=== PATIENT | female | born 1950 | race Caucasian/White ===

== ENCOUNTER 2018-09-28 06:50 | Outpatient (CLI) | payer MEDICARE ==
[~2018-09-28] VITALS: Ht 154.9 cm; Wt 81.6 kg
[2018-09-28] MEDS ORDERED: CIME800T63 PO (14:10)
[2018-09-28] MEDS ORDERED: PRAV20TA3 PO (14:10)
[2018-09-28] MEDS ORDERED: ASPI-586 PO (14:10)
[2018-09-28] MEDS ORDERED: METO-333 PO (14:10)
[2018-09-28] MEDS ORDERED: LOSA100T57 PO (14:10)
[2018-09-28] MEDS ORDERED: INSU100V16 SQ (14:16)
[2018-09-28] MEDS ORDERED: INSU100V6 SQ (14:16)
== END 2018-09-28 14:38 ==
LOC: PREOP 06:50
PROVIDERS: ATTEND Surgery
DX: Z01.818 Encounter for other preprocedural examination (principal)

== ENCOUNTER 2018-10-05 11:00 | Day surgery (SDC) | payer MEDICARE, BC ==
[~2018-10-05] VITALS: Ht 154.9 cm; Wt 81.6 kg
[~2018-10-05 11:00] MED LIST: ASPI-586 PO; CIME800T63 PO; INSU100V16 SQ; INSU100V6 SQ; LOSA100T57 PO; METO-333 PO; PRAV20TA3 PO
--- OUTSIDE RECORDS SUMMARY | 2018-10-05 11:11 | XMS REPORT | CCD ---
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 Phone KOREY BARRY, CUONG Berrios Attphykamar CUONG NAIR MD Allergies Allergy Code Allergy Type Reaction Status CODEINE 2670 Drug allergy Active Active Medications Medication Code Dose Units Frequency Route Modification Start Date/Time Aspirin 81MG Oral Tablet, Chewable 448369 81 MILLIGRAMS DAILY ORAL 03/13/2016 10:38 Prescription Detail 81 MILLIGRAMS ORAL DAILY Lantus 100U/1ML Subcutaneous Solution 769821 30 UNIT DAILY SUBCUTANEOUS 03/13/2016 10:38 Prescription Detail 30 UNIT SUBCUTANEOUS DAILY Losartan Potassium 25MG Oral Tablet 696442 25 MILLIGRAMS DAILY ORAL 03/13/2016 10:38 Prescription Detail 25 MILLIGRAMS ORAL DAILY metFORMIN HCl 500MG Oral Tablet 853967 1 TABLET DAILY BY MOUTH 03/13/2016 10:38 Prescription Detail 1 TABLET BY MOUTH DAILY x7 days, then take twice a day NovoLOG 100U/1ML Subcutaneous Solution 726081 1 EACH BEFORE EACH MEAL SUBCUTANEOUS 03/13/2016 10:38 Prescription Detail 1 EACH SUBCUTANEOUS BEFORE EACH MEAL Omeprazole 20 MG Oral Tablet, Delayed Release 274918 20 MG DAILY ORAL 03/13/2016 10:38 Prescription Detail 20 MG ORAL DAILY Problems Problem Code Start Date Resolved Date Status Acute pancreatitis 338826082 03/11/2016 Active Procedures Procedure Code Procedure Type Date FOOT [address] 05/11/2016 Results Unknown or Not Available. Encounters Encounter Diagnosis Diagnosis Code Start Date Contusion of left foot, initial encounter [id number] 05/11/2016 Function Status Unknown or Not Available. History of Immunizations Unknown or Not Available. Plan of Treatment Unknown or Not Available. Social History Smoking Status Code Start Date End Date Never smoker [id number] Vital Signs Unknown or Not Available. Function Status Unknown or Not Available. Goals Unknown or Not Available. ASSESSMENTS Unknown or Not Available. Health Concerns Section Unknown or Not Available.
--- OUTSIDE RECORDS SUMMARY | 2018-10-05 11:11 | XMS REPORT | CCD ---
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 Role Phone KAREEN BARRY, LEWIS Rodriguez Attphys 0 Allergies Allergy Code Allergy Type Reaction Status JANUVIA 138954 Drug allergy Active METFORMIN 6809 Drug allergy Active CLARITIN 788107 Drug allergy Active EPINEPHRINE 3992 Drug allergy Active CODEINE 2670 Drug allergy Active LIPITOR 819249 Drug allergy Active ACTOS 228845 Drug allergy Active DILAUDID 459290 Drug allergy Active HYDROCODONE 5489 Drug allergy Active VICODIN 789092 Drug allergy Active Active Medications Medication Code Dose Units Frequency Route Modification Start Date/Time Aspirin 81MG Oral Tablet, Chewable 842524 81 MILLIGRAMS DAILY ORAL 03/13/2016 10:38 Prescription Detail 81 MILLIGRAMS ORAL DAILY Problems Problem Code Start Date Resolved Date Status Vaginal AND cervical prolapse 91094785 Active Post-op pain 053228752 Active Procedures Unknown or Not Available. Results Unknown or Not Available. Function Status Unknown or Not Available. History of Immunizations Immunization Code Date pneumococcal polysaccharide PPV23 33 04/02/2017 Pneumococcal conjugate PCV 13 133 04/02/2016 Influenza, high dose seasonal 135 03/10/2017 influenza, injectable, quadrivalent, preservative free 150 2015 Plan of Treatment Unknown or Not Available. Social History Smoking Status Code Start Date End Date Never smoker [id number] Vital Signs Unknown or Not Available. Function Status Unknown or Not Available. Goals Unknown or Not Available. ASSESSMENTS Unknown or Not Available. Health Concerns Section Unknown or Not Available.
--- OUTSIDE RECORDS SUMMARY | 2018-10-05 11:11 | XMS REPORT | CCD ---
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 Allergies Allergy Code Allergy Type Reaction Status CODEINE 0 Drug allergy Active Procedures Unknown or Not Available. History of Immunizations Unknown or Not Available. Problems Unknown or Not Available. Results Unknown or Not Available. Active Medications Unknown or Not Available. Medications Administered During Visit Unknown or Not Available. Encounters Encounter Diagnosis Diagnosis Code Start Date Candidiasis, unspecified B379 09/07/2015 Social History Smoking Status Code Start Date End Date Never smoker [id number] Patient Decision Aids Unknown or Not Available. Discharge Instructions You were admitted to [facility] on 09/07/2015 22:24 with a principal diagnosis of Candidiasis, unspecified You were discharged from [facility] on 09/07/2015 23:41 Should you have any questions prior to discharge, please contact a member of your healthcare team. If you have left the hospital and have any questions, please contact your primary care physician. Chief Complaint and Reason For Visit Chief Complaint Date of Onset POSSIBLE MEDICATION REACTION Function Status Unknown or Not Available. Plan of Care Unknown or Not Available. Referral/Transition of Care Unknown or Not Available.
--- OUTSIDE RECORDS SUMMARY | 2018-10-05 11:11 | XMS REPORT ---
Discharge Summary 2.1 Created on: ALEYDA JOYNER : 1950 Sex: Female Author Author RAYMOND SILVA Unknown Address [address] [place], [place] [address] Care Team Providers Care Knifer Up Name Role Phone [employer]watchlist ROSENDA Auguste DO Attending [facility] [employer] MAX BERMUDEZ DO [facility] Functional Status No Data Found Immunization Immunization Date Status Additional Notes Code Code System pneumococcal polysaccharide PPV23 04/02/2017 Completed 33 CVX Pneumococcal conjugate PCV 13 04/02/2016 Completed 133 CVX Influenza, high dose seasonal 03/10/2017 Completed 135 CVX influenza, injectable, quadrivalent, preservative free 04/02 Completed 150 CVX influenza, injectable, quadrivalent, preservative free 04/08 Completed 150 CVX Mental Status No Data Found Results BEDSIDE GLUCOSE - Collect Date/Time: 07/21/2018 11:53 [facility] [employer] ID: [id number] [address], [place], [place], [address] [employer] ID: [id number] - [id number] [address], [place], [place], [address] LOINC: 22413-1 Test Value Unit Reference Range Code Code System GLUCOSE POCT 197 MG/DL L=70 H=100 96925-9 LOINC BEDSIDE GLUCOSE - Collect Date/Time: 07/21/2018 07:54 [employer] ID: [id number] [address], [place], [place], [address] [facility] [employer] ID: [id number] [address], [place], [place], [address] LOINC: 59247-3 Test Value Unit Reference Range Code Code System GLUCOSE POCT 165 MG/DL L=70 H=100 44526-4 LOINC CBC W/ MANUAL DIFF - Collect Date/Time: 07/21/2018 06:36 [facility] [employer] [facility] ID: [id number] [address] [facility] [address] [place], [place], [id number] [facility] ID: [id number] [address] [facility] [address], [place], [place], [address] LOINC: 26953-7 Test Value Unit Reference Range Code Code System WBC 6.8 TH/CMM L=4.5 H=10.8 98127-2 LOINC RBC 3.86 ML/CMM L= 4.20 H=5.40 789-8 LOINC HGB 10.6 G/DL L=12.0 H=16.0 718-7 LOINC HCT 33.9 % L=37.0 H=47.0 4544-3 LOINC MCV 88 FL L=81 H =99 MCH 27.5 PG L=27.0 H=33.0 MCHC 31.3 G/DL L=31.0 H=36.0 RDW SD 50 FL L=36 H=50 RDW CV 15.6 % L=0.0 H=14.8 MPV 10.0 FL L=9.3 H=12.5 PLT 272 TH/CMM L=130 H=440 777-3 LOINC NRBC# 0.00 TH/CMM L= 0.00 H=0.00 NRBC% 0.0 /100WBC L= 0.0 H=2.0 %NEUT 70.8 % %LYMP 19.3 % %MONO 6.1 % %EOS 2.8 % %BASO 0.4 % #NEUT 4.84 TH/CMM L= 2.10 H=8.20 #LYMP 1.32 TH/CMM L= 0.90 H=5.20 #MONO 0.42 TH/CMM L= 0.16 H=1.00 #EOS 0.19 TH/CMM L= 0.00 H=0.80 #BASO 0.03 TH/CMM L= 0.00 H=0.20 SEGS 78 % BANDS LYMPHS 17 % MONOS 4 % EOS 1 % BASO METAS MYELO PROS BLASTS ATYP LYMPHS RBC MORPH MICRO MACRO ANISO POIK HYPO 1+ POLYCHROMASIA COMPREHENSIVE METABOLIC PANEL - Collect Date/Time: 07/21/2018 06:36 [facility] ID: [id number] [address], [place], [place], [address] [facility] ID: [id number] [address] [facility] [address], [place], [place], [address] LOINC: 43011-2 Test Value Unit Reference Range Code Code System GLUCOSE 187 MG/DL L= 70 H=100 2345-7 LOINC SODIUM 142 MEQ/L L= 135 H=148 2951-2 LOINC POTASSIUM 4.6 MEQ/L L= 3.5 H=5.3 2823-3 LOINC CHLORIDE 115 MEQ/L L= 96 H=110 2075-0 LOINC CO2 21 MEQ/L L=22 H=29 2028-9 LOINC BUN 14 MG/DL L=8 H=22 3094-0 LOINC CREATININE 0.8 MG/DL L =0.6 H=1.6 2160-0 LOINC SGOT/AST 13 IU/L L=10 H=40 1920-8 LOINC SGPT/ALT 14 IU/L L=8 H=54 1742-6 LOINC ALK PHOS 66 IU/L L=35 H=115 6768-6 LOINC TOTAL PROTEIN 5.6 G/DL L=5.5 H=8.5 2885-2 LOINC ALBUMIN 3.0 G/DL L= 3.1 H=5.4 1751-7 LOINC TOTAL BILI 0.2 MG/DL L =0.0 H=1.5 1975-2 LOINC CALCIUM 7.7 MG/DL L= 8.2 H=10.6 49632-1 LOINC AGE 68 yrs GFR NonAA 71 GFR AA 86 eGFR 71 mL/min/1.7 eGFR AA* >60 BEDSIDE GLUCOSE - Collect Date/Time: 07/21/2018 01:29 [facility] [employer] ID: [id number] [address], [place], [place], [address] [employer] ID: [id number] - [id number] [address], [place], [place], [address] LOINC: 30048-9 Test Value Unit Reference Range Code Code System GLUCOSE POCT 166 MG/DL L=70 H=100 22070-7 LOINC BEDSIDE GLUCOSE - Collect Date/Time: 07/20/2018 20:41 [facility] [employer] ID: [id number] [address], [place], [place], [address] [employer] ID: [id number] - [id number] [address], [place], [place], [address] LOINC: 68798-1 Test Value Unit Reference Range Code Code System GLUCOSE POCT 266 MG/DL L=70 H=100 36513-4 LOINC BEDSIDE GLUCOSE - Collect Date/Time: 07/20/2018 16:44 [facility] [employer] ID: [id number] [address], [place], [place], [address] [employer] ID: [id number] - [id number] [address], [place], [place], [address] LOINC: 72533-3 Test Value Unit Reference Range Code Code System GLUCOSE POCT 189 MG/DL L=70 H=100 34770-5 LOINC BEDSIDE GLUCOSE - Collect Date/Time: 07/20/2018 11:57 [employer] ID: [id number] [address], [place], [place], [address] [facility] ID: [id number] [address], [place], [place], [address] LOINC: 32697-0 Test Value Unit Reference Range Code Code System GLUCOSE POCT 300 MG/DL L=70 H=100 75268-4 LOINC BEDSIDE GLUCOSE - Collect Date/Time: 07/20/2018 07:52 [facility] ID: [id number] [address], [place], [place], [address] [facility] ID: [id number] [address] [facility] [address], [place], [place], [address] LOINC: 27367-5 Test Value Unit Reference Range Code Code System GLUCOSE POCT 142 MG/DL L=70 H=100 00536-1 [facility] BASIC METABOLIC PANEL - Collect Date/Time: 07/20/2018 06:20 [facility] ID: [id number] [address], [place], [place], [address] [facility] ID: [id number] [address], [place], [place], [address] LOINC: 87368-9 Test Value Unit Reference Range Code Code System GLUCOSE 131 MG/DL L= 70 H=100 2345-7 LOINC SODIUM 143 MEQ/L L= 135 H=148 2951-2 LOINC POTASSIUM 3.3 MEQ/L L= 3.5 H=5.3 2823-3 LOINC CHLORIDE 107 MEQ/L L= 96 H=110 2075-0 LOINC CO2 25 MEQ/L L=22 H=29 2028-9 LOINC BUN 13 MG/DL L=8 H=22 3094-0 LOINC CREATININE 0.8 MG/DL L =0.6 H=1.6 2160-0 LOINC CALCIUM 8.5 MG/DL L= 8.2 H=10.6 89650-3 LOINC AGE 68 yrs GFR NonAA 71 GFR AA 86 eGFR 71 mL/min/1.7 eGFR AA* >60 CBC W/ AUTO DIFF (RFLX MAN DIFF IF IND) - Collect Date/Time: 07/20/2018 06:20 [facility] [employer] ID: [id number] [address], [place], [place], [address] [facility] [employer] [facility] ID: [id number] [address], [place], [place], [address] LOINC: 48533-4 Test Value Unit Reference Range Code Code System WBC 9.0 TH/CMM L=4.5 H=10.8 91717-6 LOINC RBC 4.26 ML/CMM L= 4.20 H=5.40 789-8 LOINC HGB 11.6 G/DL L=12.0 H=16.0 718-7 LOINC HCT 37.1 % L=37.0 H=47.0 4544-3 LOINC MCV 87 FL L=81 H =99 MCH 27.2 PG L=27.0 H=33.0 MCHC 31.3 G/DL L=31.0 H=36.0 RDW SD 49 FL L=36 H=50 RDW CV 15.6 % L=0.0 H=14.8 MPV 10.5 FL L=9.3 H=12.5 PLT 294 TH/CMM L=130 H=440 777-3 LOINC NRBC# 0.00 TH/CMM L= 0.00 H=0.00 NRBC% 0.0 /100WBC L= 0.0 H=2.0 %NEUT 70.2 % %LYMP 21.4 % %MONO 6.9 % %EOS 1.0 % %BASO 0.2 % #NEUT 6.31 TH/CMM L= 2.10 H=8.20 #LYMP 1.93 TH/CMM L= 0.90 H=5.20 #MONO 0.62 TH/CMM L= 0.16 H=1.00 #EOS 0.09 TH/CMM L= 0.00 H=0.80 #BASO 0.02 TH/CMM L= 0.00 H=0.20 MANUAL DIFF NOT IND BEDSIDE GLUCOSE - Collect Date/Time: 07/20/2018 03:08 [facility] ID: [id number] [address], [place], [place], [address] [facility] ID: [id number] [address], [place], [place], [address] LOINC: 05639-3 Test Value Unit Reference Range Code Code System GLUCOSE POCT 154 MG/DL L=70 H=100 82689-0 LOINC BEDSIDE GLUCOSE - Collect Date/Time: 07/19/2018 21:47 [facility] ID: [id number] [address], [place], [place], [address] [facility] ID: [id number] [address], [place], [place], [address] LOINC: 80731-6 Test Value Unit Reference Range Code Code System GLUCOSE POCT 124 MG/DL L=70 H=100 44564-8 LOINC UA ROUTINE C&S IF IND - Collect Date/Time: 07/19/2018 17:10 [facility] ID: [id number] [address], [place], [place], [address] [facility] ID: [id number] [address], [place], [place], [address] LOINC: Test Value Unit Reference Range Code Code System COLOR YELLOW NL: YELLOW APPEARANCE CLEAR NL : CLEAR SPEC GRAV 1.010 NL: 1.002 - 1.022 pH 8.0 NL: 5 - 9 PROTEIN NEGATIVE NL : NEGATIVE mg/dl GLUCOSE NEGATIVE NL : NEGATIVE mg/dl KETONE NEGATIVE NL: NEGATIVE mg/dl BILIRUBIN NEGATIVE NL: NEGATIVE BLOOD NEGATIVE NL: NEGATIVE NITRITE NEGATIVE NL : NEGATIVE LEUK SCREEN NEGATIVE NL: NEGATIVE MICRO INDICATED? NOT INDICATED CBC W/ AUTO DIFF (RFLX MAN DIFF IF IND) - Collect Date/Time: 07/19/2018 16:38 [facility] ID: [id number] [address], [place], [place], [address] [facility] [employer] [facility] [facility] ID: [id number] [address], [place], [place], [address] LOINC: Test Value Unit Reference Range Code Code System WBC 13.5 TH/CMM L=4.5 H=10.8 89265-2 LOINC RBC 4.69 ML/CMM L= 4.20 H=5.40 789-8 LOINC HGB 12.9 G/DL L=12.0 H=16.0 718-7 LOINC HCT 40.7 % L=37.0 H=47.0 4544-3 LOINC MCV 87 FL L=81 H =99 MCH 27.5 PG L=27.0 H=33.0 MCHC 31.7 G/DL L=31.0 H=36.0 RDW SD 49 FL L=36 H=50 RDW CV 15.6 % L=0.0 H=14.8 MPV 9.9 FL L=9.3 H=12.5 PLT 320 TH/CMM L=130 H=440 777-3 LOINC NRBC# 0.00 TH/CMM L= 0.00 H=0.00 NRBC% 0.0 /100WBC L= 0.0 H=2.0 %NEUT 74.9 % %LYMP 17.7 % %MONO 6.1 % %EOS 0.6 % %BASO 0.2 % #NEUT 10.14 TH/CMM L= 2.10 H=8.20 #LYMP 2.39 TH/CMM L= 0.90 H=5.20 #MONO 0.82 TH/CMM L= 0.16 H=1.00 #EOS 0.08 TH/CMM L= 0.00 H=0.80 #BASO 0.03 TH/CMM L= 0.00 H=0.20 MANUAL DIFF NOT IND LACTIC ACID - Collect Date/Time: 07/19/2018 16:38 [facility] ID: [id number] [address] [facility] [address], [place], [place], [address] [facility] ID: [id number] [address] [facility] [address], [place], [place], [address] LOINC: Test Value Unit Reference Range Code Code System LACTIC ACID 1.2 mmol/L L=0.5 H=1.6 2524-7 LOINC C REACTIVE PROTEIN - Collect Date/Time: 07/19/2018 16:38 [facility] ID: [id number] [address] [facility] [address], [place], [place], [address] [facility] ID: [id number] [address] [facility] [address], [place], [place], [address] LOINC: Test Value Unit Reference Range Code Code System C REACTIVE PROTEIN 23.5 MG/DL L=0.0 H=1.0 1988-5 LOINC COMPREHENSIVE METABOLIC PANEL - Collect Date/Time: 07/19/2018 16:38 [facility] ID: [id number] [address] [facility] [address], [place], [place], [address] [facility] ID: [id number] [address] [facility] [address], [place], [place], [address] LOINC: Test Value Unit Reference Range Code Code System GLUCOSE 70 MG/DL L=70 H=100 2345-7 LOINC SODIUM 141 MEQ/L L= 135 H=148 2951-2 LOINC POTASSIUM 3.7 MEQ/L L= 3.5 H=5.3 2823-3 LOINC CHLORIDE 103 MEQ/L L= 96 H=110 2075-0 LOINC CO2 28 MEQ/L L=22 H=29 2028-9 LOINC BUN 7 MG/DL L=8 H=22 3094-0 LOINC CREATININE 0.7 MG/DL L =0.6 H=1.6 2160-0 LOINC SGOT/AST 13 IU/L L=10 H=40 1920-8 LOINC SGPT/ALT 16 IU/L L=8 H=54 1742-6 LOINC ALK PHOS 82 IU/L L=35 H=115 6768-6 LOINC TOTAL PROTEIN 7.1 G/DL L=5.5 H=8.5 2885-2 LOINC ALBUMIN 3.9 G/DL L= 3.1 H=5.4 1751-7 LOINC TOTAL BILI 0.4 MG/DL L =0.0 H=1.5 1975-2 LOINC CALCIUM 9.6 MG/DL L= 8.2 H=10.6 72210-3 LOINC AGE 68 yrs GFR NonAA 83 GFR AA 101 eGFR 83 mL/min/1.7 eGFR AA* >60 ABDOMEN 2 VIEW DECUB/UPRIGHT - Completed: 07/19/2018 17:47 LOINC: EXAMINATION:ABDOMEN 2 VIEW DECUB/UPRIGHTREASON FOR EXAM:Abdominal Pain;Fever; Constipation, COMPARISON:December 02, 2017TECHNIQUE:Supine and upright views of the abdomen were obtained. FINDINGS:There are surgical clips in the gallbladder fossa. There are some nondilated air-filled small bowel loops. Some air and stool is seen in the colon. No pathologic calcification is seen. Soft tissue contours and bony structures are unremarkable.IMPRESSION:1.Nonspecific two-view abdomen without evidence of free air. 2.Few nondilated air-filled small bowel loops may represent ileus or gastroenteritis. Very low grade partial small bowel obstruction cannot be ruled out. Reviewed and Electronically Signed by: Mike Jensen MD DABRSigned Date/Time: 07/23/2018 12:08 PMJob ID#: [id number] CT ABD AND PELVIS W/CONTRAST - Completed: 07/19/2018 18:16 LOINC: EXAMINATION:CT ABD AND PELVIS W/CONTRASTREASON FOR EXAM:Reason for Abd Test: Abdominal Pain;Constipation;Fever;Left Lower Quad PainTECHNIQUE:2.5 mm axial images of the abdomen and pelvis were obtained after the administration of 100 mL of Omnipaque 300. Coronal reconstructions were performed. Automated exposure control was performed using [employer] Dose Management, which adjusts mA and/ or kV according to patient size.COMPARISON:None.FINDINGS:Lung bases: Lung windows show the lung bases to be clear.Liver: Normal.Gallbladder: Surgical clips are seen in the gallbladder fossa.Spleen: Normal.Pancreas: Normal.Adrenal glands: Normal.Kidneys: No renal or ureteral calcification is seen. No hydronephrosis is evident. No solid renal mass is seen.Bladder: UnremarkableBowel: There is thickening in the wall and adjacent inflammatory change involving the sigmoid colon. The colon and small bowel is otherwise fluid-filled. There are some scattered colonic diverticula. No abrupt transition in caliber is seen in the small bowel. No abnormal dilatation is evident.Periaortic space: No para-aortic adenopathy or mass is seen. Pelvis: No pelvic mass or pathologically enlarged lymph nodes are seen.Peritoneum: No free air or free fluid is seen. No focal fluid collection or abscess is seen.IMPRESSION:1.Findings suggest acute diverticulitis in the sigmoid colon. Significant wall thickening is seen with adjacent inflammatory change. 2.No intraperitoneal abscess or fluid collection is seen. No free air or free fluid is noted. 3.Previous cholecystectomy. 4.The CT abdomen and pelvis with contrast is otherwise unremarkable. V rad created a report July 19, 2018 at 1913 hours. Reviewed and Electronically Signed by: Mike Jensen MD DABRSigned Date/ Time: 07/24/2018 11:17 AMJob ID#: [id number] CX CHEST 1 VIEW - Completed: 07/19/2018 16:47 LOINC: EXAMINATION:CX CHEST 1 VIEWREASON FOR EXAM:Cough;Fever; COMPARISON:AprilFINDINGS:The cardiac silhouette, mediastinum and pulmonary vascularity are normal. No consolidating infiltrate, pleural effusion or pneumothorax is seen. IMPRESSION:No acute cardiopulmonary disease is seen.Reviewed and Electronically Signed by: Mike Jensen MD DABRSigned Date/Time: 07/23/2018 12: 06 PMJob ID#: [id number] Social History Type Status Start Date End Date Code Code System Smoking History Never smoker (Never Smoked) 080606228 [employer] Smoking History Former smoker 08/02/2008 1104671 SNOMED-CT Vital Signs Vital Sign Value Unit Rosebud Value Rosebud Unit Date/Time Recent/Initial? Code Code System Body Mass Index 36.20 kg/m2 07/21/2018 03:30 Most Recent 18093-7 LOINC Body Mass Index 34.77 kg/m2 07/19/2018 21:05 Initial 78223-2 LOINC Systolic Blood Pressure 153 mm[Hg] 07/21/2018 15:32 Most Recent 8480-6 LOINC Diastolic Blood Pressure 73 mm[Hg] 07/21/2018 15:32 Most Recent 8462-4 LOINC Systolic Blood Pressure 146 mm[Hg] 07/19/2018 21:05 Initial 8480-6 LOINC Diastolic Blood Pressure 78 mm[Hg] 07/19/2018 21:05 Initial 8462-4 LOINC Body Surface Area 1.93 m2 07/21/2018 03:30 Most Recent 3140-1 LOINC Body Surface Area 1.90 m2 07/19/2018 21:05 Initial 3140-1 LOINC Height 154.9400 cm 61.00 in 07/21/2018 03:30 Most Recent 8302-2 LOINC Height 154.9400 cm 61.00 in 07/19/2018 21:05 Initial 8302-2 LOINC O2 Saturation 96 % 07/21/2018 15:32 Most Recent 70388-7 LOINC O2 Saturation 96 % 07/19/2018 21:05 Initial 35958-1 LOINC Pulse 71.0 /min 07/21/2018 15:32 Most Recent 8867-4 LOINC Pulse 98.0 /min 07/19/2018 21:05 Initial 8867-4 LOINC Respiration 20 /min 07/21/2018 15:32 Most Recent 9279-1 LOINC Respiration 20 /min 07/19/2018 21:05 Initial 9279-1 LOINC Temperature 36.7 Alyce 98.1 F 07/21/2018 15:32 Most Recent 8310-5 LOINC Temperature 36.6 Alyce 97.9 F 07/19/2018 21:05 Initial 8310-5 LOINC Weight 86.9083 kg 191.60 lbs 07/21/2018 03:30 Most Recent 18104-9 LOINC Weight 83.461 kg 184.00 lbs 07/19/2018 21:05 Initial 26831-1 LOINC Assessment You had the following problems: DIVERTICULITIS PARTIAL OBSTRUCTION OF SMALL INTESTINE TACHYCARDIA CHEST PAIN DIABETES 2 HYPERTENSION Hospital Discharge Instructions Should you have any questions prior to discharge, please contact a member of your healthcare team. If you have left the hospital and have any questions, please contact your primary care physician. PERSONAL ITEMS RETURNED: Yes. SCRIPTS WRITTEN BY DOCTOR GIVEN TO PATIENT? Yes, for what?,LEVAQUIN 500MG DAILY FOR 10 DAYS AND FLAGYL 500MG EVERY 8 HOURS FOR 10 DAYS. HOME DIET: DIABETIC DIET. CONTACT PHYSICIAN IF YOU EXPERIENCE ANY: fever, pain, Shortness of Breath, Nausea/Vomiting. INSTRUCTIONS GIVEN AND DISCHARGE TO: Patient. INSTRUCTIONS GIVEN BY (TYPE IN NAME AND DATE) Yash BAI RN. 07/21/18 ACTIVITY INSTRUCTIONS(list limitations): Activity as Tolerated. FOLLOW UP APPOINTMENT: FOLLOW UP WITH DR. HERZOG ON 08/05/17 AT 10AM Reason For Referral No Data Found Hospital Course You were admitted to [facility] on 07/19/2018 19:28 with a principal diagnosis of Diverticulitis of large intestine without perforation or abscess without b You were discharged from [facility] on 07/21/2018 17:25 Medications Medication Start Date End Date Route Frequency Dose Code Code System Metoprolol Tartrate 25MG Oral Tablet 04/17/2018 Unknown BY MOUTH TWO TIMES A DAY 25 MILLIGRAMS 448528 RxNorm Lantus 100U/1ML Subcutaneous Solution 04/17/2018 Unknown SUBCUTANEOUS TWO TIMES A DAY 30 UNIT 801616 RxNorm Calcium Carbonate 500MG Oral Tablet 04/17/2018 Unknown ORAL DAILY 500 MILLIGRAMS RxNorm oxyCODONE HCl-acetaminophen 5MG-325MG Oral Tablet 2017 Unknown ORAL EVERY 6 HOURS 1 unit(s) 6545338 RxNorm glipiZIDE 10MG Oral Tablet 04/17/2018 Unknown ORAL DAILY 10 MILLIGRAMS 037544 RxNorm ZyrTEC 10MG Oral Tablet 04/17/2018 Unknown ORAL DAILY 10 MILLIGRAMS 8106206 RxNorm One Daily Women's Oral Tablet 04/17/2018 Unknown ORAL DAILY 1 unit(s) 7643529 RxNorm NovoLOG 100U/1ML Subcutaneous Solution 04/17/2018 Unknown SUBCUTANEOUS NEEDED 1 unit(s) 184573 RxNorm Losartan Potassium 100MG Oral Tablet 04/17/2018 Unknown ORAL WITH SUPPER 100 MILLIGRAMS 198690 RxNorm Flagyl 500MG Oral Tablet 07/21/2018 Unknown BY MOUTH EVERY 8 HOURS 1 TABLET 568027 RxNorm Levaquin 500MG Oral Tablet 07/21/2018 Unknown BY MOUTH DAILY 1 TABLET 749620 RxNorm Procedures No Data Found Implants No Data Found Problems Problem Start Date Resolved Date Status Code Code System DIVERTICULITIS active 702943396 SNOMED-CT PARTIAL OBSTRUCTION OF SMALL INTESTINE active 451007407 SNOMED-CT TACHYCARDIA active 3712429 SNOMED-CT CHEST PAIN active 20884469 SNOMED-CT DIABETES 2 active 00618840 SNOMED-CT HYPERTENSION active 44782007 SNOMED-CT ACUTE PANCREATITIS 04/27/2016 resolved 354900015 SNOMED-CT POST-OP PAIN 04/16/2018 resolved 380513746 SNOMED-CT VAGINAL AND CERVICAL PROLAPSE 2017 resolved 50688558 SNOMED-CT Allergies Allergy Substance Reaction Severity Start Date Concern Status Code Code System CODEINE Mild Active 2670 RxNorm EPINEPHRINE Mild to Moderate Active 3992 RxNorm HYDROCODONE Mild to Moderate Active 5489 RxNorm METFORMIN Mild to Moderate Active 6809 RxNorm ACTOS Mild to Moderate Active 724877 RxNorm DILAUDID Mild to Moderate Active 260971 RxNorm LIPITOR Mild to Moderate Active 582045 RxNorm VICODIN Mild to Moderate Active 839754 RxNorm CLARITIN Mild to Moderate Active 493875 RxNorm JANUVIA Mild to Moderate Active 106019 RxNorm INVOKANA Mild to Moderate Active 2989022 RxNorm Plan of Treatment No Data Found Encounters No Data Found Goals No Data Found Discharge Medications No Data Found Discharge Diagnosis Discharge Diagnosis Diagnosis Code Start Date Diverticulitis of large intestine without perforation or abscess without b K5732 07/19/2018 Health Concerns Section No Data Found
--- OUTSIDE RECORDS SUMMARY | 2018-10-05 11:11 | XMS REPORT | CCD ---
Author Author GEORGIA HOLT Organization Unknown Address [address] [place], [place] [address] Care Team Providers Care Careers Adviser Name Role Phone LEIVA, MALAIKA DO Attphys LEIVA, MALAIKA DO Prisurg Vital Signs Unknown or Not Available. Allergies Allergy Code Allergy Type Reaction Status CODEINE 0 Drug allergy Active Procedures Procedure Code Procedure Type Date CX CHEST [address] 09/16/2015 ^CBC W/AUTO DIFF 0364453 SNOMED CT 09/16/2015 TROPONIN-I ADV 513674741 SNOMED CT 09/16/2015 COMPREHENSIVE METABOLIC PANEL 102537389 SNOMED CT 2015 CBC W/ AUTO DIFF (RFLX MAN DIFF IF IND) 3786152 SNOMED CT 09/16/2015 BEDSIDE GLUCOSE 89788377 SNOMED CT 09/16/2015 History of Immunizations Unknown or Not Available. Problems Unknown or Not Available. Results BEDSIDE GLUCOSE - Collect Date/Time: 09/16/2015 03:17 Test Name Code Test Result Test Units Test Ref Range GLUCOSE POCT 148 MG/DL L=70 H=100 COMPREHENSIVE METABOLIC PANEL - Collect Date/Time: 09/16/2015 03:30 Test Name Code Test Result Test Units Test Ref Range GLUCOSE 2345-7 178 MG/DL L=70 H=100 SODIUM 2951-2 141 MEQ/L L=135 H=148 POTASSIUM 2823-3 4.4 MEQ/L L=3.5 H=5.3 CHLORIDE 2075-0 105 MEQ/L L=96 H=110 CO2 2028-9 26 MEQ/L L=22 H=29 BUN 3094-0 25 MG/DL L=8 H=22 CREATININE 2160-0 0.8 MG/DL L=0.6 H=1.6 SGOT/AST 1920-8 11 IU/L L=10 H=40 SGPT/ALT 1742-6 38 IU/L L=8 H=54 ALK PHOS 6768-6 95 IU/L L=35 H=115 TOTAL PROTEIN 2885-2 6.5 G/DL L=5.5 H=8.5 ALBUMIN 1751-7 4.1 G/DL L=3.1 H=5.4 TOTAL BILI 1975-2 0.3 MG/DL L=0.0 H=1.5 CALCIUM 08953-1 9.4 MG/DL L=8.2 H=10.6 AGE 65 yrs GFR NonAA 72 GFR AA 87 eGFR >60 N/A eGFR AA* >60 N/A CBC W/ AUTO DIFF (RFLX MAN DIFF IF IND) - Collect Date/Time: 09/16/2015 03:30 Test Name Code Test Result Test Units Test Ref Range WBC 30108-0 11.3 TH/CMM L=4.5 H=10.8 RBC 789-8 4.90 ML/CMM L=4.20 H=5.40 HGB 718-7 13.8 G/DL L=12.0 H=16.0 HCT 4544-3 42.8 % L=37.0 H=47.0 MCV 87 FL L=81 H=99 MCH 28.2 PG L=27.0 H=33.0 MCHC 32.2 G/DL L=31.0 H=36.0 RDW SD 48 FL L=36 H=50 RDW CV 15.1 % L=0.0 H=14.8 MPV 10.0 FL L=9.3 H=12.5 PLT 777-3 441 TH/CMM L=130 H=440 NRBC# 0.00 TH/CMM L=0.00 H=0.00 NRBC% 0.0 /100WBC L=0.0 H=2.0 %NEUT 76.4 % %LYMP 16.6 % %MONO 6.9 % %EOS 0.0 % %BASO 0.1 % #NEUT 8.64 TH/CMM L=2.10 H=8.20 #LYMP 1.88 TH/CMM L=0.90 H=5.20 #MONO 0.78 TH/CMM L=0.16 H=1.00 #EOS 0.00 TH/CMM L=0.00 H=0.80 #BASO 0.01 TH/CMM L=0.00 H=0.20 MANUAL DIFF NOT IND N/A TROPONIN-I ADV - Collect Date/Time: 09/16/2015 03:30 Test Name Code Test Result Test Units [place] [address]-2 <0.04 ng/mL L=0.04 H= 0.40 Active Medications Unknown or Not Available. Medications Administered During Visit Unknown or Not Available. Encounters Encounter Diagnosis Diagnosis Code Start Date Esophagitis, unspecified K209 09/16/2015 Social History Smoking Status Code Start Date End Date Never smoker [id number] Patient Decision Aids Unknown or Not Available. Discharge Instructions You were admitted to [facility] on 09/16/2015 with a principal diagnosis of Esophagitis, unspecified. You were discharged from [facility] on 09/16/2015. Should you have any questions prior to discharge, please contact a member of your healthcare team. If you have left the hospital and have any questions, please contact your primary care physician. Chief Complaint and Reason For Visit Chief Complaint Date of Onset CHEST PAIN Function Status Unknown or Not Available. Plan of Care Unknown or Not Available. Referral/Transition of Care Unknown or Not Available.
--- OUTSIDE RECORDS SUMMARY | 2018-10-05 11:12 | XMS REPORT | CCD ---
Author Author LETA ADKINS Organization Unknown Address [address] [place] [address] Care Team Providers Care Credentialing Analyst Name Role Phone ROSA M LINCOLN MD Attphys ROSA M LINCOLN MD Prisurg Allergies Allergy Code Allergy Type Reaction Status JAZZY 725538 Drug allergy Active METFORMIN 6809 Drug allergy Active CLARITIN 596724 Drug allergy Active EPINEPHRINE 3992 Drug allergy Active CODEINE 2670 Drug allergy Active LIPITOR 283915 Drug allergy Active ACTOS 918458 Drug allergy Active DILAUDID 088749 Drug allergy Active HYDROCODONE 5489 Drug allergy Active VICODIN 869025 Drug allergy Active Active Medications Medication Code Dose Units Frequency Route Modification Start Date/Time Aspirin 81MG Oral Tablet, Chewable 194360 81 MILLIGRAMS DAILY ORAL 03/13/2016 10:38 Prescription Detail 81 MILLIGRAMS ORAL DAILY Lantus 100U/1ML Subcutaneous Solution 158427 30 UNIT DAILY SUBCUTANEOUS 03/13/2016 10:38 Prescription Detail 30 UNIT SUBCUTANEOUS DAILY Losartan Potassium 25MG Oral Tablet 469397 25 MILLIGRAMS DAILY ORAL 03/13/2016 10:38 Prescription Detail 25 MILLIGRAMS ORAL DAILY metFORMIN HCl 500MG Oral Tablet 283421 1 TABLET DAILY BY MOUTH 03/13/2016 10:38 Prescription Detail 1 TABLET BY MOUTH DAILY x7 days, then take twice a day NovoLOG 100U/1ML Subcutaneous Solution 737278 1 EACH BEFORE EACH MEAL SUBCUTANEOUS 03/13/2016 10:38 Prescription Detail 1 EACH SUBCUTANEOUS BEFORE EACH MEAL Omeprazole 20 MG Oral Tablet, Delayed Release 569575 20 MG DAILY ORAL 03/13/2016 10:38 Prescription Detail 20 MG ORAL DAILY Problems Problem Code Start Date Resolved Date Status Acute pancreatitis 566269219 03/11/2016 Active Procedures Procedure Code Procedure Type Date CX CHEST [address] 11/05/[address] 11/05/2016 TROPONIN-I ADV 093458176 [facility] CT 11/05/2016 LIPASE 27190994 [facility] CT 11/05/2016 COMPREHENSIVE METABOLIC PANEL 518879588 [facility] CT 2016 CBC W/ AUTO DIFF (RFLX MAN DIFF IF IND) 7156722 [facility] CT 11/05/2016 ^CBC W/AUTO DIFF 7007793 [facility] CT 11/05/2016 Results COMPREHENSIVE METABOLIC PANEL - Collect Date/Time: 11/05/2016 19:25 Test Name Code Test Result Test Units Test Ref Range GLUCOSE 2345-7 120 MG/DL L=70 H=100 SODIUM 2951-2 142 MEQ/L L=135 H=148 POTASSIUM 2823-3 3.7 MEQ/L L=3.5 H=5.3 CHLORIDE 2075-0 106 MEQ/L L=96 H=110 CO2 2028-9 25 MEQ/L L=22 H=29 BUN 3094-0 13 MG/DL L=8 H=22 CREATININE 2160-0 0.8 MG/DL L=0.6 H=1.6 SGOT/AST 1920-8 24 IU/L L=10 H=40 SGPT/ALT 1742-6 49 IU/L L=8 H=54 ALK PHOS 6768-6 98 IU/L L=35 H=115 TOTAL PROTEIN 2885-2 6.3 G/DL L=5.5 H=8.5 ALBUMIN 1751-7 3.8 G/DL L=3.1 H=5.4 TOTAL BILI 1975-2 0.2 MG/DL L=0.0 H=1.5 CALCIUM 51082-8 9.1 MG/DL L=8.2 H=10.6 AGE 66 yrs GFR NonAA 72 GFR AA 87 eGFR >60 N/A eGFR AA* >60 N/A LIPASE - Collect Date/Time: 11/05/2016 19:25 Test Name Code Test Result Test Units Test Ref Range LIPASE 3040-3 20 U/L L=8 H=78 CBC W/ AUTO DIFF (RFLX MAN DIFF IF IND) - Collect Date/Time: 11/05/2016 19:25 Test Name Code Test Result Test Units Test Ref Range WBC 91000-0 8.6 TH/CMM L=4.5 H=10.8 RBC 789-8 4.42 ML/CMM L=4.20 H=5.40 HGB 718-7 12.4 G/DL L=12.0 H=16.0 HCT 4544-3 39.3 % L=37.0 H=47.0 MCV 89 FL L=81 H=99 MCH 28.1 PG L=27.0 H=33.0 MCHC 31.6 G/DL L=31.0 H=36.0 RDW SD 47 FL L=36 H=50 RDW CV 14.6 % L=0.0 H=14.8 MPV 10.0 FL L=9.3 H=12.5 PLT 777-3 283 TH/CMM L=130 H=440 NRBC# 0.00 TH/CMM L=0.00 H=0.00 NRBC% 0.0 /100WBC L=0.0 H=2.0 %NEUT 51.6 % %LYMP 36.8 % %MONO 8.0 % %EOS 2.6 % %BASO 0.5 % #NEUT 4.42 TH/CMM L=2.10 H=8.20 #LYMP 3.15 TH/CMM L=0.90 H=5.20 #MONO 0.68 TH/CMM L=0.16 H=1.00 #EOS 0.22 TH/CMM L=0.00 H=0.80 #BASO 0.04 TH/CMM L=0.00 H=0.20 MANUAL DIFF NOT IND N/A BNP - Collect Date/Time: 11/05/2016 19:25 Test Name Code Test Result Test Units Test Ref Range BNP 27364-5 52 PG/ML L=0 H=100 TROPONIN-I ADV - Collect Date/Time: 11/05/2016 19:25 Test Name Code Test Result Test Units [place] [address]-6 <0.04 ng/mL L=0.04 H= 0.40 Function Status Unknown or Not Available. History of Immunizations Immunization Code Date Pneumococcal conjugate PCV 13 133 04/02/2016 influenza, injectable, quadrivalent, preservative free 150 2015 Plan of Treatment Unknown or Not Available. Social History Smoking Status Code Start Date End Date Never smoker 668665483 Vital Signs Unknown or Not Available. Function Status Unknown or Not Available. Goals Unknown or Not Available. ASSESSMENTS Unknown or Not Available. Health Concerns Section Unknown or Not Available.
--- OUTSIDE RECORDS SUMMARY | 2018-10-05 11:12 | XMS REPORT | CCD ---
Author Author LETA ADKINS Organization Unknown Address [address] [address] [address] [place] [address] Care Team Providers Care Transit Survey Worker Name Role Phone KOREY BARRY, CUONG Berrios Attphykamar CUONG NAIR MD Allergies Allergy Code Allergy Type Reaction Status CODEINE 2670 Drug allergy Active Active Medications Medication Code Dose Units Frequency Route Modification Start Date/Time Aspirin 81MG Oral Tablet, Chewable 971581 81 MILLIGRAMS DAILY ORAL 03/13/2016 10:38 Prescription Detail 81 MILLIGRAMS ORAL DAILY Lantus 100U/1ML Subcutaneous Solution 952319 30 UNIT DAILY SUBCUTANEOUS 03/13/2016 10:38 Prescription Detail 30 UNIT SUBCUTANEOUS DAILY Losartan Potassium 25MG Oral Tablet 882342 25 MILLIGRAMS DAILY ORAL 03/13/2016 10:38 Prescription Detail 25 MILLIGRAMS ORAL DAILY metFORMIN HCl 500MG Oral Tablet 704108 1 TABLET DAILY BY MOUTH 03/13/2016 10:38 Prescription Detail 1 TABLET BY MOUTH DAILY x7 days, then take twice a day NovoLOG 100U/1ML Subcutaneous Solution 455624 1 EACH BEFORE EACH MEAL SUBCUTANEOUS 03/13/2016 10:38 Prescription Detail 1 EACH SUBCUTANEOUS BEFORE EACH MEAL Omeprazole 20 MG Oral Tablet, Delayed Release 613374 20 MG DAILY ORAL 03/13/2016 10:38 Prescription Detail 20 MG ORAL DAILY Problems Problem Code Start Date Resolved Date Status Acute pancreatitis 087438030 03/11/2016 Active Procedures Procedure Code Procedure Type Date FOOT 3 VIE[address] 00524715 SNOM[address] 05/11/2016 Results Unknown or Not Available. Encounters Encounter Diagnosis Diagnosis Code Start Date Contusion of left foot, initial encounter [id number] 05/11/2016 Function Status Unknown or Not Available. History of Immunizations Unknown or Not Available. Plan of Treatment Unknown or Not Available. Social History Smoking Status Code Start Date End Date Never smoker 165706371 Vital Signs Unknown or Not Available. Function Status Unknown or Not Available. Goals Unknown or Not Available. ASSESSMENTS Unknown or Not Available. Health Concerns Section Unknown or Not Available.
--- OUTSIDE RECORDS SUMMARY | 2018-10-05 11:12 | XMS REPORT | CCD ---
Author Author GEORGIA HOLT Organization Unknown Address [address] [place] [id number] Care Team Providers Care Associate Sales Manager Name Role Phone HANDSHY ER, CHICO BARRY [...] Encounters Encounter Diagnosis Diagnosis Code Start Date Acute bronchitis, unspecified J209 08/04/2015 Social History Smoking Status Code Start Date End Date Never smoker 266596869 Patient Decision Aids Unknown or Not Available. Discharge Instructions You were admitted to [facility] on 08/04/2015 with a principal diagnosis of Acute bronchitis, unspecified. You were discharged from [facility] on 08/04/2015. Should you have any questions prior to discharge, please contact a member of your healthcare team. If you have left the hospital and have any questions, please contact your primary care physician. Chief Complaint and Reason For Visit Chief Complaint Date of Onset HEADACHE THROAT HURTS PRODUCTIVE COUGH Function Status Unknown or Not Available. Plan of Care Unknown or Not Available. Referral/Transition of Care Unknown or Not Available.
--- OUTSIDE RECORDS SUMMARY | 2018-10-05 11:12 | XMS REPORT | CCD ---
Author RAYMOND Gómez Unknown Address [address] [place] [address] Care Team Providers Care Signs Cleaner Name Role Phone LEIVA, MALAIKA DO Attphys LEIVA, MALAIKA DO Prisurg Allergies Allergy Code Allergy Type Reaction Status JANUVIA 450583 Drug allergy Active METFORMIN 6809 Drug allergy Active CLARITIN 857964 Drug allergy Active EPINEPHRINE 3992 Drug allergy Active CODEINE 2670 Drug allergy Active LIPITOR 359698 Drug allergy Active ACTOS 753839 Drug allergy Active DILAUDID 147449 Drug allergy Active HYDROCODONE 5489 Drug allergy Active VICODIN 520741 Drug allergy Active Active Medications Medication Code Dose Units Frequency Route Modification Start Date/Time Aspirin 81MG Oral Tablet, Chewable 981375 81 MILLIGRAMS DAILY ORAL 03/13/2016 10:38 Prescription Detail 81 MILLIGRAMS ORAL DAILY Lantus 100U/1ML Subcutaneous Solution 138708 30 UNIT DAILY SUBCUTANEOUS 03/13/2016 10:38 Prescription Detail 30 UNIT SUBCUTANEOUS DAILY Losartan Potassium 25MG Oral Tablet 602163 25 MILLIGRAMS DAILY ORAL 03/13/2016 10:38 Prescription Detail 25 MILLIGRAMS ORAL DAILY metFORMIN HCl 500MG Oral Tablet 927029 1 TABLET DAILY BY MOUTH 03/13/2016 10:38 Prescription Detail 1 TABLET BY MOUTH DAILY x7 days, then take twice a day NovoLOG 100U/1ML Subcutaneous Solution 929805 1 EACH BEFORE EACH MEAL SUBCUTANEOUS 03/13/2016 10:38 Prescription Detail 1 EACH SUBCUTANEOUS BEFORE EACH MEAL Omeprazole 20 MG Oral Tablet, Delayed Release 451377 20 MG DAILY ORAL 03/13/2016 10:38 Prescription Detail 20 MG ORAL DAILY Problems Problem Code Start Date Resolved Date Status Acute pancreatitis 372549848 03/11/2016 Active Procedures Procedure Code Procedure Type Date CX CHEST [address] 07/02/2016 CULTURE URINE 492867890 SNOMED CT 07/02/2016 UA ROUTINE C&S IF IND 563319103 SNOMED CT 07/02/2016 ^CULTURE AEROBIC ID [id number] SNOMED CT 07/02/2016 ^CULTURE URINE IDENTIFICATION 988933691 SNOMED CT 2015 ^UA WITH MICRO 829982479 SNOMED CT 07/02/2016 Results UA ROUTINE C&S IF IND - Collect Date/Time: 07/02/2016 11:05 Test Name Code Test Result Test Units Test Ref Range COLOR YELLOW N/A NL: YELLOW APPEARANCE CLEAR N/A NL: CLEAR SPEC GRAV 1.015 N/A NL: 1.002 - 1.022 pH 6.0 N/A NL: 5 - 9 PROTEIN NEGATIVE N/A NL: NEGATIVE mg/dl GLUCOSE NEGATIVE N/A NL: NEGATIVE mg/dl KETONE NEGATIVE N/A NL: NEGATIVE mg/dl BILIRUBIN NEGATIVE N/A NL: NEGATIVE BLOOD NEGATIVE N/A NL: NEGATIVE NITRITE NEGATIVE N/A NL: NEGATIVE LEUK SCREEN SMALL N/A NL: NEGATIVE MICRO INDICATED? SEE BELOW N/A WBC/HPF 10-20 N/A NL: NEGATIVE RBC/HPF RARE N/A NL: NEGATIVE CASTS/LPF NEGATIVE N/A NL: NEGATIVE CRYSTALS NEGATIVE N/A NL: NEGATIVE MUCOUS THRDS NEGATIVE N/A NL: NEGATIVE BACTERIA 1+ N/A NL: NEGATIVE EPITH CELLS FEW SQUAMOUS N/A NL: NEGATIVE TRICHOMONAS NEGATIVE N/A NL: NEGATIVE YEAST NEGATIVE N/A NL: NEGATIVE CULT SET UP? YES N/A Function Status Unknown or Not Available. History of Immunizations Unknown or Not Available. Plan of Treatment Unknown or Not Available. Social History Smoking Status Code Start Date End Date Never smoker 457147884 Vital Signs Unknown or Not Available. Function Status Unknown or Not Available. Goals Unknown or Not Available. ASSESSMENTS Unknown or Not Available. Health Concerns Section Unknown or Not Available.
--- OUTSIDE RECORDS SUMMARY | 2018-10-05 11:12 | XMS REPORT | CCD ---
Author Author LETA ADKINS Organization Unknown Address [address] [place], [place] [id number] Care Team Providers Care Booth Supervisor Name Role Phone [facility], MARILYN DO Attphys [facility], JUAN BECERRA Prisurg A., NETTIE NASST G., ASHLYN NASST G., RUDY NASST W., YOSVANY NASST S., BRAD NASST K., WILMAR NASST S., HAILE Gracia NASST G., KIP NASST R., BRUNO Rodriguez NASST S., RAOUL NASST R., LILIANA Gracia NASST T., EMANUEL FLORES NASST Vital Signs Vital Sign Value Unit Date/Time Recent/Initial? Weight Measured 182.2 lbs 03/11/2016 17:01 Initial VS Height 62 in 03/11/2016 17:01 Initial VS BMI (Body Mass Index) 33.32 kg/m^2 03/11/2016 17:01 Initial VS BSA (Body Surface Area) 1.9 m^2 03/11/2016 17:01 Initial VS BP Systolic 151 mmHg 03/11/2016 17:01 Initial VS BP Diastolic 80 mmHg 03/11/2016 17:01 Initial VS Respiratory Rate 22 bpm 03/11/2016 17:01 Initial VS Heart Rate 105 bpm 03/11/2016 17:01 Initial VS O2 % BldC Oximetry 94 % 03/11/2016 17:01 Initial VS Body Temperature 99.6 degrees 03/11/2016 17:01 Initial VS BP Systolic 141 mmHg 03/13/2016 10:50 Most Recent VS BP Diastolic 76 mmHg 03/13/2016 10:50 Most Recent VS Respiratory Rate 18 bpm 03/13/2016 10:50 Most Recent VS Heart Rate 99 bpm 03/13/2016 10:50 Most Recent VS O2 % BldC Oximetry 97 % 03/13/2016 10:50 Most Recent VS Body Temperature 98.3 degrees 03/13/2016 10:50 Most Recent VS Allergies Allergy Code Allergy Type Reaction Status CODEINE 2670 Drug allergy Active Procedures Procedure Code Procedure Type Date CX CHEST [address] 03/12/2016 ABDOMEN ACUTE SERIES 4115723 SNOMED CT 03/11/2016 BEDSIDE GLUCOSE 33533792 SNOMED CT 03/13/2016 BEDSIDE GLUCOSE 69178668 SNOMED CT 03/13/2016 BEDSIDE GLUCOSE 31812262 SNOMED CT 03/13/2016 BEDSIDE GLUCOSE 59139858 SNOMED CT 03/12/2016 BEDSIDE GLUCOSE 13747226 SNOMED CT 03/12/2016 BEDSIDE GLUCOSE 84613999 SNOMED CT 03/12/2016 BEDSIDE GLUCOSE 86428428 SNOMED CT 03/12/2016 BEDSIDE GLUCOSE 68874726 SNOMED CT 03/11/2016 LACTIC ACID 7981980 SN[address] 03/12/2016 [address]ID [address] 0[address]87 [address] 03/12/2016 [address]OGLOBIN A1C 63394603 SNOMED CT 03/12/2016 BEDSIDE GLUCOSE 51951065 SNOMED CT 03/11/2016 COMPREHENSIVE METABOLIC PANEL 017502925 SNOMED CT 2015 CBC W/ AUTO DIFF (RFLX MAN DIFF IF IND) 0654126 SNOMED CT 03/12/[address] 03/12/2016 CULTURE BLOOD 91788140 SNOMED CT 03/11/2016 LACTIC ACID 5243233 SNOM[address] 03/11/2016 UA ROUTINE C&S IF IND 584847331 SNOMED CT 03/11/2016 TROPONIN-I ADV 933373068 SNOMED CT 03/11/[address] 03/11/[address] 03/11/2016 COMPREHENSIVE METABOLIC PANEL 057117402 SNOMED CT 2015 CBC W/ AUTO DIFF (RFLX MAN DIFF IF IND) 5053297 SNOMED CT 03/11/2016 ^CBC W/AUTO DIFF 3897258 SNOMED CT 03/12/2016 ^UA WITH MICRO 526598052 SNOMED CT 03/11/2016 ^CBC W/AUTO DIFF 7693560 SNOMED CT 03/11/2016 BAN AERO ECLIPSE TREATMENT 18536903 SNOMED CT 03/13/2016 BAN AERO ECLIPSE TREATMENT 89920434 SNOMED CT 03/12/2016 BAN AERO ECLIPSE TREATMENT 90473764 SNOMED CT 03/12/2016 BAN AERO ECLIPSE TREATMENT 06811849 SNOMED CT 03/12/2016 History of Immunizations Unknown or Not Available. Problems Problem Code Start Date Resolved Date Status Acute pancreatitis 717311483 03/11/2016 Active Results BEDSIDE GLUCOSE - Collect Date/Time: 03/13/2016 11:29 Test Name Code Test Result Test Units Test Ref Range GLUCOSE POCT 180 MG/DL L=70 H=100 BEDSIDE GLUCOSE - Collect Date/Time: 03/13/2016 09:57 Test Name Code Test Result Test Units Test Ref Range GLUCOSE POCT 221 MG/DL L=70 H=100 BEDSIDE GLUCOSE - Collect Date/Time: 03/13/2016 05:59 Test Name Code Test Result Test Units Test Ref Range GLUCOSE POCT 102 MG/DL L=70 H=100 BEDSIDE GLUCOSE - Collect Date/Time: 03/12/2016 20:55 Test Name Code Test Result Test Units Test Ref Range GLUCOSE POCT 234 MG/DL L=70 H=100 BEDSIDE GLUCOSE - Collect Date/Time: 03/12/2016 17:18 Test Name Code Test Result Test Units Test Ref Range GLUCOSE POCT 147 MG/DL L=70 H=100 BEDSIDE GLUCOSE - Collect Date/Time: 03/12/2016 12:28 Test Name Code Test Result Test Units Test Ref Range GLUCOSE POCT 151 MG/DL L=70 H=100 BEDSIDE GLUCOSE - Collect Date/Time: 03/12/2016 05:34 Test Name Code Test Result Test Units Test Ref Range GLUCOSE POCT 97 MG/DL L=70 H=100 BEDSIDE GLUCOSE - Collect Date/Time: 03/11/2016 22:45 Test Name Code Test Result Test Units Test Ref Range GLUCOSE POCT 154 MG/DL L=70 H=100 BEDSIDE GLUCOSE - Collect Date/Time: 03/11/2016 17:29 Test Name Code Test Result Test Units Test Ref Range GLUCOSE POCT 155 MG/DL L=70 H=100 COMPREHENSIVE METABOLIC PANEL - Collect Date/Time: 03/12/2016 06:10 Test Name Code Test Result Test Units Test Ref Range GLUCOSE 2345-7 87 MG/DL L=70 H=100 SODIUM 2951-2 143 MEQ/L L=135 H=148 POTASSIUM 2823-3 3.7 MEQ/L L=3.5 H=5.3 CHLORIDE 2075-0 114 MEQ/L L=96 H=110 CO2 2028-9 19 MEQ/L L=22 H=29 BUN 3094-0 13 MG/DL L=8 H=22 CREATININE 2160-0 0.7 MG/DL L=0.6 H=1.6 SGOT/AST 1920-8 18 IU/L L=10 H=40 SGPT/ALT 1742-6 41 IU/L L=8 H=54 ALK PHOS 6768-6 57 IU/L L=35 H=115 TOTAL PROTEIN 2885-2 4.9 G/DL L=5.5 H=8.5 ALBUMIN 1751-7 3.1 G/DL L=3.1 H=5.4 TOTAL BILI 1975-2 0.2 MG/DL L=0.0 H=1.5 CALCIUM 65598-7 7.2 MG/DL L=8.2 H=10.6 AGE 66 yrs GFR NonAA 84 GFR AA 102 eGFR >60 N/A eGFR AA* >60 N/A COMPREHENSIVE METABOLIC PANEL - Collect Date/Time: 03/11/2016 12:45 Test Name Code Test Result Test Units Test Ref Range GLUCOSE 2345-7 150 MG/DL L=70 H=100 SODIUM 2951-2 142 MEQ/L L=135 H=148 POTASSIUM 2823-3 4.3 MEQ/L L=3.5 H=5.3 CHLORIDE 2075-0 106 MEQ/L L=96 H=110 CO2 2028-9 23 MEQ/L L=22 H=29 BUN 3094-0 20 MG/DL L=8 H=22 CREATININE 2160-0 0.8 MG/DL L=0.6 H=1.6 SGOT/AST 1920-8 21 IU/L L=10 H=40 SGPT/ALT 1742-6 58 IU/L L=8 H=54 ALK PHOS 6768-6 93 IU/L L=35 H=115 TOTAL PROTEIN 2885-2 7.0 G/DL L=5.5 H=8.5 ALBUMIN 1751-7 4.4 G/DL L=3.1 H=5.4 TOTAL BILI 1975-2 0.3 MG/DL L=0.0 H=1.5 CALCIUM 16208-9 9.3 MG/DL L=8.2 H=10.6 AGE 66 yrs GFR NonAA 72 GFR AA 87 eGFR >60 N/A eGFR AA* >60 N/A LIPASE - Collect Date/Time: 03/12/2016 06:10 Test Name Code Test Result Test Units Test Ref Range LIPASE 3040-3 14 U/L L=8 H=78 LIPASE - Collect Date/Time: 03/11/2016 12:45 Test Name Code Test Result Test Units Test Ref Range LIPASE 3040-3 316 U/L L=8 H=78 LIPID PANEL - Collect Date/Time: 03/12/2016 06:10 Test Name Code Test Result Test Units Test Ref Range TRIGLYCERIDES 3043-7 81 MG/DL L=0 H=135 CHOLESTEROL 2093-3 125 MG/DL L=0 H=199 HDL 2085-9 31 MG/DL L=29 H=89 TOT CHOL/HDL 4.0 L=0.0 H=5.0 LDL (CALC) 2089-1 78 MG/DL L=0 H=129 CBC W/ AUTO DIFF (RFLX MAN DIFF IF IND) - Collect Date/Time: 03/12/2016 06:10 Test Name Code Test Result Test Units Test Ref Range WBC 32383-3 6.7 TH/CMM L=4.5 H=10.8 RBC 789-8 4.32 ML/CMM L=4.20 H=5.40 HGB 718-7 11.8 G/DL L=12.0 H=16.0 HCT 4544-3 38.6 % L=37.0 H=47.0 MCV 89 FL L=81 H=99 MCH 27.3 PG L=27.0 H=33.0 MCHC 30.6 G/DL L=31.0 H=36.0 RDW SD 47 FL L=36 H=50 RDW CV 14.2 % L=0.0 H=14.8 MPV 10.0 FL L=9.3 H=12.5 PLT 777-3 269 TH/CMM L=130 H=440 NRBC# 0.00 TH/CMM L=0.00 H=0.00 NRBC% 0.0 /100WBC L=0.0 H=2.0 %NEUT 75.1 % %LYMP 18.0 % %MONO 5.7 % %EOS 0.0 % %BASO 0.3 % #NEUT 5.04 TH/CMM L=2.10 H=8.20 #LYMP 1.21 TH/CMM L=0.90 H=5.20 #MONO 0.38 TH/CMM L=0.16 H=1.00 #EOS 0.00 TH/CMM L=0.00 H=0.80 #BASO 0.02 TH/CMM L=0.00 H=0.20 MANUAL DIFF NOT IND N/A CBC W/ AUTO DIFF (RFLX MAN DIFF IF IND) - Collect Date/Time: 03/11/2016 12:45 Test Name Code Test Result Test Units Test Ref Range WBC 29279-0 14.0 TH/CMM L=4.5 H=10.8 RBC 789-8 5.41 ML/CMM L=4.20 H=5.40 HGB 718-7 15.1 G/DL L=12.0 H=16.0 HCT 4544-3 47.7 % L=37.0 H=47.0 MCV 88 FL L=81 H=99 MCH 27.9 PG L=27.0 H=33.0 MCHC 31.7 G/DL L=31.0 H=36.0 RDW SD 45 FL L=36 H=50 RDW CV 14.0 % L=0.0 H=14.8 MPV 10.0 FL L=9.3 H=12.5 PLT 777-3 353 TH/CMM L=130 H=440 NRBC# 0.00 TH/CMM L=0.00 H=0.00 NRBC% 0.0 /100WBC L=0.0 H=2.0 %NEUT 75.0 % %LYMP 18.0 % %MONO 5.4 % %EOS 0.6 % %BASO 0.4 % #NEUT 10.47 TH/CMM L=2.10 H=8.20 #LYMP 2.52 TH/CMM L=0.90 H=5.20 #MONO 0.76 TH/CMM L=0.16 H=1.00 #EOS 0.09 TH/CMM L=0.00 H=0.80 #BASO 0.05 TH/CMM L=0.00 H=0.20 MANUAL DIFF NOT IND N/A PT/PTT - Collect Date/Time: 03/11/2016 12:45 Test Name Code Test Result Test Units Test Ref Range PROTIME 91072-4 9.9 SEC L=9.9 H=11.9 INR 0.9 PTT 3173-2 25.0 SEC L=22.2 H=37.2 UA ROUTINE C&S IF IND - Collect Date/Time: 03/11/2016 14:00 Test Name Code Test Result Test Units Test Ref Range COLOR YELLOW N/A NL: YELLOW APPEARANCE CLEAR N/A NL: CLEAR SPEC GRAV 1.010 N/A NL: 1.002 - 1.022 pH 5.5 N/A NL: 5 - 9 PROTEIN NEGATIVE N/A NL: NEGATIVE mg/dl GLUCOSE >=1000 N/A NL: NEGATIVE mg/dl KETONE NEGATIVE N/A NL: NEGATIVE mg/dl BILIRUBIN NEGATIVE N/A NL: NEGATIVE BLOOD NEGATIVE N/A NL: NEGATIVE NITRITE NEGATIVE N/A NL: NEGATIVE LEUK SCREEN NEGATIVE N/A NL: NEGATIVE MICRO INDICATED? SEE BELOW N/A WBC/HPF RARE N/A NL: NEGATIVE RBC/HPF NEGATIVE N/A NL: NEGATIVE CASTS/LPF NEGATIVE N/A NL: NEGATIVE CRYSTALS NEGATIVE N/A NL: NEGATIVE MUCOUS THRDS NEGATIVE N/A NL: NEGATIVE BACTERIA NEGATIVE N/A NL: NEGATIVE EPITH CELLS FEW SQUAMOUS N/A NL: NEGATIVE TRICHOMONAS NEGATIVE N/A NL: NEGATIVE YEAST NEGATIVE N/A NL: NEGATIVE CULT SET UP? NO N/A HEMOGLOBIN A1C - Collect Date/Time: 03/12/2016 06:10 Test Name Code Test Result Test Units Test Ref Range HGB A1C 61645-2 6.9 % L=4.0 H=6.4 Est Avg Glucose 93886-5 151.3 mg/dL TROPONIN-I ADV - Collect Date/Time: 03/11/2016 12:45 Test Name Code Test Result Test Units [place] [address]-2 <0.04 ng/mL L=0.04 H= 0.40 AMYLASE - Collect Date/Time: 03/11/2016 12:45 Test Name Code Test Result Test Units Test Ref Range AMYLASE 1798-8 137 IU/L L=25 H=125 LACTIC ACID - Collect Date/Time: 03/12/2016 06:10 Test Name Code Test Result Test Units Test Ref Range LACTIC ACID 2524-7 0.9 mmol/L L=0.5 H=1.6 LACTIC ACID - Collect Date/Time: 03/11/2016 12:45 Test Name Code Test Result Test Units Test Ref Range LACTIC ACID 2524-7 2.1 mmol/L L=0.5 H=1.6 Active Medications Medications Administered During Visit Medication Dose Units Frequency Route Date/ Time of Last Dose NS 1000 ML IV [PREDEFINED] (7983) CONT IV 03/11/2016 17:00 ONDANSETRON [ZOFRAN] INJ 4 MG/2 ML VIAL 4 MG PRN Q 4 HRS SIVP 03/11/2016 18:45 HYDROmorphone [DILAUDID] INJ: 2MG/ML 1 MG PRN Q 2 HRS IVP 03/11/2016 18:36 NS 1000 ML IV [PREDEFINED] (7983) CONT IV 03/12/2016 05:26 PROMETHAZINE [PHENERGAN] INJ 25 MG/ML 25 MG PRN Q 4 HRS IM 03/13/2016 03:46 FENTANYL AMP :50 mcg/ml 2ML AMP 100 MCG PRN Q 4 HRS IVP 03/13/2016 02:25 INSULIN [LEVEMIR] 100UNITS/ML 10ML VIAL 15 UNIT HS SQ 03/11/2016 21:28 INSULIN [NOVOLOG] 100UNITS/ML (SQ) 10ML 6 Unit(s) PRN SUBCUTANEOUS 03/13/2016 10:01 PANTOPRAZOLE [PROTONIX] INJ VIAL: 40 MG 40 MG Q12H SIVP 03/13/2016 08:04 LOSARTAN [COZAAR] TABLET: 25 MG 25 MG DAILY PO 03/13/2016 08:04 ASPIRIN [CHEWABLE] TAB : 81MG 81 MG DAILY PO 03/13/2016 08:04 NS 1000 ML IV [PREDEFINED] (7983) CONT IV 03/12/2016 09:51 INSULIN [LEVEMIR] 100UNITS/ML 10ML VIAL 30 UNIT HS SQ 03/12/2016 21:07 DUONEB [IPRATROPIUM/ALBUTEROL] 0.5/3 MG 1 UD QID (RT ONLY ) INHALE 03/13/2016 09:23 TraMADOL [ULTRAM] TABLET : 50 MG 50 MG PRN PO 03/12/2016 21:31 Encounters Encounter Diagnosis Diagnosis Code Start Date Acute pancreatitis, unspecified K859 03/11/2016 Social History Smoking Status Code Start Date End Date Former smoker [id number] Patient Decision Aids Unknown or Not Available. Discharge Instructions You were admitted to [facility] on 03/11/2016 16:19 with a principal diagnosis of Acute pancreatitis, unspecified You had the following tests done: AMYLASE BEDSIDE GLUCOSE BEDSIDE GLUCOSE BEDSIDE GLUCOSE BEDSIDE GLUCOSE BEDSIDE GLUCOSE BEDSIDE GLUCOSE BEDSIDE GLUCOSE BEDSIDE GLUCOSE BEDSIDE GLUCOSE CBC W/ AUTO DIFF (RFLX MAN DIFF IF IND) CBC W/ AUTO DIFF (RFLX MAN DIFF IF IND) COMPREHENSIVE METABOLIC PANEL COMPREHENSIVE METABOLIC PANEL HEMOGLOBIN A1C LACTIC ACID LACTIC ACID LIPASE LIPASE LIPID PANEL PT/PTT TROPONIN-I ADV UA ROUTINE C&S IF IND You were discharged from [facility] on 03/13/2016 11:50 Should you have any questions prior to discharge, please contact a member of your healthcare team. If you have left the hospital and have any questions, please contact your primary care physician. HOME DIET: 1800 KCAL DIABETIC DIET CONDITION AT DISMISSAL Stable. HOME MEDICATION INSTRUCTIONS: Take only the medications listed above.. HOME MEDS RETURNED TO PATIENT: N/A. ACTIVITY INSTRUCTIONS(list limitations): Activity as Tolerated. SCRIPTS WRITTEN BY DOCTOR GIVEN TO PATIENT? Yes, for what?. METFORMIN 500 MG ORAL TABLET BY MOUTH DAILY X7 DAYS, THEN TAKE TWICE A DAY. IMMUNIZATIONS GIVEN DURING HOSPITALIZATION: NONE, PT IS CURRENT FOLLOW UP CARE - SEE YOUR PHYSICIAN: DR. GRANT MARCH 20 AT 9:00 AM PRIMARY CARE PHYSICIAN OR PRACTITIONER: Rehan Grant MD, . CONTACT PHYSICIAN IF YOU EXPERIENCE ANY: INTRACTABLE ABDOMINAL PAIN, NAUSEA AND VOMITING PERSONAL ITEMS RETURNED: Yes. PATIENT PORTAL/OTHER INSTRUCTIONS: Assisted on to Patient Portal. Bring these instructions to next visit? Yes. INSTRUCTIONS GIVEN AND DISCHARGE TO: Patient. Spouse/SO. VOICES UNDERSTANDING OF INSTRUCTIONS: Yes. INSTRUCTIONS GIVEN BY (TYPE IN NAME AND DATE) SHANTAL FORD SUMMARY OF ABNORMAL LABS: LOCATED ON CCD - SENT TO DR. GRANT CHIEF COMPLAINT: PATIENT PRESENTS TO ER WITH C/O UPPER/ EPIGASTRIC ABDOMINAL PAIN AND N/V FOR PAST COUPLE DAYS. Chief Complaint and Reason For Visit Chief Complaint Date of Onset PANCREATITIS Function Status Unknown or Not Available. Plan of Care Unknown or Not Available. Referral/Transition of Care Unknown or Not Available.
--- OUTSIDE RECORDS SUMMARY | 2018-10-05 11:13 | XMS REPORT ---
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 Name Role Phone Hemant Dallas PCP Hemant Dallas PreferredProvider Allergies and Adverse Reactions Name Reaction Notes codeine sulfate nausea/abd pain Epinephrine fast heart beat Decongestant nausea Januvia made her sick Actos made her sick Victoza pancreatitis lisinopril Omeprazole Myrbetriq pantoprazole Plan of Treatment Planned Activity Comments Planned Date Planned Time Plan/Goal HEMOGLOBIN A1C 02/03/2017 12:00 AM HEMOGLOBIN A1C 10/06/2017 12:00 AM Urine microalbumin measurement 10/06/2017 12:00 AM URINALYSIS W/MICRO C&S IF IND 11/23/2017 12:00 AM cystocele 07/09/2016 2:00 PM cystocele Urinary incontinence, pelvic organ prolapse 08/31/2017 2:00 PM Medications Active Name Start Date Estimated Completion Date SIG Comments Tylenol Extra Strength 500 mg oral tablet take 1 tablet (500 mg) by oral route every 4 hours as needed triamcinolone acetonide 0.1 % topical cream apply to affected area(s) by topical route As needed multivitamin oral tablet take 1 tablet by oral route daily Qualaquin 324 mg oral capsule take 1 capsule by oral route once daily Zyrtec 10 mg oral tablet 10/08/2016 take 1 tablet (10 mg) by oral route once daily Premarin 0.625 mg/gram vaginal cream 10/21/2017 insert 0.5 gram by vaginal daily for 3 weeks, then only 3 times per week thereafter (MWF) magnesium 400 mg oral take one capsule by oral route twice daily Aspir-81 81 mg oral tablet,delayed release (DR/EC) 02/10/2018 02/05/2019 take 1 tablet (81 mg) by oral route once daily for 90 days pravastatin 20 mg oral tablet 02/10/2018 take 1 tablet (20 mg) by oral route once daily for 90 days losartan 100 mg oral tablet 03/04/2018 TAKE ONE TABLET BY MOUTH ONCE DAILY vitamin B complex oral tablet take 1 tablet by oral route daily metoprolol succinate 25 mg oral tablet extended release 24 hr take 1 tablet (25 mg) by oral route once daily Lantus Solostar U-100 Insulin 100 unit/mL (3 mL) subcutaneous insulin pen 07/2018 inject by subcutaneous route 30 units twice daily Dispense 3 month supply: 4 Boxes Novolog Flexpen U-100 Insulin 100 unit/mL subcutaneous insulin pen 07/13/2018 07/08/2019 inject 20 units by subcutaneous route with each meal Total of 60 units per day Dispense 3 months supply 4 Boxes cimetidine 800 mg oral tablet 07/13/2018 07/08/2019 take 1 tablet (800 mg) by oral route 2 times per day for 90 days Name Start Date Expiration Date SIG Comments pravastatin 20 mg oral tablet take 1 tablet (20 mg) by oral route once daily Novolog 100 unit/mL subcutaneous solution inject by subcutaneous route per prescriber's instructions. Insulin dosing requires individualization. Lantus 100 unit/mL subcutaneous solution Bactrim DS 800-160 mg oral tablet 06/13/2016 06/20/2016 take 1 tablet by oral route every 12 hours for 7 days guanfacine 1 mg oral tablet take 1 tablet (1 mg) by oral route once daily at bedtime Qualaquin 324 mg oral capsule take 1 capsules (324 mg) by oral route once daily Invokamet 150-1,000 mg oral tablet take 1 tablet by oral route 2 times per day with meals metformin 500 mg oral tablet Calcium Citrate + D 315-200 mg-unit oral tablet 08/12/2016 02/08/2017 take 1 tablet by oral route 2 times a day for 30 days nystatin 100,000 unit/gram topical powder 02/03/2017 02/17/2017 apply to the affected area(s) by topical route 2 times per day for 14 days losartan 100 mg oral tablet 02/08/2017 08/07/2017 take 1 tablet (100 mg) by oral route once daily for 90 days Flonase Allergy Relief 50 mcg/actuation nasal spray,suspension 07/20/2017 spray 1 - 2 sprays (50 - 100 mcg) in each nostril by intranasal route once daily aspirin 81 mg oral tablet,delayed release (DR/EC) 09/27/2017 09/27/2017 TAKE ONE TABLET BY MOUTH ONCE DAILY omeprazole 20 mg oral capsule,delayed release(DR/EC) 09/30/2017 09/30/2017 take 1 capsule (20 mg) by oral route daily before a meal Keflex 500 mg oral capsule 11/30/2017 12/03/2017 take 1 capsule (500 mg) by oral route every 12 hours for 3 days Diflucan 200 mg oral tablet 11/30/2017 12/01/2017 take 1 tablet (200 mg) by oral route once daily for 1 day glipizide 10 mg oral tablet 03/01/2018 05/30/2018 take 1 tablet (10 mg) by oral route 2 times per day before meals for 90 days sulfamethoxazole-trimethoprim 800-160 mg oral tablet 07/22/2018 07/29/2018 take 1 tablet by oral route every 12 hours for 7 days Discontinued Name Start Date Discontinued Date SIG Comments Novolog 100 unit/mL subcutaneous solution 09/09/2016 inject by subcutaneous route 8 units at breakfast, 10 and 8 at supper, and sliding scale PRN Lantus 100 unit/mL subcutaneous solution 08/13/2016 inject by subcutaneous route 50 units at bedtime Vitamin D3 5,000 unit oral tablet 06/14/2017 take 1 tablet by oral route 2 times a day Vitamins B Complex oral tablet 06/14/2017 take 1 tablet by oral route daily vitamin A 8,000 unit oral capsule 06/14/2017 take 1 capsule (8,000 unit) by oral route once daily metformin 500 mg oral tablet 10/06/2016 take 1 tablet (500 mg) by oral route 2 times per day with morning and evening meals metformin 500 mg oral tablet extended release 24 hr 10/06/2016 11/03/2016 take 1 tablet (500 mg) by oral route once daily with the morning and evening meals. Pt c/o pain, and flu-like symptoms. ProAir HFA 90 mcg/actuation inhalation HFA aerosol inhaler 10/08/20162016 inhale 1 puff (90 mcg) by inhalation route every 4-6 hours as needed Levemir FlexTouch 100 unit/mL (3 mL) subcutaneous insulin pen 11/24/20162017 inject 30 units in morning and 30 units in evening by subcutaneous route per prescribers instructions Uses 5400 units in 3 months equals 18 pens in a 3 month supply Aspir-81 81 mg oral tablet,delayed release (DR/EC) 03/24/2017 take 1 tablet (81 mg) by oral route once daily for 90 days ondansetron 4 mg oral tablet,disintegrating 07/07/2017 04/18/2018 dissolve 1 tablet by oral route As needed for 30 days glipizide 10 mg oral tablet 09/02/2017 01/11/2018 TAKE ONE TABLET BY MOUTH TWICE DAILY BEFORE MEAL(S) Already taking Novolog and Lantus. metoclopramide HCl 10 mg oral tablet 01/11/2018 take 1 tablet (10 mg) by oral route 4 times per day 30 minutes before meals and at bedtime Vitamin D3 400 unit oral capsule 04/13/2018 take 1 capsule by oral route 2 times a day stopped taking because her calcium has vitamen D3 pantoprazole 40 mg oral tablet,delayed release (DR/EC) 03/14/2018 04/13/2018 take 1 tablet (40 mg) by oral route once daily for 30 days patient stopped because it was causing her cramps Vitamin B-12 500 mcg oral tablet 07/13/2018 take 1 tablet by oral route daily ranitidine HCl 75 mg oral tablet 04/13/2018 07/13/2018 take 1 tablet (75 mg) by oral route 2 times per day with glass of water for 30 days fluconazole 100 mg oral tablet 07/22/2018 08/04/2018 take 1 tablet by oral route every other day Problem List Description Status Onset Hypertension Active Actinic keratosis Active 07/22/2016 Actinic keratosis Active 07/23/2016 Nevus Active 07/23/2016 Actinic keratosis Active 07/23/2016 Nasal lesion Active 09/02/2016 Palpitations Active 10/06/2017 Controlled diabetes mellitus with long-term current use of insulin Active Vital Signs Date Time BP-Sys(mm[Hg] BP-Ashley(mm[Hg]) HR(bpm) RR(rpm) Temp WT HT HC BMI BSA BMI Percentile O2 Sat(%) 08/04/2018 9:29:00 AM 128 mmHg 70 mmHg 73 bpm 20 rpm 99.3 F 179 lbs 61 in 33.8214 kg/m 1.8694 m 96 % 07/22/2018 8:17:00 AM 154 mmHg 80 mmHg 72 bpm 22 rpm 99.7 F 194 lbs 61 in 36.66 kg/m2 1.95 m2 97 % 07/13/2018 8:07:00 AM 142 mmHg 70 mmHg 60 bpm 20 rpm 99 F 189 lbs 61 in 35.7109 kg/m 1.9209 m 96 % 04/18/2018 3:39:00 PM 124 mmHg 86 mmHg 62 bpm 18 rpm 98.1 F 192.25 lbs 61 in 36.32 kg/m2 1.94 m2 95 % 04/13/2018 8:42:00 AM 120 mmHg 80 mmHg 73 bpm 18 rpm 98.1 F 190.5 lbs 61 in 35.9943 kg/m 1.9285 m 95 % 03/08/2018 8:30:00 AM 140 mmHg 85 mmHg 85 bpm 18 rpm 99.1 F 187.25 lbs 61 in 35.38 kg/m2 1.91 m2 96 % 02/25/2018 10:41:00 AM 135 mmHg 85 mmHg 79 bpm 18 rpm 97.9 F 188.375 lbs 61 in 35.5928 kg/m 1.9177 m 98 % 01/26/2018 1:29:00 PM 148 mmHg 60 mmHg 83 bpm 98.1 F 190 lbs 61 in 35.90 kg/m2 1.93 m2 01/12/2018 9:30:00 AM 134 mmHg 72 mmHg 68 bpm 19 rpm 98.2 F 184.5 lbs 61 in 34.8606 kg/m 1.8979 m 95 % 01/11/2018 8:01:00 AM 130 mmHg 78 mmHg 70 bpm 20 rpm 99.1 F 187 lbs 61 in 35.33 kg/m2 1.91 m2 96 % 12/20/2017 10:59:00 AM 142 mmHg 70 mmHg 75 bpm 20 rpm 98.6 F 184 lbs 61 in 34.7661 kg/m 1.8953 m 97 % 12/07/2017 2:02:00 PM 132 mmHg 82 mmHg 81 bpm 16 rpm 98.6 F 182 lbs 61 in 34.39 kg/m2 1.88 m2 12/02/2017 12:51:00 PM 128 mmHg 70 mmHg 81 bpm 14 rpm 98.2 F 188 lbs 95 % 11/23/2017 2:15:00 PM 144 mmHg 80 mmHg 73 bpm 20 rpm 98.4 F 188 lbs 61 in 35.52 kg/m2 1.92 m2 94 % 11/11/2017 9:00:00 AM 122 mmHg 78 mmHg 76 bpm 18 rpm 98.2 F 189.375 lbs 61 in 35.7817 kg/m 1.9228 m 96 % 10/21/2017 10:41:00 AM 140 mmHg 82 mmHg 75 bpm 18 rpm 97.4 F 193.375 lbs 61 in 36.54 kg/m2 1.94 m2 96 % 10/06/2017 10:04:00 AM 144 mmHg 88 mmHg 75 bpm 18 rpm 96.7 F 196.5 lbs 62 in 35.94 kg/m 1.9746 m 96 % 07/07/2017 10:06:00 AM 115 mmHg 78 mmHg 78 bpm 18 rpm 97.9 F 193 lbs 62 in 35.30 kg/m2 1.96 m2 96 % 06/21/2017 2:08:00 PM 145 mmHg 72 mmHg 78 bpm 98 F 193 lbs 62 in 35.2998 kg/m 1.9569 m 06/14/2017 2:51:00 PM 161 mmHg 88 mmHg 101 bpm 97.8 F 191.25 lbs 62 in 34.98 kg/m2 1.95 m2 05/05/2017 8:45:00 AM 143 mmHg 88 mmHg 72 bpm 18 rpm 97.6 F 192 lbs 62 in 35.1169 kg/m 1.9518 m 97 % 04/13/2017 8:11:00 AM 150 mmHg 88 mmHg 68 bpm 18 rpm 97.7 F 187.125 lbs 62 in 34.23 kg/m2 1.93 m2 96 % 02/03/2017 8:12:00 AM 156 mmHg 80 mmHg 74 bpm 18 rpm 98 F 187 lbs 62 in 34.2024 kg/m 1.9263 m 97 % 01/13/2017 10:33:00 AM 126 mmHg 80 mmHg 69 bpm 18 rpm 98 F 187.125 lbs 62 in 34.23 kg/m2 1.93 m2 96 % 12/02/2016 1:59:00 PM 119 mmHg 59 mmHg 72 bpm 18 rpm 98 F 185 lbs 62 in 33.8366 kg/m 1.9159 m 95 % 11/03/2016 1:58:00 PM 146 mmHg 72 mmHg 78 bpm 17 rpm 97.6 F 186.2 lbs 62 in 34.06 kg/m2 1.92 m2 97 % 10/08/2016 1:48:00 PM 132 mmHg 86 mmHg 96 bpm 18 rpm 98.9 F 183.5 lbs 62 in 33.5622 kg/m 1.9082 m 93 % 09/15/2016 3:20:00 PM 138 mmHg 80 mmHg 78 bpm 18 rpm 97.7 F 186 lbs 62 in 34.02 kg/m2 1.92 m2 96 % 09/15/2016 11:35:00 AM 132 mmHg 89 mmHg 77 bpm 20 rpm 97.2 F 209 lbs 62 in 38.2262 kg/m 2.0364 m 08/31/2016 2:49:00 PM 132 mmHg 89 mmHg 77 bpm 20 rpm 97.2 F 209 lbs 62 in 38.23 kg/m2 2.04 m2 08/28/2016 9:36:00 AM 132 mmHg 89 mmHg 77 bpm 97.2 F 209.25 lbs 62 in 38.2719 kg/m 2.0376 m 95 % 08/26/2016 10:43:00 AM 143 mmHg 65 mmHg 80 bpm 97.9 F 187 lbs 62 in 34.20 kg/m2 1.93 m2 08/20/2016 10:06:00 AM 172 mmHg 70 mmHg 79 bpm 98.6 F 182 lbs 62 in 33.2879 kg/m 1.9003 m 08/19/2016 12:56:00 PM 157 mmHg 81 mmHg 79 bpm 20 rpm 97.6 F 186 lbs 62 in 34.02 kg/m2 1.92 m2 08/13/2016 1:56:00 PM 151 mmHg 82 mmHg 81 bpm 97.8 F 187.375 lbs 61 in 35.4038 kg/m 1.9126 m 08/04/2016 9:02:00 AM 132 mmHg 88 mmHg 74 bpm 19 rpm 97.4 F 186 lbs 62 in 34.02 kg/m2 1.92 m2 98 % 08/04/2016 8:32:00 AM 156 mmHg 84 mmHg 77 bpm 20 rpm 97.4 F 186.5 lbs 62 in 34.1109 kg/m 1.9237 m 07/22/2016 3:09:00 PM 141 mmHg 74 mmHg 73 bpm 20 rpm 97.2 F 186 lbs 62 in 34.02 kg/m2 1.92 m2 07/15/2016 5:50:00 PM 136 mmHg 74 mmHg 83 bpm 18 rpm 98.4 F 186.25 lbs 62 in 34.0652 kg/m 1.9224 m 93 % 06/13/2016 10:39:00 AM 132 mmHg 84 mmHg 76 bpm 16 rpm 99 F 188 lbs 62 in 34.39 kg/m2 1.93 m2 94 % Social History Name Description Comments Lives with spouse Tobacco Former smoker Alcohol Use - Occasional cooks with red wine History of Procedures Date Ordered Description Order Status 07/22/2016 12:00 AM DESTRUCT PREMALG LESION Reviewed 08/04/2016 12:00 AM MAMMOGRAPHY SCREENING, DIGITAL Reviewed 08/04/2016 12:00 AM DXA BONE DENSITY AXIAL Reviewed 08/04/2016 12:00 AM GLYCOSYLATED HEMOGLOBIN TEST Reviewed 08/04/2016 12:00 AM MICROALBUMIN QUANTITATIVE Reviewed 08/04/2016 12:00 AM COMPLETE CBC W/AUTO DIFF WBC Reviewed 08/04/2016 12:00 AM COMPREHEN METABOLIC PANEL Reviewed 08/04/2016 12:00 AM ASSAY OF FREE THYROXINE Reviewed 08/04/2016 12:00 AM ASSAY THYROID STIM HORMONE Reviewed 08/04/2016 12:00 AM URNLS DIP STICK/TABLET RGNT AUTO W/O MICROSCOPY Reviewed 08/19/2016 12:00 AM DESTRUCT PREMALG LESION Reviewed 08/20/2016 12:00 AM INSERT PESSARY/OTHER DEVICE Reviewed 08/20/2016 12:00 AM Pessary, non rubber, any type Reviewed 08/28/2016 12:00 AM Consult/Referral Reviewed 11/03/2016 12:00 AM LIPID PANEL Reviewed 11/03/2016 12:00 AM GLYCOSYLATED HEMOGLOBIN TEST Reviewed 04/13/2017 12:00 AM RADEX SPINE LUMBOSACRAL 2/3 VIEWS Reviewed 04/13/2017 12:00 AM COMPREHEN METABOLIC PANEL Reviewed 04/13/2017 12:00 AM GLYCOSYLATED HEMOGLOBIN TEST Reviewed 06/21/2017 12:00 AM URNLS DIP STICK/TABLET RGNT AUTO W/O MICROSCOPY Reviewed 07/07/2017 12:00 AM GLYCOSYLATED HEMOGLOBIN TEST Reviewed 08/05/2017 12:00 AM Consult/Referral Reviewed 10/04/2017 12:00 AM GLYCOSYLATED HEMOGLOBIN TEST Returned 10/04/2017 12:00 AM LIPID PANEL Returned 10/04/2017 12:00 AM COMPREHEN METABOLIC PANEL Returned 10/04/2017 12:00 AM COMPLETE CBC W/AUTO DIFF WBC Returned 10/06/2017 12:00 AM ECG MONIT/REPRT UP TO 48 HRS Returned 10/06/2017 12:00 AM MYOCARDIAL SPECT MULTIPLE STUDIES Returned 10/21/2017 12:00 AM URINALYSIS AUTO W/SCOPE Reviewed 11/04/2017 12:00 AM CYSTOSCOPY Reviewed 11/11/2017 12:00 AM Mammogram, screening, bilateral Returned 11/16/2017 12:00 AM COMPLETE CBC W/AUTO DIFF WBC Reviewed 11/16/2017 12:00 AM METABOLIC PANEL TOTAL CA Reviewed 11/16/2017 12:00 AM URINALYSIS AUTO W/SCOPE Reviewed 11/16/2017 12:00 AM ELECTROCARDIOGRAM TRACING Reviewed 12/02/2017 1:20 PM US URINE CAPACITY MEASURE Reviewed 01/11/2018 12:00 AM COMPREHEN METABOLIC PANEL Reviewed 01/11/2018 12:00 AM GLYCOSYLATED HEMOGLOBIN TEST Reviewed 01/11/2018 12:00 AM MICROALBUMIN QUANTITATIVE Reviewed 01/11/2018 12:00 AM VITAMIN B-12 Reviewed 01/11/2018 12:00 AM ASSAY THYROID STIM HORMONE Reviewed 01/18/2018 3:48 PM US URINE CAPACITY MEASURE Reviewed 12/02/2017 12:00 AM X-RAY EXAM SERIES ABDOMEN Reviewed 01/26/2018 12:00 AM URINE BACTERIA CULTURE Reviewed 03/08/2018 12:00 AM US BREAST UNI REAL TIME WITH IMAGE COMPLETE Reviewed 04/11/2018 12:00 AM COMPLETE CBC W/AUTO DIFF WBC Reviewed 04/11/2018 12:00 AM COMPREHEN METABOLIC PANEL Reviewed 04/11/2018 12:00 AM ALBUMIN URINE MICROALBUMIN QUANTIATIVE Reviewed 04/11/2018 12:00 AM LIPID PANEL Reviewed 04/13/2018 12:00 AM GLYCOSYLATED HEMOGLOBIN TEST Reviewed 07/08/2018 12:00 AM COMPREHEN METABOLIC PANEL Reviewed 07/08/2018 12:00 AM ALBUMIN URINE MICROALBUMIN QUANTIATIVE Reviewed 07/08/2018 12:00 AM LIPID PANEL Reviewed 07/08/2018 12:00 AM VITAMIN B-12 Reviewed 07/08/2018 12:00 AM GLYCOSYLATED HEMOGLOBIN TEST Reviewed Results Summary Date and Description Results 08/04/2016 12:10 PM HGB A1C 6.40 %Est Avg Glucose 137.0 mg/dLWBC 6.6 RBC 4.57 HGB 12.80 g/dLHCT 40.90 %MCV 90.0 fLMCH 28.0 pgMCHC 31.30 g/dLRDW SD 47 RDW CV 14.40 %MPV 9.80 fLPLT 306 NRBC# 0.00 NRBC% 0.0 %NEUT 54.70 %%LYMP 36.80 %%MONO 6.10 %%EOS 1.40 %%BASO 0.50 %#NEUT 3.61 #LYMP 2.42 #MONO 0.40 #EOS 0.09 #BASO 0.03 MANUAL DIFF NOT IND COLOR YELLOW APPEARANCE CLEAR SPEC GRAV 1.015 pH 6.0 PROTEIN NEGATIVE GLUCOSE NEGATIVE mg/dLKETONE NEGATIVE BILIRUBIN NEGATIVE BLOOD NEGATIVE NITRITE NEGATIVE LEUK SCREEN NEGATIVE MICRO INDICATED? NOT INDICATED MICROALBUMIN UR <0.5 ug/mLGLUCOSE 102.0 mg/dLSODIUM 145.0 mmol/LPOTASSIUM 3.90 mmol/LCHLORIDE 108.0 mmol/LCO2 27.0 mmol/LBUN 15.0 mg/dLCREATININE 0.70 mg/ dLSGOT/AST 21.0 IU/LSGPT/ALT 44.0 IU/LALK PHOS 85.0 IU/LTOTAL PROTEIN 6.70 g/ dLALBUMIN 4.0 g/dLTOTAL BILI 0.40 mg/dLCALCIUM 9.40 mg/dLAGE 66 GFR NonAA 84 GFR AA 102 eGFR >60 mL/min/1.73meGFR AA* >60 FREE T4 1.07 TSH 0.50 uIU/mL 11/03/2016 3:45 PM TRIGLYCERIDES 166.0 mg/dLCHOLESTEROL 184.0 mg/dLHDL 42.0 mg/ dLTOT CHOL/HDL 4.4 LDL (CALC) 109.0 mg/dLHGB A1C 7.30 %Est Avg Glucose 162.8 mg/ dL 04/13/2017 9:36 AM HGB A1C 6.70 %Est Avg Glucose 145.6 mg/dLGLUCOSE 114.0 mg/ dLSODIUM 143.0 mmol/LPOTASSIUM 4.60 mmol/LCHLORIDE 107.0 mmol/LCO2 30.0 mmol/ LBUN 15.0 mg/dLCREATININE 0.70 mg/dLSGOT/AST 26.0 IU/LSGPT/ALT 56.0 IU/LALK PHOS 91.0 IU/LTOTAL PROTEIN 6.30 g/dLALBUMIN 4.0 g/dLTOTAL BILI 0.30 mg/ dLCALCIUM 9.20 mg/dLAGE 67 GFR NonAA 83 GFR AA 101 eGFR >60 mL/min/1.73meGFR AA* >60 06/21/2017 4:58 PM COLOR YELLOW APPEARANCE CLEAR SPEC GRAV 1.010 pH 5.5 PROTEIN NEGATIVE GLUCOSE NEGATIVE mg/dLKETONE NEGATIVE BILIRUBIN NEGATIVE BLOOD NEGATIVE NITRITE NEGATIVE LEUK SCREEN NEGATIVE MICRO INDICATED? NOT INDICATED 07/07/2017 11:12 AM HGB A1C 6.50 %Est Avg Glucose 139.9 mg/dL 10/21/2017 11:16 AM COLOR YELLOW APPEARANCE CLEAR SPEC GRAV <=1.005 pH 6.5 PROTEIN NEGATIVE GLUCOSE NEGATIVE mg/dLKETONE NEGATIVE BILIRUBIN NEGATIVE BLOOD NEGATIVE NITRITE NEGATIVE LEUK SCREEN NEGATIVE WBC/HPF NEGATIVE RBC/HPF 0-5 CASTS/LPF NEGATIVE /LPFCRYSTALS NEGATIVE MUCOUS THRDS NEGATIVE BACTERIA NEGATIVE EPITH CELLS 1+ SQUAMOUS /HPFTRICHOMONAS NEGATIVE YEAST NEGATIVE CULT SET UP? NO 11/16/2017 1:45 PM COLOR YELLOW APPEARANCE CLEAR SPEC GRAV 1.020 pH 5.5 PROTEIN NEGATIVE GLUCOSE NEGATIVE mg/dLKETONE NEGATIVE BILIRUBIN NEGATIVE BLOOD NEGATIVE NITRITE NEGATIVE LEUK SCREEN NEGATIVE WBC/HPF NEGATIVE RBC/HPF RARE CASTS/LPF NEGATIVE /LPFCRYSTALS NEGATIVE MUCOUS THRDS NEGATIVE BACTERIA FEW EPITH CELLS FEW SQUAMOUS /HPFTRICHOMONAS NEGATIVE YEAST NEGATIVE CULT SET UP? NO WBC 6.8 RBC 4.60 HGB 12.90 g/dLHCT 40.50 %MCV 88.0 fLMCH 28.0 pgMCHC 31.90 g/ dLRDW SD 46 RDW CV 14.30 %MPV 9.80 fLPLT 348 NRBC# 0.00 NRBC% 0.0 %NEUT 63.60 %% LYMP 27.90 %%MONO 6.80 %%EOS 1.0 %%BASO 0.40 %#NEUT 4.30 #LYMP 1.89 #MONO 0.46 # EOS 0.07 #BASO 0.03 MANUAL DIFF NOT IND GLUCOSE 116.0 mg/dLSODIUM 145.0 mmol/ LPOTASSIUM 3.80 mmol/LCHLORIDE 106.0 mmol/LCO2 28.0 mmol/LBUN 15.0 mg/ dLCREATININE 0.80 mg/dLCALCIUM 10.0 mg/dLAGE 67 GFR NonAA 72 GFR AA 87 eGFR >60 mL/min/1.73meGFR AA* >60 12/02/2017 1:20 PM Residual Urine 109.0 mL 01/11/2018 9:32 AM GLUCOSE 109.0 mg/dLSODIUM 143.0 mmol/LPOTASSIUM 4.20 mmol/ LCHLORIDE 108.0 mmol/LCO2 26.0 mmol/LBUN 12.0 mg/dLCREATININE 0.70 mg/dLSGOT/ AST 17.0 IU/LSGPT/ALT 24.0 IU/LALK PHOS 85.0 IU/LTOTAL PROTEIN 6.40 g/dLALBUMIN 3.90 g/dLTOTAL BILI 0.20 mg/dLCALCIUM 9.0 mg/dLAGE 67 GFR NonAA 83 GFR AA 101 eGFR 83 eGFR AA* >60 MICROALBUMIN UR <0.5 ug/mLTSH 0.730 uIU/mLVITAMIN B12 572.0 pg/mLHGB A1C 6.0 %Est Avg Glucose 125.5 mg/dL 01/18/2018 3:48 PM Residual Urine 65.0 mL 04/12/2018 8:15 AM WBC 7.4 RBC 4.69 HGB 12.3 HCT 40.5 MCV 86 MCH 26.2 MCHC 30.4 RDW SD 49 RDW CV 15.8 MPV 10.4 PLT 330 NRBC# 0.00 NRBC% 0.0 %NEUT 57.3 % LYMP 34.3 %MONO 6.0 %EOS 1.5 %BASO 0.4 #NEUT 4.23 #LYMP 2.53 #MONO 0.44 #EOS 0.11 #BASO 0.03 MANUAL DIFF NOT IND TRIGLYCERIDES 109 CHOLESTEROL 145 HDL 45 TOT CHOL/HDL 3.2 LDL (CALC) 78 GLUCOSE 170 SODIUM 143 POTASSIUM 4.1 CHLORIDE 108 CO2 28 BUN 16 CREATININE 0.7 SGOT/AST 15 SGPT/ALT 35 ALK PHOS 94 TOTAL PROTEIN 6.2 ALBUMIN 3.6 TOTAL BILI 0.2 CALCIUM 9.1 AGE 68 GFR NonAA 83 GFR AA 101 eGFR 83 eGFR AA* >60 MICROALBUMIN UR <0.5 HGB A1C 7.0 Est Avg Glucose 154.2 07/11/2018 9:10 AM WBC 6.8 RBC 4.35 HGB 12.0 HCT 38.6 MCV 89 MCH 27.6 MCHC 31.1 RDW SD 52 RDW CV 15.9 MPV 10.3 PLT 282 NRBC# 0.00 NRBC% 0.0 %NEUT 59.9 % LYMP 30.1 %MONO 6.9 %EOS 2.4 %BASO 0.4 #NEUT 4.05 #LYMP 2.04 #MONO 0.47 #EOS 0.16 #BASO 0.03 MANUAL DIFF NOT IND TRIGLYCERIDES 91 CHOLESTEROL 142 HDL 44 TOT CHOL/HDL 3.2 LDL (CALC) 80 GLUCOSE 116 SODIUM 144 POTASSIUM 4.4 CHLORIDE 109 CO2 30 BUN 12 CREATININE 0.7 SGOT/AST 16 SGPT/ALT 21 ALK PHOS 77 TOTAL PROTEIN 6.1 ALBUMIN 3.7 TOTAL BILI 0.3 CALCIUM 8.4 AGE 68 GFR NonAA 83 GFR AA 101 eGFR 83 eGFR AA* >60 MICROALBUMIN UR <0.5 HGB A1C 6.7 Est Avg Glucose 145.6 VITAMIN B12 1501 07/14/2018 11:14 AM Falls in last 6 months? No Unsteady or worry about falling ? No Fall Risk Assessment Not At Risk History Of Immunizations Name Date Admin Mfg Name Mfg Code Trade Name Lot# Route Inj Vis Given Vis Pub CVX Pneumococcal 04/02/2017 [employer] MSD PNEUMOVAX 23 [id number] Intramuscular Left Arm 04/09/2017 11/23/2014 33 Influenza 04/08/2018 Not Entered NE Fluzone Quadrivalent Not Entered Not Entered 08/02/2018 08/02/2018 158 History of Past Illness Name Date of Onset Comments Hypertension GERD (gastroesophageal reflux disease) Diabetes mellitus, type 2 Spinal stenosis, Cervical region Hypercholesteremia Actinic keratosis 07/23/2016 Nevus 07/23/2016 Pancreatitis, acute Nasal lesion 09/02/2016 Palpitations 10/06/2017 Controlled diabetes mellitus with long-term current use of insulin 04/24/2018 Acute cystitis with hematuria Jun 13 2016 10:42AM Cystocele, unspecified cystocele location Jun 13 2016 10:42AM Lesion of nose Jul 22 2016 3:14PM Actinic Keratosis Jul 22 2016 3:38PM Benign nevus Jul 22 2016 3:38PM Actinic keratosis Jul 15 2016 5:55PM Nevus Jul 15 2016 5:55PM Actinic keratosis Jul 22 2016 3:14PM Nevus Jul 22 2016 3:14PM Diabetes 1.5, managed as type 2 Aug 04 2016 9:04AM Essential hypertension Aug 04 2016 9:04AM Hyperlipidemia, unspecified hyperlipidemia type Aug 04 2016 9:04AM Cystocele, unspecified cystocele location Aug 04 2016 9:04AM Irregular heart beat Aug 04 2016 9:04AM Non morbid obesity, unspecified obesity type Aug 04 2016 9:04AM Dysuria Aug 04 2016 9:04AM Encounter for screening mammogram for breast cancer Aug 04 2016 10:45AM Postmenopausal Aug 04 2016 10:45AM Reflux esophagitis Aug 04 2016 9:04AM Osteopenia Aug 12 2016 8:20AM Encounter for annual routine gynecological examination Aug 13 2016 2:12PM Cystocele Aug 13 2016 2:12PM Rectocele Aug 13 2016 2:12PM Urgency of urination Aug 13 2016 2:12PM Nevus Aug 19 2016 1:09PM Rectocele Aug 20 2016 10:09AM Cystocele Aug 20 2016 10:09AM Cystocele Aug 26 2016 10:46AM Rectocele Aug 26 2016 10:46AM Diabetes 1.5, managed as type 2 Aug 28 2016 9:41AM Cystocele, unspecified cystocele location Aug 28 2016 9:41AM Nevus Aug 31 2016 2:52PM Nasal lesion Aug 31 2016 2:52PM Medication management Sep 15 2016 3:23PM Acute bronchitis, unspecified organism Oct 08 2016 1:50PM Acute upper respiratory infection Oct 08 2016 1:50PM Fever in other diseases Oct 08 2016 1:50PM Hyperlipidemia, unspecified hyperlipidemia type Nov 03 2016 2:03PM Diabetes Nov 03 2016 2:03PM Diabetes 1.5, managed as type 2 Dec 02 2016 2:05PM Reflux gastritis Dec 02 2016 2:05PM Diabetes 1.5, managed as type 2 Jan 13 2017 10:36AM Osteopenia Jan 13 2017 10:36AM Herpes simplex virus (HSV) infection Feb 03 2017 8:16AM Diabetes type 2, controlled Apr 13 2017 8:17AM Low back pain Apr 13 2017 8:17AM Other chronic pain Apr 13 2017 8:17AM Myalgia Apr 13 2017 8:17AM Diabetes 1.5, managed as type 2 May 05 2017 8:50AM Transaminitis May 05 2017 8:50AM Bitten or stung by nonvenomous insect and other nonvenomous arthropods, initial encounter May 05 2017 8:50AM Urinary incontinence Jun 14 2017 2:59PM Fecal incontinence Jun 14 2017 2:59PM Pelvic prolapse Jun 14 2017 2:59PM Cystocele, unspecified Jun 14 2017 2:59PM Rectocele Jun 14 2017 2:59PM Cystocele, midline Jun 21 2017 2:13PM Old Laceration Of Muscles Of Pelvic Floor Jun 21 2017 2:13PM Rectocele female, w/o uterine prolapse Jun 21 2017 2:13PM Urinary frequency Jun 21 2017 2:13PM Diabetes 1.5, managed as type 2 Jul 07 2017 10:09AM Nausea Jul 07 2017 10:09AM Hypertension Jul 07 2017 10:09AM Hyperlipemia Jul 07 2017 10:09AM Diabetes 1.5, managed as type 2 Oct 04 2017 11:30AM Hypertension Oct 04 2017 11:30AM Hyperlipidemia Oct 04 2017 11:30AM Diabetes Oct 06 2017 10:07AM Reflux gastritis Oct 06 2017 10:07AM Palpitations Oct 06 2017 10:07AM Hyperlipemia Oct 06 2017 10:07AM Essential hypertension Oct 06 2017 10:07AM Palpitations Oct 06 2017 11:23AM Type 2 diabetes mellitus with diabetic neuropathy, unspecified Oct 06 2017 10: 07AM Incontinence Oct 21 2017 10:43AM OAB (overactive bladder) Oct 21 2017 10:43AM Atrophic vaginitis Oct 21 2017 10:43AM Vaginal prolapse Nov 04 2017 9:39AM Breast cancer screening Nov 11 2017 9:02AM Reflux gastritis Nov 11 2017 9:02AM Atrophic vaginitis Nov 11 2017 9:02AM Preop examination Nov 16 2017 1:09PM OAB (overactive bladder) Nov 23 2017 2:36PM Incontinence Nov 23 2017 2:36PM Vaginal prolapse Nov 23 2017 2:36PM Constipation Dec 02 2017 12:54PM Dyspepsia Dec 07 2017 2:07PM Colon Cancer Screening Dec 07 2017 2:07PM Constipation Dec 07 2017 2:07PM Uncontrolled type 2 diabetes mellitus Jan 11 2018 8:03AM Palpitations Jan 11 2018 8:03AM Hypertension Jan 11 2018 8:03AM Constipation Jan 11 2018 8:03AM Vaginal prolapse Jan 12 2018 9:39AM Incomplete bladder emptying Dec 02 2017 12:54PM Dysuria Jan 26 2018 1:37PM Urethral irritation Jan 26 2018 1:37PM Acquired diverticulosis of colon Dec 20 2017 11:00AM Chronic hypertrophic gastritis Dec 20 2017 11:00AM Cystocele without uterine prolapse Feb 25 2018 10:43AM Breast pain, right Mar 08 2018 8:33AM Constipation Mar 08 2018 8:33AM Gastroesophageal Reflux Mar 08 2018 8:33AM Urinary Retention Mar 08 2018 8:33AM Dyspepsia Nov 23 2017 2:16PM Diarrhea Nov 23 2017 2:16PM Abdominal Pain, lower Nov 23 2017 2:16PM Hypertension Apr 11 2018 12:01PM Type 2 diabetes mellitus without complications Apr 11 2018 12:01PM emt intermediate (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 of insulin Apr 11 2018 12:01PM Diabetes Mellitus, Type II Apr 13 2018 8:46AM Hypertension Apr 18 2018 3:39PM Supraventricular tachycardia Apr 18 2018 3:39PM Type 2 diabetes mellitus without complications Apr 18 2018 3:39PM emt intermediate (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 of insulin Apr 18 2018 3:39PM Hypertension Jul 08 2018 10:13AM Type 2 diabetes mellitus without complications Jul 08 2018 10:13AM emt intermediate (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 of insulin Jul 08 2018 10:13AM Type 2 diabetes mellitus without complications Jul 13 2018 8:09AM [facility] (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 of insulin Jul 13 2018 8:09AM Hypertension Jul 13 2018 8:09AM Diverticulitis Jul 22 2018 8:19AM Epigastric abdominal pain Aug 04 2018 9:31AM Payers Insurance Name Company Name Plan Name Plan Number Policy Number Policy Group Number Start Date Medicare RHC Medicare RHC [id number] Friday, 2015 BCBS [facility] [id number] N/A Medicare RH Medicare RHC [id number] N/A Medicare Part A Medicare - Lab/Xray [id number] N/A Medicare Part B Medicare [place] [id number] N/A Medicare Part B Medicare [place] [id number] N/A History of Encounters Visit Date Visit Type Provider 08/04/2018 Office visit Hemant Dallas DO 07/22/2018 Office visit Hemant Dallas DO 07/19/2018 [facility] Carroll Chris DO 07/13/2018 Office visit Hemant Dallas DO 04/18/2018 Office visit Hemant Dallas DO 04/16/2018 [facility] Arcadio Sims DO 04/13/2018 Office visit Hemant Dallas DO 03/08/2018 Office visit Hemant Dallas DO 02/25/2018 Office visit Vel Abbott MD 01/26/2018 Office visit Anton Laws MD 01/12/2018 Office visit Vel Abbott MD 01/11/2018 Office visit Hemant Dallas DO 12/20/2017 Office visit Tito Adkins MD 12/16/2017 Surgery Tito Adkins MD 12/07/2017 Office visit Tito Adkins MD 12/02/2017 Office visit Vel Abbott MD 11/26/2017 Hospital Naomi Alejandro MD 11/25/2017 [facility] Shahbaz Emerson MD 11/24/2017 Surgery Vel Abbott MD 11/24/2017 [facility] Carroll Chris DO 11/23/2017 Office visit Tito Adkins MD 11/16/2017 [facility] Naomi Alejandro MD 11/11/[address] Susie Sims DO 11/04/2017 Procedures Vel Abbott MD 10/21/2017 Office visit Vel Abbott MD 10/06/[address] Susie Sims DO 07/07/[address] Susie Sims DO 06/21/2017 Office visit Anton Laws MD 06/14/[address] Padma Humphrey MD 05/05/[address] Susie Sims DO 04/13/[address] Susie Sims DO 02/03/[address] Susie Sims DO 01/13/[address] Susie Sims DO 12/02/[address] Susie Sims DO 11/05/2016 [facility] Naomi Alejandro MD 11/03/[address] Susie Sims DO 10/08/2016 Office visit Neris Rinaldi GLASS CARRIER 09/15/[address] Susie Sims DO 09/15/2016 Procedures Carroll hCris DO 08/31/2016 Procedures Carroll Chris DO 08/28/[address] Susie Sims DO 08/26/2016 Office visit Tiffany Mccoy GLASS CARRIER 08/20/2016 Office visit Tiffany Mccoy GLASS CARRIER 08/19/2016 Office visit Carroll Chris DO 08/13/[address] Padma Humphrey MD 08/04/[address] Susie Sims DO 08/04/2016 Procedures Carroll Bonicole DO 07/22/2016 Procedures Carroll Bouman DO 07/15/2016 Office visit Chris Reyes GLASS CARRIER 06/13/2016 Office visit Shirin IRBY 03/11/2016 [facility] Naomi Alejandro MD
--- OUTSIDE RECORDS SUMMARY | 2018-10-05 11:14 | XMS REPORT ---
Author Author Hemant Dallas [facility] Address [address] [place], [place] [address] Care Team Providers Care Damper Fitter Name Role Phone Hemant Dallas PCP Allergies and Adverse Reactions Name Reaction Notes [...] 2 times per day for 90 days sulfamethoxazole-trimethoprim 800-160 mg oral tablet 07/22/2018 07/29/2018 take 1 tablet by oral route every 12 hours for 7 days fluconazole 100 mg oral tablet 07/22/2018 take 1 tablet by oral route every other day Name Start Date Expiration Date SIG Comments [...] per day before meals for 90 days Discontinued Name Start Date Discontinued Date [...] with glass of water for 30 days Problem List Description Status Onset Hypertension Active Actinic keratosis Active 07/22/2016 Actinic keratosis Active 07/23/2016 Nevus Active 07/23/2016 Actinic keratosis Active 07/23/2016 Nasal lesion Active 09/02/2016 Palpitations Active 10/06/2017 Controlled diabetes mellitus with long-term current use of insulin Active Vital Signs Date Time BP-Sys(mm[Hg] BP-Ashley(mm[Hg]) HR(bpm) RR(rpm) Temp WT HT HC BMI BSA BMI Percentile O2 Sat(%) 07/22/2018 8:17:00 AM 154 mmHg 80 mmHg 72 bpm 22 rpm 99.7 F 194 lbs 61 in 36.6556 kg/m 1.9461 m 97 % 07/13/2018 8:07:00 AM 142 mmHg 70 mmHg 60 bpm 20 rpm 99 F 189 lbs 61 in 35.71 kg/m2 1.92 m2 96 % 04/18/2018 3:39:00 PM 124 mmHg 86 mmHg 62 bpm 18 rpm 98.1 F 192.25 lbs 61 in 36.3249 kg/m 1.9373 m 95 % 04/13/2018 8:42:00 AM 120 mmHg 80 mmHg 73 bpm 18 rpm 98.1 F 190.5 lbs 61 in 35.99 kg/m2 1.93 m2 95 % 03/08/2018 8:30:00 AM 140 mmHg 85 mmHg 85 bpm 18 rpm 99.1 F 187.25 lbs 61 in 35.3802 kg/m 1.9119 m 96 % 02/25/2018 10:41:00 AM 135 mmHg 85 mmHg 79 bpm 18 rpm 97.9 F 188.375 lbs 61 in 35.59 kg/m2 1.92 m2 98 % 01/26/2018 1:29:00 PM 148 mmHg [...] [employer] 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 Apr 11 2018 12:01PM Diabetes Mellitus, Type II Apr 13 2018 8:46AM Hypertension Apr 18 2018 3:39PM Supraventricular tachycardia Apr 18 2018 3:39PM Type 2 diabetes mellitus without complications Apr 18 2018 3:39PM [facility] (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 of insulin Apr 18 2018 3:39PM Hypertension Jul 08 2018 10:13AM Type 2 diabetes mellitus without complications Jul 08 2018 10:13AM [facility] (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 of insulin Jul 08 2018 10:13AM Type 2 diabetes mellitus without complications Jul 13 2018 8:09AM 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 Jul 13 2018 8:09AM Hypertension Jul 13 2018 8:09AM Diverticulitis Jul 22 2018 8:19AM Payers Insurance Name Company Name Plan Name Plan Number Policy Number Policy Group Number Start Date Medicare RHC Medicare RHC [id number] Friday, 2015 BCBS [facility] [id number] N/A Medicare RHC Medicare RHC [id number] N/A Medicare Part A Medicare - Lab/Xray [id number] N/A Medicare Part B Medicare [place] [id number] N/A Medicare Part B Medicare [place] [id number] N/A History of Encounters Visit Date Visit Type Provider 07/22/2018 Office visit Hemant Dallas DO 07/19/2018 [facility] Carroll Chris DO 07/13/2018 Office visit Hemant Dallas DO 04/18/2018 Office visit Hemant Dallas DO 04/16/2018 [facility] Arcadio Sims 04/13/2018 Office visit Hemant Dallas DO 03/08/2018 Office visit Hemant Dallas DO 02/25/2018 Office visit Vel Abbott MD 01/26/2018 Office visit Anton Laws MD 01/12/2018 Office visit Vel Abbott MD 01/11/2018 Office visit Hemant Dallas DO 12/20/2017 Office visit Tito Adkins MD 12/16/2017 Surgery Tito Adkins MD 12/07/2017 Office visit Tito Adkins MD 12/02/2017 Office visit Vel Abbott MD 11/26/2017 [facility] Naomi Alejandro MD 11/25/2017 [facility] Shahbaz Emerson MD 11/24/2017 Surgery Vel Abbott MD 11/24/2017 [facility] Carroll Chris DO 11/23/2017 Office visit Tito Adkins MD 11/16/2017 [facility] Naomi Alejandro MD 11/11/[address] [...] Office visit Dr. Susie Sims DO 11/05/2016 [facility] Naomi Alejandro MD 11/03/[address] Susie Sims DO 10/08/2016 Office visit Neris Rinaldi LENS GRINDING MACHINE OPERATOR 09/15/[address] Susie Sims DO 09/15/2016 Procedures Carroll Bonicole DO 08/31/2016 Procedures Carroll Bouman DO 08/28/[address] Susie Sims DO 08/26/2016 Office visit Tiffany Mccoy LENS GRINDING MACHINE OPERATOR 08/20/2016 Office visit Tiffany Mccoy LENS GRINDING MACHINE OPERATOR 08/19/2016 Office visit Carroll Chris DO 08/13/[address] Padma Humphrey MD 08/04/[address] Susie Sims DO 08/04/2016 Procedures Carroll Bouman DO 07/22/2016 Procedures Carroll Bouman DO 07/15/2016 Office visit Chris Reyes LENS GRINDING MACHINE OPERATOR 06/13/2016 Office visit Shirin IRBY 03/11/2016 [facility] Naomi Alejandro MD
--- OUTSIDE RECORDS SUMMARY | 2018-10-05 11:16 | XMS REPORT ---
Author Author Hemant Dallas [facility] Address [address] [place], [place] [id number] Care Team Providers Care Batch Mixer Name Role Phone Hemant Dallas PCP Allergies [...] [employer] 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 Apr 11 2018 12:01PM Diabetes Mellitus, Type II Apr 13 2018 8:46AM Hypertension Apr 18 2018 3:39PM Supraventricular tachycardia Apr 18 2018 3:39PM Type 2 diabetes mellitus without complications Apr 18 2018 3:39PM residential (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 of insulin Apr 18 2018 3:39PM Hypertension Jul 08 2018 10:13AM Type 2 diabetes mellitus without complications Jul 08 2018 10:13AM residential (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 of insulin Jul 08 2018 10:13AM Type 2 diabetes mellitus without complications Jul 13 2018 8:09AM 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 Jul 13 2018 8:09AM Hypertension Jul 13 2018 8:09AM Diverticulitis Jul 22 2018 8:19AM Payers Insurance Name Company Name Plan Name Plan Number Policy Number Policy Group Number Start Date Medicare RHC Medicare RHC [id number] Friday, 2015 BCBS [facility] [id number] N/A Medicare RHC Medicare RHC [id number] N/A Medicare Part A Medicare - Lab/Xray [id number] N/A Medicare Part B Medicare [place] [id number] N/A Medicare Part B Medicare [place] [id number] N/A History of Encounters Visit Date Visit Type Provider 07/22/2018 Office visit Hemant Dallas DO 07/19/2018 [facility] Carroll Chris DO 07/13/2018 Office visit Hemant Dallas DO 04/18/2018 Office visit Hemant Dallas DO 04/16/2018 [facility] Arcadio Sims 04/13/2018 Office visit Hemant Dallas DO 03/08/2018 Office visit Hemant Dallas DO 02/25/2018 Office visit Vel Abbott MD 01/26/2018 Office visit Anton Laws MD 01/12/2018 Office visit Vel Abbott MD 01/11/2018 Office visit Hemant Dallas DO 12/20/2017 Office visit Tito Adkins MD 12/16/2017 Surgery Tito Adkins MD 12/07/2017 Office visit Tito Adkins MD 12/02/2017 Office visit Vel Abbott MD 11/26/2017 [facility] Naomi Alejandro MD 11/25/2017 [facility] Shahbaz Emerson MD 11/24/2017 Surgery Vel Abbott MD 11/24/2017 [facility] Carroll Chris DO 11/23/2017 Office visit Tito Adkins MD 11/16/2017 [facility] Naomi Alejandro MD 11/11/[address] [...] Office visit Dr. Susie Sims DO 11/05/2016 [facility] Naomi Alejandro MD 11/03/[address] Susie Sims DO 10/08/2016 Office visit Neris Rinaldi ENGRAVED ROLLER INSPECTOR 09/15/[address] Susie Sims DO 09/15/2016 Procedures Carroll Bonicole DO 08/31/2016 Procedures Carroll Bouman DO 08/28/[address] Susie Sims DO 08/26/2016 Office visit Tiffany Mccoy ENGRAVED ROLLER INSPECTOR 08/20/2016 Office visit Tiffany Mccoy ENGRAVED ROLLER INSPECTOR 08/19/2016 Office visit Carroll Chris DO 08/13/[address] Padma Humphrey MD 08/04/[address] Susie Sims DO 08/04/2016 Procedures Carroll Bouman DO 07/22/2016 Procedures Carroll Bouman DO 07/15/2016 Office visit Chris Reyes ENGRAVED ROLLER INSPECTOR 06/13/2016 Office visit Shirin IRBY 03/11/2016 [facility] Naomi Alejandro MD
--- OUTSIDE RECORDS SUMMARY | 2018-10-05 11:17 | XMS REPORT ---
Author Author Hemant Dallas [facility] Address [address] [place], [place] [id number] Care Team Providers Care Freelance Court Reporter Name Role Phone Hemant Dallas PCP Allergies [...] List Description Status Onset Hypertension Active Actinic Keratosis Active 07/22/2016 Actinic Keratosis Active 07/23/2016 Nevus Active 07/23/2016 Actinic Keratosis Active 07/23/2016 Nasal lesion Active 09/02/2016 Palpitations Active 10/06/2017 Controlled diabetes mellitus with long-term current use of insulin Active Vital Signs Date Time BP-Sys(mm[Hg] BP-Ashley(mm[Hg]) HR(bpm) RR(rpm) Temp WT HT HC BMI BSA BMI Percentile O2 Sat(%) 07/13/2018 8:07:00 AM 142 mmHg 70 mmHg [...] [employer] 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 Apr 11 2018 12:01PM Diabetes Mellitus, Type II Apr 13 2018 8:46AM Hypertension Apr 18 2018 3:39PM Supraventricular tachycardia Apr 18 2018 3:39PM Type 2 diabetes mellitus without complications Apr 18 2018 3:39PM 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 Apr 18 2018 3:39PM Hypertension Jul 08 2018 10:13AM Type 2 diabetes mellitus without complications Jul 08 2018 10:13AM residential (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 of insulin Jul 08 2018 10:13AM Type 2 diabetes mellitus without complications Jul 13 2018 8:09AM residential (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 of insulin Jul 13 2018 8:09AM Hypertension Jul 13 2018 8:09AM Payers Insurance Name Company Name Plan Name Plan Number Policy Number Policy Group Number Start Date Medicare RHC Medicare RH [id number] Friday, 2015 [facility] [id number] N/A Medicare RHC Medicare RHC [id number] N/A Medicare Part A Medicare - Lab/Xray [id number] N/A Medicare Part B Medicare Of [place] [id number] N/A Medicare Part B Medicare [place] [id number] N/A History of Encounters Visit Date Visit Type Provider 07/13/2018 Office visit Hemant Dallas DO 04/18/2018 Office visit Hemant Dallas DO 04/16/2018 [facility] Arcadio Sims MD 04/13/2018 Office visit Hemant Dallas DO 03/08/2018 Office visit Hemant Dallas DO 02/25/2018 Office visit Vel Abbott MD 01/26/2018 Office visit Anton Laws MD 01/12/2018 Office visit Vel Abbott MD 01/11/2018 Office visit Hemant Dallas DO 12/20/2017 Office visit Tito Adkins MD 12/16/2017 Surgery Tito Adkins MD 12/07/2017 Office visit Tito Adkins MD 12/02/2017 Office visit Vel Abbott MD 11/26/2017 [facility] Naomi Alejandro MD 11/25/2017 [facility] Shahbaz Emerson MD 11/24/2017 Surgery Vel Abbott MD 11/24/2017 Hospital Carroll Chris DO 11/23/2017 Office visit Tito Adkins MD 11/16/2017 [facility] Naomi Alejandro MD 11/11/2017 Office [...] Office visit Dr. Susie Sims DO 11/05/2016 [facility] Naomi Alejandro MD 11/03/[address] Susie Sims DO 10/08/2016 Office visit Neris Rinaldi COMMUNICATIONS OFFICER 09/15/[address] Susie Sims DO 09/15/2016 Procedures Carroll Bouman DO 08/31/2016 Procedures Carroll Bouman DO 08/28/[address] Susie Sims DO 08/26/2016 Office visit Tiffany Mccoy COMMUNICATIONS OFFICER 08/20/2016 Office visit Tiffany Mccoy COMMUNICATIONS OFFICER 08/19/2016 Office visit Carroll Chris DO 08/13/[address] Padma Humphrey MD 08/04/[address] Susie Sims DO 08/04/2016 Procedures Carroll Bouman DO 07/22/2016 Procedures Carroll Bouman DO 07/15/2016 Office visit Chris Reyes COMMUNICATIONS OFFICER 06/13/2016 Office visit Shirin IRBY 03/11/2016 [facility] Naomi Alejandro MD
[2018-10-05] MEDS ORDERED: LACTATED RINGERS 1,000 ML IV ONE (11:18)
--- OUTSIDE RECORDS SUMMARY | 2018-10-05 11:18 | XMS REPORT ---
Author Author Hemant Dallas [facility] Address [address] [place], [place] [id number] Care Team Providers Care Lombardi Developer Name Role Phone Hemant Dallas PCP Allergies [...] take 1 tablet by oral route daily Vitamin B-12 500 mcg oral tablet take 1 tablet by oral [...] stopped because it was causing her cramps ranitidine HCl 75 mg oral tablet 04/13/2018 [...] [employer] 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 Jul 08 2018 10:13AM Payers Insurance Name Company Name Plan Name Plan Number Policy Number Policy Group Number Start Date Medicare RHC Medicare RHC [id number] Friday, 2015 BCBS [facility] [place] [id number] N/A Medicare RHC Medicare RHC [id number] N/A Medicare Part A Medicare - Lab/Xray [id number] N/A Medicare Part B Medicare [place] [id number] N/A Medicare Part B Medicare [place] [id number] N/A History of Encounters Visit Date Visit Type Provider 07/13/2018 Office visit Hemant Dallas DO 04/18/2018 Office visit Hemant Dallas DO 04/16/2018 Hospital Arcadio Sims MD 04/13/2018 Office visit Hemant [...] MD 11/26/2017 Hospital Naomi Alejandro MD 11/25/2017 Hospital Shahbaz Emerson MD 11/24/2017 Surgery Vel Abbott MD 11/24/2017 [facility] Carroll Chris DO 11/23/2017 Office visit Tito Adkins MD 11/16/2017 Hospital Naomi Alejandro MD 11/11/2017 Office visit [...] Office visit Dr. Susie Sims DO 11/05/2016 Hospital Naomi Alejandro MD 11/03/[address] Susie Sims DO 10/08/2016 Office visit Neris Rinaldi UTILITY PLANT OPERATIVE 09/15/[address] Susie Sims DO 09/15/2016 Procedures Carroll Bonicole DO 08/31/2016 Procedures Carroll Aries DO 08/28/[address] Susie Sims DO 08/26/2016 Office visit Tiffany Mccoy UTILITY PLANT OPERATIVE 08/20/2016 Office visit Tiffany Mccoy UTILITY PLANT OPERATIVE 08/19/2016 Office visit Carroll Chris DO 08/13/[address] Padma Humphrey MD 08/04/[address] Susie Sims DO 08/04/2016 Procedures Carroll Bonicole DO 07/22/2016 Procedures Carroll Bouman DO 07/15/2016 Office visit Chris Reyes UTILITY PLANT OPERATIVE 06/13/2016 Office visit Shirin IRBY 03/11/2016 [facility] Naomi Alejandro MD
--- OUTSIDE RECORDS SUMMARY | 2018-10-05 11:19 | XMS REPORT ---
Author Author Hemant Dallas [facility] Address [address] [place], [place] [address] Care Team Providers Care Plaster Mold Maker Name Role Phone Hemant Dallas PCP Allergies [...] W/MICRO C&S IF IND 11/23/2017 12:00 AM CMP 07/08/2018 12:00 AM Microalbumin; Urine, Random 07/08/2018 12:00 AM Lipid panel 07/08/2018 12:00 AM VITAMIN B12 07/08/2018 12:00 AM Hemoglobin A1c measurement 07/08/2018 12:00 AM cystocele 07/09/2016 2:00 PM cystocele [...] take 1 tablet by oral route daily Lantus Solostar U-100 Insulin 100 unit/mL (3 mL) subcutaneous insulin pen 04/13 inject by subcutaneous route 30 units twice daily ranitidine HCl 75 mg oral tablet 04/13/2018 10/10/2018 take 1 tablet (75 mg) by oral route 2 times per day with glass of water for 30 days metoprolol succinate 25 mg oral tablet extended release 24 hr take 1 tablet (25 mg) by oral route once daily Name Start Date Expiration Date SIG Comments [...] oral route once daily for 1 day Novolog Flexpen U-100 Insulin 100 unit/mL subcutaneous insulin pen 01/16/2018 04/16/2018 inject 10 units by subcutaneous route with each meal No rx given.Dose adjusted 01/11/18 glipizide 10 mg oral tablet 03/01/2018 05/30/2018 [...] stopped because it was causing her cramps Problem List Description Status Onset Hypertension Active Actinic Keratosis Active 07/22/2016 Actinic Keratosis Active 07/23/2016 Nevus Active 07/23/2016 Actinic Keratosis Active 07/23/2016 Nasal lesion Active 09/02/2016 Palpitations Active 10/06/2017 Controlled diabetes mellitus with long-term current use of insulin Active Vital Signs Date Time BP-Sys(mm[Hg] BP-Ashley(mm[Hg]) HR(bpm) RR(rpm) Temp WT HT HC BMI BSA BMI Percentile O2 Sat(%) 04/18/2018 3:39:00 PM 124 mmHg 86 mmHg [...] 04/13/2018 12:00 AM GLYCOSYLATED HEMOGLOBIN TEST Reviewed Results [...] HGB A1C 7.0 Est Avg Glucose 154.2 History Of Immunizations Name Date Admin Mfg Name Mfg Code Trade Name Lot# Route Inj Vis Given Vis Pub CVX Pneumococcal 04/02/2017 [employer] MSD PNEUMOVAX 23 [id number] Intramuscular Left Arm 04/09/2017 11/23/2014 33 Influenza 04/08/2018 Not Entered NE Fluzone Quadrivalent Not Entered Not Entered 08/02/2018 08/02/2018 158 History of Past Illness Name Date of Onset Comments Hypertension GERD (gastroesophageal reflux disease) Diabetes mellitus, Type 2 Spinal stenosis, Cervical region Hypercholesteremia Actinic [...] mellitus without complications Apr 11 2018 12:01PM [facility] (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 of insulin Apr 11 2018 12:01PM Diabetes Mellitus, Type II Apr 13 2018 8:46AM Hypertension Apr 18 2018 3:39PM Supraventricular tachycardia Apr 18 2018 3:39PM Type 2 diabetes mellitus without complications Apr 18 2018 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 Apr 18 2018 3:39PM Hypertension Jul 08 2018 10:13AM Type 2 diabetes mellitus without complications Jul 08 2018 10:13AM [facility] (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 of insulin Jul 08 2018 10:13AM Payers Insurance Name Company Name Plan Name Plan Number Policy Number Policy Group Number Start Date Medicare RHC Medicare RHC [id number] Wednesday, 2015 [facility] [id number] N/A Medicare RHC Medicare RHC [id number] N/A Medicare Part A Medicare - Lab/Xray [id number] N/A Medicare Part B Medicare Of [place] [id number] N/A Medicare Part B Medicare [place] [id number] N/A History of Encounters Visit Date Visit Type Provider 04/18/2018 Office visit Hemant Dallas DO 04/16/2018 [facility] Arcadio Sims MD 04/13/2018 Office visit [...] Office visit Vel Abbott MD 11/26/2017 Hospital aNomi Alejandro MD 11/25/2017 Hospital Shahbaz Emerson MD 11/24/2017 Surgery Vel Abbott MD 11/24/2017 [facility] Carroll Chris DO 11/23/2017 Office visit [...] Sims DO 10/08/2016 Office visit Neris Rinaldi LOGGING ASSISTANT 09/15/[address] Susie Sims DO 09/15/2016 Procedures Carroll Chris DO 08/31/2016 Procedures Carroll Chris DO 08/28/[address] Susie Sims DO 08/26/2016 Office visit Tiffany Mccoy LOGGING ASSISTANT 08/20/2016 Office visit Tiffany Mccoy LOGGING ASSISTANT 08/19/2016 Office visit Carroll Chris DO 08/13/[address] Padma Humphrey MD 08/04/[address] Susie Sims DO 08/04/2016 Procedures Carroll Chris DO 07/22/2016 Procedures Carroll Aries DO 07/15/2016 Office visit Chris Reyes LOGGING ASSISTANT 06/13/2016 Office visit Shirin IRBY 03/11/2016 [facility] Naomi Alejandro MD
--- OUTSIDE RECORDS SUMMARY | 2018-10-05 11:21 | XMS REPORT ---
Author Author Hemant Dallas [facility] Address [address] [place], [place] [address] Care Team Providers Care Pattern Shop Supervisor Name Role Phone Hemant Dallas PCP Allergies [...] [employer] MSD PNEUMOVAX 23 [id number] Intramuscular Left Arm 04/09/2017 11/23/2014 33 Influenza [...] mellitus without complications Apr 11 2018 12:01PM jail (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 of insulin Apr 11 2018 12:01PM Diabetes Mellitus, Type II Apr 13 2018 8:46AM Hypertension Apr 18 2018 3:39PM Supraventricular tachycardia Apr 18 2018 3:39PM Type 2 diabetes mellitus without complications Apr 18 2018 3:39PM rn long term care (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 of insulin Apr 18 2018 3:39PM Hypertension Jul 08 2018 10:13AM Type 2 diabetes mellitus without complications Jul 08 2018 10:13AM jail (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 of insulin Jul 08 2018 10:13AM Payers Insurance Name Company Name Plan Name Plan Number Policy Number Policy Group Number Start Date Medicare RHC Medicare RHC [id number] Wednesday, 2015 [facility] [id number] N/A Medicare RHC Medicare RHC [id number] N/A Medicare Part A Medicare - Lab/Xray [id number] N/A Medicare Part B Medicare Of [place] [id number] N/A Medicare Part B Medicare [place] [id number] N/A History of Encounters Visit Date Visit Type Provider 04/18/2018 Office visit Hemant Dallas DO 04/16/2018 [facility] Arcadio Sims MD 04/13/2018 Office visit Hemant [...] MD 11/24/2017 Surgery Vel Abbott MD 11/24/2017 [facility] Carroll Chris DO 11/23/2017 Office visit Tito [...] Sims DO 10/08/2016 Office visit Neris Rinaldi GALLEY STRIPPER 09/15/[address] Susie Sims DO 09/15/2016 Procedures Carroll Chris DO 08/31/2016 Procedures Carroll Chris DO 08/28/[address] Susie Sims DO 08/26/2016 Office visit Tiffany Mccoy GALLEY STRIPPER 08/20/2016 Office visit Tiffany Mccoy GALLEY STRIPPER 08/19/2016 Office visit Carroll Chris DO 08/13/[address] Padma Humphrey MD 08/04/[address] Susie Sims DO 08/04/2016 Procedures Carroll Chris DO 07/22/2016 Procedures Carroll Aries DO 07/15/2016 Office visit Chris Reyes GALLEY STRIPPER 06/13/2016 Office visit Shirin IRBY 03/11/2016 [facility] Naomi Alejandro MD
--- OUTSIDE RECORDS SUMMARY | 2018-10-05 11:22 | XMS REPORT ---
Author Author Hemant Dallas [facility] Address [address] [place], [place] [address] Care Team Providers Care Gymnastics Coach Name Role Phone Hemant Dallas PCP Allergies [...] oral route once daily for 90 days glipizide 10 mg oral tablet 03/01/2018 05/30/2018 take 1 tablet (10 mg) by oral route 2 times per day before meals for 90 days losartan 100 mg oral [...] each meal No rx given.Dose adjusted 01/11/18 Discontinued Name Start Date Discontinued Date SIG [...] [employer] MSD PNEUMOVAX 23 [id number] Intramuscular Left Arm 04/09/2017 11/23/2014 33 Influenza [...] mellitus without complications Apr 11 2018 12:01PM [facility] (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 of insulin Apr 11 2018 12:01PM Diabetes Mellitus, Type II Apr 13 2018 8:46AM Hypertension Apr 18 2018 3:39PM Supraventricular tachycardia Apr 18 2018 3:39PM Type 2 diabetes mellitus without complications Apr 18 2018 3:39PM [facility] (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 of insulin Apr 18 2018 3:39PM Payers Insurance Name Company Name Plan Name Plan Number Policy Number Policy Group Number Start Date Medicare RHC Medicare RH [id number] Friday, 2015 BCBS [facility] [id number] N/A Medicare RHC Medicare RHC [id number] N/A Medicare Part A Medicare - Lab/Xray [id number] N/A Medicare Part B Medicare Of [place] [id number] N/A Medicare Part B Medicare [place] [id number] N/A History of Encounters Visit Date Visit Type Provider 04/18/2018 Office visit Hemant Dallas DO 04/13/2018 Office visit Hemant Dallas DO [...] MD 11/26/2017 Hospital Naomi Alejandro MD 11/25/2017 [facility] Shahbaz Emerson MD 11/24/2017 Surgery Vel Abbott MD 11/24/2017 [facility] Carroll Chris DO 11/23/2017 Office [...] Office visit Dr. Susie Sims DO 11/05/2016 [facility] Naomi Alejandro MD 11/03/[address] Susie Sims DO 10/08/2016 Office visit Neris Rinaldi JALOUSIE INSTALLER 09/15/[address] Susie Sims DO 09/15/2016 Procedures Carroll Bouman DO 08/31/2016 Procedures Carroll Bouman DO 08/28/[address] Susie Sims DO 08/26/2016 Office visit Tiffany Mccoy JALOUSIE INSTALLER 08/20/2016 Office visit Tiffany Mccoy JALOUSIE INSTALLER 08/19/2016 Office visit Carroll Chris DO 08/13/[address] Padma Humphrey MD 08/04/[address] Susie Sims DO 08/04/2016 Procedures Carroll Bonicole DO 07/22/2016 Procedures Carroll Bouman DO 07/15/2016 Office visit Chris Reyes JALOUSIE INSTALLER 06/13/2016 Office visit Shirin IRBY 03/11/2016 [facility] Naomi Alejandro MD
--- OUTSIDE RECORDS SUMMARY | 2018-10-05 11:23 | XMS REPORT ---
Author Author Hemant Dallas [facility] Address [address] [place], [place] [address] Care Team Providers Care Pool Lifeguard Name Role Phone Hemant Dallas PCP Allergies [...] (10 mg) by oral route once daily ondansetron 4 mg oral tablet,disintegrating 07/07/2017 dissolve 1 tablet by oral route As needed for 30 days Premarin 0.625 mg/gram vaginal cream 10/21/2017 insert [...] with glass of water for 30 days Name Start Date Expiration Date SIG [...] 90 days glipizide 10 mg oral tablet 09/02/2017 [...] Nasal lesion Active 09/02/2016 Palpitations Active 10/06/2017 Vital Signs Date Time BP-Sys(mm[Hg] BP-Ashley(mm[Hg]) HR(bpm) RR(rpm) Temp WT HT HC BMI BSA BMI Percentile O2 Sat(%) 04/13/2018 8:42:00 AM 120 mmHg 80 mmHg [...] [employer] 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 Apr 11 2018 12:01PM Diabetes Mellitus, Type II Apr 13 2018 8:46AM Payers Insurance Name Company Name Plan Name Plan Number Policy Number Policy Group Number Start Date Medicare RHC Medicare RHC [id number] Friday, 2015 [id number] N/A Medicare RHC Medicare RHC [id number] N/A Medicare Part A Medicare - Lab/Xray [id number] N/A Medicare Part B Medicare Of [place] [id number] N/A Medicare Part B Medicare [place] [id number] N/A History of Encounters Visit Date Visit Type Provider 04/13/2018 Office visit Hemant Dallas DO 03/08/2018 [...] 11/23/2017 Office visit Tito Adkins MD 11/16/2017 [facility] Naomi Alejandro MD 11/11/2017 Office [...] Sims DO 10/08/2016 Office visit Neris Rinaldi MINE WEDGE SAWYER 09/15/[address] Susie Sims DO 09/15/2016 Procedures Carroll Chris DO 08/31/2016 Procedures Carroll Chris DO 08/28/[address] Susie Sims DO 08/26/2016 Office visit Tiffany Mccoy MINE WEDGE SAWYER 08/20/2016 Office visit Tiffany Mccoy MINE WEDGE SAWYER 08/19/2016 Office visit Carroll Chris DO 08/13/[address] Padma Humphrey MD 08/04/[address] Susie Sims DO 08/04/2016 Procedures Carroll Chris DO 07/22/2016 Procedures Carroll Chris DO 07/15/2016 Office visit Chris Reyes MINE WEDGE SAWYER 06/13/2016 Office visit Shirin IRBY 03/11/2016 [facility] Naomi Alejandro MD
--- OUTSIDE RECORDS SUMMARY | 2018-10-05 11:24 | XMS REPORT ---
Author Author Hemant Dallas [facility] Address [address] [place], [place] [address] Care Team Providers Care Rubber Mixer Name Role Phone Hemant Dallas PCP [...] one capsule by oral route twice daily Novolog Flexpen U-100 Insulin 100 unit/mL subcutaneous insulin pen 01/16/2018 04/16/2018 inject 10 units by subcutaneous route with each meal No rx given.Dose adjusted 01/11/18 Aspir-81 81 mg oral tablet,delayed release (DR/EC) [...] oral route once daily for 1 day Discontinued Name Start Date Discontinued Date SIG [...] [employer] MSD PNEUMOVAX 23 [id number] Intramuscular Left Arm 04/09/2017 11/23/2014 33 Influenza [...] mellitus without complications Apr 11 2018 12:01PM rn long term care (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 of insulin Apr 11 2018 12:01PM Diabetes Mellitus, Type II Apr 13 2018 8:46AM Payers Insurance Name Company Name Plan Name Plan Number Policy Number Policy Group Number Start Date Medicare RHC Medicare RHC [id number] Friday, 2015 [facility] [id number] N/A Medicare RHC Medicare RHC [id number] N/A Medicare Part A Medicare - Lab/Xray [id number] N/A Medicare Part B Medicare Of [place] [id number] N/A Medicare Part B Medicare [place] [id number] N/A History of Encounters Visit Date Visit Type Provider 04/13/2018 Office visit Hemant Dallas DO 03/08/2018 Office visit Hemant Dallas DO 02/25/2018 Office visit Vel Abobtt MD 01/26/2018 Office visit Anton Laws MD [...] 11/23/2017 Office visit Tito Adkins MD 11/16/2017 [facility] Naomi Alejandro MD 11/11/2017 Office visit [...] Sims DO 10/08/2016 Office visit Neris Rinaldi GLOVE CUFFER 09/15/[address] Susie Sims DO 09/15/2016 Procedures Carroll Chris DO 08/31/2016 Procedures Carroll Chris DO 08/28/[address] Susie Sims DO 08/26/2016 Office visit Tiffany Mccoy GLOVE CUFFER 08/20/2016 Office visit Tiffany Mccoy GLOVE CUFFER 08/19/2016 Office visit Carroll Chris DO 08/13/[address] Padma Humphrey MD 08/04/[address] Susie Sims DO 08/04/2016 Procedures Carroll Chris DO 07/22/2016 Procedures Carroll Chris DO 07/15/2016 Office visit Chris Reyes GLOVE CUFFER 06/13/2016 Office visit Shirin IRBY 03/11/2016 [facility] Naomi Alejandro MD
--- OUTSIDE RECORDS SUMMARY | 2018-10-05 11:26 | XMS REPORT ---
Author Author Hemant Dallas [facility] Address [address] [place], [place] [phone] Care Team Providers Care Caving Guide Name Role Phone Hemant Dallas PCP Allergies [...] [employer] 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 Apr 11 2018 12:01PM Diabetes Mellitus, Type II Apr 13 2018 8:46AM Payers Insurance Name Company Name Plan Name Plan Number Policy Number Policy Group Number Start Date Medicare RHC Medicare RHC [id number] Friday, 2015 [facility] [id number] N/A Medicare RHC Medicare RHC [id number] N/A Medicare Part A Medicare - Lab/Xray [id number] N/A Medicare Part B Medicare Of [place] [id number] N/A Medicare Part B Medicare [place] [id number] N/A History of Encounters Visit Date Visit [...] 11/23/2017 Office visit Tito Adkins MD 11/16/2017 [facility] Naomi Alejandro MD 11/11/2017 Office visit [...] Sims DO 10/08/2016 Office visit Neris Rinaldi WELDER ASSEMBLER 09/15/[address] Susie Sims DO 09/15/2016 Procedures Carroll Chris DO 08/31/2016 Procedures Carroll Chris DO 08/28/[address] Susie Sims DO 08/26/2016 Office visit Tiffany Mccoy WELDER ASSEMBLER 08/20/2016 Office visit Tiffany Mccoy WELDER ASSEMBLER 08/19/2016 Office visit Carroll Chris DO 08/13/[address] Padma Humphrey MD 08/04/[address] Susie Sims DO 08/04/2016 Procedures Carroll Chris DO 07/22/2016 Procedures Carroll Chris DO 07/15/2016 Office visit Chris Reyes WELDER ASSEMBLER 06/13/2016 Office visit Shirin IRBY 03/11/2016 [facility] Naomi Alejandro MD
--- OUTSIDE RECORDS SUMMARY | 2018-10-05 11:27 | XMS REPORT ---
Author Author Hemant Dallas [facility] Address [address] [place], [place] [address] Care Team Providers Care Physics Technician Name Role Phone Hemant Dallas PCP Allergies and Adverse Reactions Name Reaction Notes codeine sulfate nausea/abd pain Epinephrine fast heart beat Decongestant nausea Januvia made her sick Actos made her sick Victoza pancreatitis lisinopril Omeprazole Myrbetriq Plan of Treatment Planned Activity Comments Planned Date Planned Time Plan/Goal HEMOGLOBIN A1C 02/03/2017 12:00 AM HEMOGLOBIN A1C 10/06/2017 12:00 AM Urine microalbumin measurement 10/06/2017 12:00 AM URINALYSIS W/MICRO C&S IF IND 11/23/2017 12:00 AM CBC W/ AUTO DIFF (RFLX MAN DIFF IF IND). 04/11/2018 12:00 AM CMP 04/11/2018 12:00 AM Microalbumin; Urine, Random 04/11/2018 12:00 AM Lipid panel 04/11/2018 12:00 AM cystocele 07/09/2016 2:00 PM cystocele [...] only 3 times per week thereafter (MWF) Lantus Solostar U-100 Insulin 100 unit/mL (3 mL) subcutaneous insulin pen inject by subcutaneous route 30 units twice daily Vitamin D3 400 unit oral capsule take 1 capsule by oral route 2 times a day magnesium 400 mg oral take one capsule [...] TAKE ONE TABLET BY MOUTH ONCE DAILY pantoprazole 40 mg oral tablet,delayed release (DR/EC) 03/14/2018 09/10/2018 take 1 tablet (40 mg) by oral route once daily for 30 days Name Start Date Expiration [...] 30 minutes before meals and at bedtime Problem List Description Status Onset Hypertension Active Actinic keratosis Active 07/22/2016 Actinic keratosis Active 07/23/2016 Nevus Active 07/23/2016 Actinic keratosis Active 07/23/2016 Nasal lesion Active 09/02/2016 Palpitations Active 10/06/2017 Vital Signs Date Time BP-Sys(mm[Hg] BP-Ashley(mm[Hg]) HR(bpm) RR(rpm) Temp WT HT HC BMI BSA BMI Percentile O2 Sat(%) 03/08/2018 8:30:00 AM 140 mmHg 85 mmHg [...] UNI REAL TIME WITH IMAGE COMPLETE Reviewed Results Summary Date and Description Results [...] 01/18/2018 3:48 PM Residual Urine 65.0 mL History Of Immunizations Name Date Admin Mfg Name Mfg Code Trade Name Lot# Route Inj Vis Given Vis Pub CVX Pneumococcal 04/02/2017 [employer] 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 Apr 11 2018 12:01PM Payers Insurance Name Company Name Plan Name Plan Number Policy Number Policy Group Number Start Date Medicare Part B Medicare [facility] [id number] N/A BCBS [facility] [id number] N/A Medicare RH Medicare RHC [id number] N/A Medicare Part A Medicare - Lab/Xray [id number] N/A Medicare RHC Medicare RHC [id number] Friday, January 30, 2015 Medicare Part B Medicare Of [place] [id number] N/A History of Encounters Visit Date Visit Type Provider 03/08/2018 Office visit Hemant Dallas DO 02/25/2018 Office visit Vel Abbott MD 01/26/2018 Office visit Anton Laws MD 01/12/2018 Office visit Vel Abbott MD 01/11/2018 Office visit Hemant Dallas DO 12/20/2017 Office visit Tito Adkins MD 12/16/2017 Surgery Tito Adkins MD 12/07/2017 Office visit Tito Adkins MD 12/02/2017 Office visit Vel Abbott MD 11/26/2017 Hospital Naomi Alejandro MD 11/25/2017 [facility] Shahbaz Emerson MD 11/24/2017 Surgery Vel Abbott MD 11/24/2017 [facility] Carroll Chris DO 11/23/2017 Office visit Tito Adkins MD 11/16/2017 [facility] Naomi Alejandro MD 11/11/2017 Office visit [...] Office visit Dr. Susie Sims DO 11/05/2016 [facility] Naomi Alejandro MD 11/03/[address] Susie Sims DO 10/08/2016 Office visit Neris Rinaldi APRN 09/15/[address] Susie Sims DO 09/15/2016 Procedures Carroll Bouman DO 08/31/2016 Procedures Carroll Bouman DO 08/28/[address] Susie Sims DO 08/26/2016 Office visit Tiffany Mccoy KICK PRESS SETTER 08/20/2016 Office visit Tiffany Mccoy KICK PRESS SETTER 08/19/2016 Office visit Carroll Chris DO 08/13/[address] Padma Humphrey MD 08/04/[address] Susie Sims DO 08/04/2016 Procedures Carroll Bouman DO 07/22/2016 Procedures Carroll Bouman DO 07/15/2016 Office visit Chris Reyes KICK PRESS SETTER 06/13/2016 Office visit Shirin IRBY 03/11/2016 [facility] Naoim Alejandro MD
--- OUTSIDE RECORDS SUMMARY | 2018-10-05 11:28 | XMS REPORT ---
Author Author Hemant Dallas [facility] Address [address] [place], [place] [address] Care Team Providers Care Floor Finisher Helper Name Role Phone Hemant Dallas PCP Allergies and Adverse Reactions Name Reaction Notes codeine sulfate nausea/abd pain Epinephrine fast heart beat Decongestant nausea Eanuvia made her sick Actos made her sick [...] [employer] MSD PNEUMOVAX 23 [id number] Intramuscular Left Arm 04/09/2017 11/23/2014 33 History [...] Abdominal Pain, lower Nov 23 2017 2:16PM Payers Insurance Name Company Name Plan Name Plan Number Policy Number Policy Group Number Start Date Medicare Part B Medicare Of [place] [id number] N/A [id number] N/A Medicare RHC Medicare RHC [id number] N/A Medicare Part A Medicare - Lab/Xray [id number] N/A Medicare RHC Medicare RHC [id number] Wednesday, January 30, 2015 Medicare Part B Medicare Of [place] [id number] N/A History of Encounters Visit Date Visit [...] Office visit Dr. Susie Sims DO 11/05/2016 [facility] Naomi Alejandro MD 11/03/[address] Susie Sims DO 10/08/2016 Office visit Neris Rinaldi SENIOR ADULTS DIRECTOR 09/15/[address] Susie Sims DO 09/15/2016 Procedures Carroll Chris DO 08/31/2016 Procedures Carroll Chris DO 08/28/[address] Susie Sims DO 08/26/2016 Office visit Tiffany Mccoy SENIOR ADULTS DIRECTOR 08/20/2016 Office visit Tiffany Mccoy SENIOR ADULTS DIRECTOR 08/19/2016 Office visit Carroll Chris DO 08/13/[address] Padma Humphrey MD 08/04/[address] Susie Sims DO 08/04/2016 Procedures Carroll Chris DO 07/22/2016 Procedures Carroll Chris DO 07/15/2016 Office visit Chris Reyes APRN 06/13/2016 Office visit Shirin IRBY 03/11/2016 [facility] Naomi Alejandro MD
--- OUTSIDE RECORDS SUMMARY | 2018-10-05 11:29 | XMS REPORT ---
Author Author Hemant Dallas [facility] Address [address] [place], [place] [address] Care Team Providers Care Vice President Safety Name Role Phone Hemant Dallas PCP Allergies [...] [employer] MSD PNEUMOVAX 23 [id number] Intramuscular Left Arm 04/09/2017 11/23/2014 33 History [...] 8:33AM Urinary Retention Mar 08 2018 8:33AM Payers Insurance Name Company Name Plan Name Plan Number Policy Number Policy Group Number Start Date Medicare Part B Medicare Of [place] [id number] N/A BCBS [facility] [id number] N/A Medicare RHC Medicare RHC [id number] N/A Medicare Part A Medicare - Lab/Xray [id number] N/A Medicare RHC Medicare RHC [id number] Friday, January 30, 2015 Medicare Part B Medicare Of [place] [id number] N/A History of Encounters Visit Date Visit [...] 11/23/2017 Office visit Tito Adkins MD 11/16/2017 [facility] Naomi Alejandro MD 11/11/2017 Office [...] Office visit Dr. Susie Sims DO 11/05/2016 [facility] Naomi Alejandro MD 11/03/[address] Susie Sims DO 10/08/2016 Office visit Neris Rinaldi ABE TEACHER 09/15/[address] Susie Sims DO 09/15/2016 Procedures Carroll Chris DO 08/31/2016 Procedures Carroll Chris DO 08/28/[address] Susie Sims DO 08/26/2016 Office visit Tiffany Mccoy ABE TEACHER 08/20/2016 Office visit Tiffany Mccoy ABE TEACHER 08/19/2016 Office visit Carroll Chris DO 08/13/[address] Padma Humphrey MD 08/04/[address] Susie Sims DO 08/04/2016 Procedures Carroll Chris DO 07/22/2016 Procedures Carroll Chris DO 07/15/2016 Office visit Chris Reyes APRN 06/13/2016 Office visit Shirin IRBY 03/11/2016 [facility] Naomi Alejandro MD
[2018-10-05] MEDS ORDERED: HURRICAINE EXT TUBE (BENZOCAINE) XX PRN (11:30)
[2018-10-05] MEDS ORDERED: LACTATED RINGERS 1,000 ML IV STA (11:30)
--- OUTSIDE RECORDS SUMMARY | 2018-10-05 11:30 | XMS REPORT ---
Author Author Hemant Dallas [facility] Address [address] [place], [place] [address] Care Team Providers Care Mexican Food Machine Tender Name Role Phone Hemant Dallas PCP Allergies [...] W/MICRO C&S IF IND 11/23/2017 12:00 AM US BREAST COMP; RT 03/08/2018 12:00 AM cystocele 07/09/2016 2:00 PM cystocele [...] only 3 times per week thereafter (MWF) pantoprazole 40 mg oral tablet,delayed release (DR/EC) take 1 tablet ( 40 mg) by oral route once daily Lantus [...] TAKE ONE TABLET BY MOUTH ONCE DAILY Name Start Date Expiration Date SIG Comments [...] 01/26/2018 12:00 AM URINE BACTERIA CULTURE Reviewed Results Summary Date and Description Results [...] [employer] MSD PNEUMOVAX 23 [id number] Intramuscular Left Arm 04/09/2017 11/23/2014 33 History [...] Date Medicare Part B Medicare Of [place] [id number] N/A BCBS [facility] [id number] N/A Medicare RHC Medicare RHC [id number] N/A Medicare Part A Medicare - Lab/Xray [id number] N/A Medicare RHC Medicare RHC [id number] Friday, January 30, 2015 Medicare Part B Medicare Of [place] [id number] N/A History of Encounters Visit Date Visit Type Provider 03/08/2018 Office visit Hemant Dallas DO 02/25/2018 Office visit Vel Abbott MD 01/26/2018 Office visit Anton Laws MD 01/12/2018 Office visit Vel Abbott MD 01/11/2018 Office visit Hemant Reynoldshite DO 12/20/2017 Office visit Tito Adkins MD 12/16/2017 Surgery Tito Adkins MD 12/07/2017 Office visit Tito Adkins MD 12/02/2017 Office visit Vel Abbott MD 11/26/2017 Hospital Naomi Alejandro MD 11/25/2017 [facility] Shahbaz Emerson MD 11/24/2017 Surgery Vel Abbott MD 11/24/2017 Hospital Carroll Chris DO 11/23/2017 Office visit Tito Adkins MD 11/16/2017 [facility] Naomi Alejandro MD 11/11/2017 Office visit [...] Office visit Dr. Susie Sims DO 11/05/2016 [facility] Naomi Alejandro MD 11/03/[address] Susie Sims DO 10/08/2016 Office visit Neris Rinaldi ACCOUNTING PROFESSOR 09/15/[address] Susie Sims DO 09/15/2016 Procedures Carroll Chris DO 08/31/2016 Procedures Carroll Chris DO 08/28/[address] Susie Sims DO 08/26/2016 Office visit Tiffany Mccoy ACCOUNTING PROFESSOR 08/20/2016 Office visit Tiffany Mccoy ACCOUNTING PROFESSOR 08/19/2016 Office visit Carroll Chris DO 08/13/[address] Padma Humphrey MD 08/04/[address] Susie Sims DO 08/04/2016 Procedures Carroll Chris DO 07/22/2016 Procedures Carroll Chris DO 07/15/2016 Office visit Chris Reyes APRN 06/13/2016 Office visit Shirin IRBY 03/11/2016 [facility] Naomi Alejandro MD
--- OUTSIDE RECORDS SUMMARY | 2018-10-05 11:31 | XMS REPORT ---
Author Author Vel Abbott Organization [facility] Address [address] [place], [place] [id number] Care Team Providers Care Furniture Restorer Name Role Phone Vel Abbott PCP Allergies and Adverse Reactions Name Reaction Notes codeine sulfate nausea/abd pain Epinephrine fast heart beat Decongestant nausea Januvia made her sick Actos made her sick Victoza pancreatitis lisinopril Omeprazole Plan of Treatment Planned Activity Comments Planned [...] HC BMI BSA BMI Percentile O2 Sat(%) 02/25/2018 10:41:00 AM 135 mmHg 85 mmHg [...] [employer] MSD PNEUMOVAX 23 [id number] Intramuscular Left Arm 04/09/2017 11/23/2014 33 History [...] without uterine prolapse Feb 25 2018 10:43AM Payers Insurance Name Company Name Plan Name Plan Number Policy Number Policy Group Number Start Date Medicare Part B Medicare Of [place] [id number] N/A [id number] N/A Medicare RHC Medicare RHC [id number] N/A Medicare Part A Medicare - Lab/Xray [id number] N/A Medicare RHC Medicare RHC [id number] Friday, January 30, 2015 Medicare Part B Medicare [place] [id number] N/A History of Encounters Visit Date Visit Type Provider 02/25/2018 Office visit Vel Abbott MD 01/26/2018 Office visit Anton Laws MD 01/12/2018 Office visit Vel Abbott MD 01/11/2018 Office visit Hemant Dallas DO 12/20/2017 Office visit Tito Adkins MD 12/16/2017 Surgery Tito Adkins MD 12/07/2017 Office visit Tito Adkins MD 12/02/2017 Office visit Vel Abbott MD 11/26/2017 [facility] Naomi Alejandro MD 11/25/2017 [facility] Shahbaz Emerson MD 11/24/2017 Surgery Vel Abbott MD 11/24/2017 [facility] Carroll Chris DO 11/23/2017 Office visit Tito Adkins MD 11/16/2017 [facility] Naomi Alejandro MD 11/11/[address] [...] Office visit Dr. Susie Sims DO 11/05/2016 [facility] Naomi Alejandro MD 11/03/[address] Susie Sims DO 10/08/2016 Office visit Neris Rinaldi LUNCHROOM WORKER 09/15/[address] Susie Sims DO 09/15/2016 Procedures Carroll Bonicole DO 08/31/2016 Procedures Carroll Bouman DO 08/28/[address] Susie Sims DO 08/26/2016 Office visit Tiffany Mccoy LUNCHROOM WORKER 08/20/2016 Office visit Tiffany Mccoy LUNCHROOM WORKER 08/19/2016 Office visit Carroll Chris DO 08/13/[address] Padma Humphrey MD 08/04/[address] Susie Sims DO 08/04/2016 Procedures Carroll Bonicole DO 07/22/2016 Procedures Carroll Bouman DO 07/15/2016 Office visit Chris [place] LUNCHROOM WORKER 06/13/2016 Office visit Shirin IRBY 03/11/2016 [facility] Naomi Alejandro MD
--- OUTSIDE RECORDS SUMMARY | 2018-10-05 11:32 | XMS REPORT ---
Author Author Vel Abbott Organization [facility] Address [address] [place], [place] [id number] Care Team Providers Care Perfect Binder Operator Name Role Phone Vel Abbott PCP Allergies [...] per day before meals for 90 days Name Start Date Expiration [...] each nostril by intranasal route once daily losartan 100 mg oral tablet 08/04/2017 08/04/2017 TAKE ONE TABLET BY MOUTH ONCE DAILY aspirin 81 mg oral tablet,delayed release (DR/EC) [...] [employer] MSD PNEUMOVAX 23 [id number] Intramuscular Left Arm 04/09/2017 11/23/2014 33 History [...] Date Medicare Part B Medicare [place] [id number] N/A BCBS Bcbs [facility] [id number] N/A Medicare RHC Medicare RHC [id number] N/A Medicare Part A Medicare - Lab/Xray [id number] N/A Medicare RHC Medicare RHC [id number] Friday, January 30, 2015 Medicare Part B Medicare [place] [id number] N/A History of Encounters Visit Date Visit Type Provider 02/25/2018 Office visit Vle Abbott MD 01/26/2018 Office visit Anton Laws MD 01/12/2018 Office visit Vel Abbott MD 01/11/2018 Office visit Hemant Dallas DO 12/20/2017 Office visit Tito Adkins MD 12/16/2017 Surgery Tito Adkins MD 12/07/2017 Office visit Tito Adkins MD 12/02/2017 Office visit Vel Abbott MD 11/26/2017 [facility] Naomi Alejandro MD 11/25/2017 [facility] Shahbaz Emerson MD 11/24/2017 Surgery Vel Abbott MD 11/24/2017 [facility] Carroll Chris DO 11/23/2017 Office [...] Sims DO 04/13/[address] Susie Sism DO 02/03/[address] Susie Sims DO 01/13/[address] Susie Sims DO 12/02/[address] Susie Sims DO 11/05/2016 [facility] Naomi Alejandro MD 11/03/[address] Susie Sims DO 10/08/2016 Office visit Neris Rinaldi PADDER 09/15/[address] Susie Sims DO 09/15/2016 Procedures Carroll Bonicole DO 08/31/2016 Procedures Carroll Bouman DO 08/28/[address] Susie Sims DO 08/26/2016 Office visit Tiffany Mccoy PADDER 08/20/2016 Office visit Tiffany Mccoy PADDER 08/19/2016 Office visit Carroll Chris DO 08/13/[address] Padma Humphrey MD 08/04/[address] Susie Sims DO 08/04/2016 Procedures Carroll Bouman DO 07/22/2016 Procedures Carroll Bouman DO 07/15/2016 Office visit Chris [place] PADDER 06/13/2016 Office visit Shirin IRBY 03/11/2016 [facility] Naomi Alejandro MD
--- OUTSIDE RECORDS SUMMARY | 2018-10-05 11:33 | XMS REPORT ---
Author Author Vel Abbott Organization [facility] Address [address] [place], [place] [id number] Care Team Providers Care Bicycle Designer Name Role Phone Vel Abbott PCP Allergies [...] oral route once daily for 90 days Name Start Date Expiration [...] [employer] MSD PNEUMOVAX 23 [id number] Intramuscular Left Arm 04/09/2017 11/23/2014 33 History [...] Date Medicare Part B Medicare [place] [id number] N/A [id number] N/A Medicare RHC Medicare RH [id number] N/A Medicare Part A Medicare - Lab/Xray [id number] N/A Medicare RHC Medicare RHC [id number] Friday, January 30, 2015 Medicare Part B Medicare Of [place] [id number] N/A History of Encounters Visit Date Visit Type Provider 02/25/2018 Office visit Vel Abbott MD 01/26/2018 Office visit Anton Laws MD 01/12/2018 Office visit Vel Abbott MD 01/11/2018 Office visit Hemant Dallas DO 12/20/2017 Office visit Tito Adkins MD 12/16/2017 Surgery Tito Adkins MD 12/07/2017 Office visit Tito Adkins MD 12/02/2017 Office visit Vel Abbott MD 11/26/2017 Hospital Naomi Alejandro MD 11/25/2017 Hospital Shhabaz Emerson MD 11/24/2017 Surgery Vel Abbott MD 11/24/2017 [facility] Carroll Chris DO 11/23/2017 Office visit Tito [...] Sims DO 10/08/2016 Office visit Neris Rinaldi DEPUTY SHERIFF CHIEF 09/15/[address] Susie Sims DO 09/15/2016 Procedures Carroll Chris DO 08/31/2016 Procedures Carroll Chris DO 08/28/[address] Susie Sims DO 08/26/2016 Office visit Tiffany Mccoy DEPUTY SHERIFF CHIEF 08/20/2016 Office visit Tiffany Mccoy DEPUTY SHERIFF CHIEF 08/19/2016 Office visit Carroll Chris DO 08/13/[address] Padma Humphrey MD 08/04/[address] Susie Sims DO 08/04/2016 Procedures Carroll Chris DO 07/22/2016 Procedures Carroll Aries DO 07/15/2016 Office visit Chris [place] DEPUTY SHERIFF CHIEF 06/13/2016 Office visit Shirin IRBY 03/11/2016 Hospital Naomi Alejandro MD
--- OUTSIDE RECORDS SUMMARY | 2018-10-05 11:34 | XMS REPORT ---
Author Author Anotn Laws Organization [facility] Address [address] [place] [id number] Care Team Providers Care Flight Operations Coordinator Name Role Phone Anton Laws PCP Allergies and Adverse Reactions Name Reaction [...] HC BMI BSA BMI Percentile O2 Sat(%) 01/26/2018 1:29:00 PM 148 mmHg 60 mmHg 83 bpm 98.1 F 190 lbs 61 in 35.8998 kg/m 1.9259 m 01/12/2018 9:30:00 AM 134 mmHg 72 mmHg 68 bpm 19 rpm 98.2 F 184.5 lbs 61 in 34.86 kg/m2 1.90 m2 95 % 01/11/2018 8:01:00 AM 130 mmHg 78 mmHg 70 bpm 20 rpm 99.1 F 187 lbs 61 in 35.333 kg/m 1.9107 m 96 % 12/20/2017 10:59:00 AM 142 mmHg 70 mmHg 75 bpm 20 rpm 98.6 F 184 lbs 61 in 34.77 kg/m2 1.90 m2 97 % 12/07/2017 2:02:00 PM 132 mmHg 82 mmHg 81 bpm 16 rpm 98.6 F 182 lbs 61 in 34.3882 kg/m 1.885 m 12/02/2017 12:51:00 PM 128 mmHg 70 mmHg [...] rpm 99 F 188 lbs 62 in 34.3853 kg/m 1.93 m2 94 % Social History Name [...] [employer] MSD PNEUMOVAX 23 [id number] Intramuscular Left Arm 04/09/2017 11/23/2014 33 History [...] Chronic hypertrophic gastritis Dec 20 2017 11:00AM Payers Insurance Name Company Name Plan Name Plan Number Policy Number Policy Group Number Start Date Medicare Part B Medicare [facility] [id number] N/A [id number] N/A Medicare RHC Medicare RHC [id number] N/A Medicare Part A Medicare - Lab/Xray [id number] N/A History of Encounters Visit Date Visit Type Provider 01/26/2018 Office visit Anton Laws MD 01/12/2018 Office visit Vel Abbott MD 01/11/2018 Office visit Hemant Dallas DO 12/20/2017 Office visit Tito Adkins MD 12/16/2017 Surgery Tito Adkins MD 12/07/2017 Office visit Tito Adkins MD 12/02/2017 Office visit Vel Abbott MD 11/26/2017 Hospital Naomi Alejandro MD 11/25/2017 [facility] Shahbaz Emerson MD 11/24/2017 Surgery Vel Abbott MD 11/24/2017 Hospital Carroll Chris DO 11/23/2017 Office visit iTto Adkins MD 11/16/2017 [facility] Naomi Alejandro MD 11/11/2017 Office visit [...] Office visit Dr. Susie Sims DO 11/05/2016 [facility] Naomi Alejandro MD 11/03/[address] Susie Sims DO 10/08/2016 Office visit Neris Rinaldi BRANCH RENTAL MANAGER 09/15/[address] Susie Sims DO 09/15/2016 Procedures Carroll Bouman DO 08/31/2016 Procedures Carroll Bouman DO 08/28/[address] Susie Sims DO 08/26/2016 Office visit Tiffany Mccoy BRANCH RENTAL MANAGER 08/20/2016 Office visit Tiffany Mccoy BRANCH RENTAL MANAGER 08/19/2016 Office visit Carroll Chris DO 08/13/[address] Padma Humphrey MD 08/04/[address] Susie Sims DO 08/04/2016 Procedures Carroll Bouman DO 07/22/2016 Procedures Carroll Bouman DO 07/15/2016 Office visit Chris [place] BRANCH RENTAL MANAGER 06/13/2016 Office visit Shirin IRBY 03/11/2016 [facility] Naomi Alejandro MD
--- OUTSIDE RECORDS SUMMARY | 2018-10-05 11:35 | XMS REPORT ---
Author Author Anton Laws Organization [facility] Address [address] [place], [place] [id number] Care Team Providers Care Collections Professional Name Role Phone Anton Laws PCP Unavailable Allergies and Adverse Reactions Name Reaction Notes codeine sulfate nausea/abd pain Epinephrine fast heart beat Decongestant nausea Eanuvia made her sick Actos made her sick Victoza pancreatitis lisinopril Plan of Treatment Planned Activity Comments Planned Date Planned Time Plan/Goal HEMOGLOBIN A1C 02/03/2017 12:00 AM URINALYSIS ROUTINE C&S IF IND 06/21/2017 12:00 AM cystocele 07/09/2016 2:00 PM cystocele Medications Active Name Start Date Estimated Completion Date SIG Comments Tylenol Extra Strength 500 mg oral tablet take 1 tablet (500 mg) by oral route every 4 hours as needed omeprazole 20 mg oral capsule,delayed release(DR/EC) take 1 capsule (20 mg) by oral route twice daily before a meal ondansetron 4 mg oral tablet,disintegrating dissolve 1 tablet by oral route As needed triamcinolone acetonide 0.1 % topical cream apply to affected area(s) by topical route As needed multivitamin oral tablet take 1 tablet by oral route daily Qualaquin 324 mg oral capsule take 1 capsule by oral route once daily Novolog Flexpen 100 unit/mL subcutaneous insulin pen 09/22/2016 12/16/2017 inject 10 units by subcutaneous route with each meal and prn sliding scale Zyrtec 10 mg oral tablet 10/08/2016 take 1 tablet (10 mg) by oral route once daily Levemir FlexTouch 100 unit/mL (3 mL) subcutaneous insulin pen 11/24/20162017 inject 30 units in morning and 30 units in evening by subcutaneous route per prescribers instructions Uses 5400 units in 3 months equals 18 pens in a 3 month supply Novolog Flexpen 100 unit/mL subcutaneous insulin pen 11/24/2016 02/17/2018 inject 10- 17 units by subcutaneous route with each meal and prn sliding scale. uses 4500 units in 3 month period. Needs 3 month supply. losartan 100 mg oral tablet 02/08/2017 08/07/2017 take 1 tablet (100 mg) by oral route once daily for 90 days losartan 100 mg oral tablet 02/10/2017 TAKE ONE TABLET BY MOUTH ONCE DAILY glipizide 10 mg oral tablet 04/20/2017 take 1 tablet (10 mg) by oral route 2 times per day before meals for 30 days Flonase Allergy Relief 50 mcg/actuation nasal spray,suspension 05/06/2017 spray 1 - 2 sprays (50 - 100 mcg) in each nostril by intranasal route once daily pravastatin 20 mg oral tablet 05/13/2017 take 1 tablet (20 mg) by oral route once daily for 90 days Aspir-81 81 mg oral tablet,delayed release (DR/EC) 06/21/2017 take 1 tablet (81 mg) by oral [...] 2 times per day for 14 days Discontinued Name Start Date Discontinued Date SIG Comments Novolog 100 unit/mL subcutaneous solution 09/09/2016 inject by subcutaneous route 8 units at breakfast, 10 and 8 at supper, and sliding scale PRN aspirin 81 mg oral tablet,delayed release (DR/EC) 03/24/2017 take 1 tablet (81 mg) by oral route once daily Lantus 100 unit/mL subcutaneous solution 08/13/2016 inject [...] daily with the morning and evening meals. metformin 500 mg oral tablet extended release 24 hr 10/06/2016 11/03/2016 take 1 tablet (500 mg) by oral route once daily with the morning and evening meals. Pt c/o pain, and flu-like symptoms. ProAir HFA 90 mcg/actuation inhalation HFA aerosol inhaler 10/08/20162016 inhale 1 puff (90 mcg) by inhalation route every 4-6 hours as needed Aspir-81 81 mg oral tablet,delayed release (DR/EC) 03/24/2017 take 1 tablet (81 mg) by oral route once daily for 90 days Problem List Description Status Onset Hypertension Active Actinic Keratosis Active 07/22/2016 Actinic Keratosis Active 07/23/2016 Nevus Active 07/23/2016 Actinic Keratosis Active 07/23/2016 Nasal lesion Active 09/02/2016 Vital Signs Date Time BP-Sys(mm[Hg] BP-Ashley(mm[Hg]) HR(bpm) RR(rpm) Temp WT HT HC BMI BSA BMI Percentile O2 Sat(%) 06/21/2017 2:08:00 PM 145 mmHg 72 mmHg 78 bpm 98 F 193 lbs 62 in 35.30 kg/m2 1.96 m2 06/14/2017 2:51:00 PM 161 mmHg 88 mmHg 101 bpm 97.8 F 191.25 lbs 62 in 34.9797 kg/m 1.948 m 05/05/2017 8:45:00 AM 143 mmHg 88 mmHg 72 bpm 18 rpm 97.6 F 192 lbs 62 in 35.12 kg/m2 1.95 m2 97 % 04/13/2017 8:11:00 AM 150 mmHg 88 mmHg 68 bpm 18 rpm 97.7 F 187.125 lbs 62 in 34.2253 kg/m 1.9269 m 96 % 02/03/2017 8:12:00 AM 156 mmHg 80 mmHg 74 bpm 18 rpm 98 F 187 lbs 62 in 34.20 kg/m2 1.93 m2 97 % 01/13/2017 10:33:00 AM 126 mmHg 80 mmHg 69 bpm 18 rpm 98 F 187.125 lbs 62 in 34.2253 kg/m 1.9269 m 96 % 12/02/2016 1:59:00 PM 119 mmHg 59 mmHg 72 bpm 18 rpm 98 F 185 lbs 62 in 33.84 kg/m2 1.92 m2 95 % 11/03/2016 1:58:00 PM 146 mmHg 72 mmHg 78 bpm 17 rpm 97.6 F 186.2 lbs 62 in 34.0561 kg/m 1.9221 m 97 % 10/08/2016 1:48:00 PM 132 mmHg 86 mmHg 96 bpm 18 rpm 98.9 F 183.5 lbs 62 in 33.56 kg/m2 1.91 m2 93 % 09/15/2016 3:20:00 PM 138 mmHg 80 mmHg 78 bpm 18 rpm 97.7 F 186 lbs 62 in 34.0195 kg/m 1.9211 m 96 % 09/15/2016 11:35:00 AM 132 mmHg 89 mmHg 77 bpm 20 rpm 97.2 F 209 lbs 62 in 38.23 kg/m2 2.04 m2 08/31/2016 2:49:00 PM 132 mmHg 89 mmHg 77 bpm 20 rpm 97.2 F 209 lbs 62 in 38.2262 kg/m 2.0364 m 08/28/2016 9:36:00 AM 132 mmHg 89 mmHg 77 bpm 97.2 F 209.25 lbs 62 in 38.27 kg/m2 2.04 m2 95 % 08/26/2016 10:43:00 AM 143 mmHg 65 mmHg 80 bpm 97.9 F 187 lbs 62 in 34.2024 kg/m 1.9263 m 08/20/2016 10:06:00 AM 172 mmHg 70 mmHg 79 bpm 98.6 F 182 lbs 62 in 33.29 kg/m2 1.90 m2 08/19/2016 12:56:00 PM 157 mmHg 81 mmHg 79 bpm 20 rpm 97.6 F 186 lbs 62 in 34.0195 kg/m 1.9211 m 08/13/2016 1:56:00 PM 151 mmHg 82 mmHg 81 bpm 97.8 F 187.375 lbs 61 in 35.40 kg/m2 1.91 m2 08/04/2016 9:02:00 AM 132 mmHg 88 mmHg 74 bpm 19 rpm 97.4 F 186 lbs 62 in 34.0195 kg/m 1.9211 m 98 % 08/04/2016 8:32:00 AM 156 mmHg 84 mmHg 77 bpm 20 rpm 97.4 F 186.5 lbs 62 in 34.11 kg/m2 1.92 m2 07/22/2016 3:09:00 PM 141 mmHg 74 mmHg 73 bpm 20 rpm 97.2 F 186 lbs 62 in 34.0195 kg/m 1.9211 m 07/15/2016 5:50:00 PM 136 mmHg 74 mmHg 83 bpm 18 rpm 98.4 F 186.25 lbs 62 in 34.07 kg/m2 1.92 m2 93 % 06/13/2016 10:39:00 AM 132 mmHg 84 mmHg 76 bpm 16 rpm 99 F 188 lbs 62 in 34.3853 kg/m 1.9314 m 94 % Social History Name Description Comments [...] 04/13/2017 12:00 AM GLYCOSYLATED HEMOGLOBIN TEST Reviewed Results [...] AA 101 eGFR >60 mL/min/1.73meGFR AA* >60 History Of Immunizations Name Date Admin Mfg Name Mfg Code Trade Name Lot# Route Inj Vis Given Vis Pub CVX Pneumococcal 04/02/2017 [employer] MSD Pneumovax 23 [id number] Intramuscular Left Arm 04/09/2017 11/23/2014 33 History of Past Illness Name Date of Onset Comments Hypertension GERD (gastroesophageal reflux disease) Diabetes mellitus, Type 2 Spinal stenosis, Cervical region Hypercholesteremia Actinic Keratosis 07/23/2016 Nevus 07/23/2016 Pancreatitis, acute Nasal lesion 09/02/2016 Acute cystitis with hematuria Jun 13 2016 [...] 2:13PM Urinary frequency Jun 21 2017 2:13PM Payers Insurance Name Company Name Plan Name Plan Number Policy Number Policy Group Number Start Date Medicare RHC Medicare RHC [id number] N/A BCBS Bcbs [facility] [id number] N/A Medicare Part B Medicare Of [place] [id number] N/A Medicare Part A Medicare - Lab/Xray [id number] N/A History of Encounters Visit Date Visit Type Provider 06/21/2017 Office visit Anton Laws MD 06/14/[address] Padma Humphrey MD 05/05/[address] Susie Sims DO 04/13/[address] Susie Sims DO 02/03/[address] Susie Sims DO 01/13/[address] Susie Sims DO 12/02/[address] Susie Sims DO 11/05/2016 [facility] Naomi Alejandro MD 11/03/[address] Susie Sims DO 10/08/2016 Office visit Neris Rinaldi POWER AND RECOVERY SUPERVISOR 09/15/[address] Susie Sims DO 09/15/2016 Procedures Carroll Chris DO 08/31/2016 Procedures Carroll Chris DO 08/28/[address] Susie Sims DO 08/26/2016 Office visit Tiffany Mccoy POWER AND RECOVERY SUPERVISOR 08/20/2016 Office visit Tiffany Mccoy POWER AND RECOVERY SUPERVISOR 08/19/2016 Office visit Carroll Chris DO 08/13/[address] Padma Humphrey MD 08/04/[address] Susie Sims DO 08/04/2016 Procedures Carroll Chris DO 07/22/2016 Procedures Carroll Aries DO 07/15/2016 Office visit Chris [place] POWER AND RECOVERY SUPERVISOR 06/13/2016 Office visit Shirin IRBY 03/11/2016 [facility] Naomi Alejandro MD
--- OUTSIDE RECORDS SUMMARY | 2018-10-05 11:36 | XMS REPORT ---
Author Author Anton Laws Organization [facility] Address [address] [place] [id number] Care Team Providers Care Ticket Maker Name Role Phone Anton Laws PCP Allergies [...] [employer] MSD PNEUMOVAX 23 [id number] Intramuscular Left Arm 04/09/2017 11/23/2014 33 History [...] 1:37PM Urethral irritation Jan 26 2018 1:37PM Payers Insurance Name Company Name Plan Name Plan Number Policy Number Policy Group Number Start Date Medicare Part B Medicare [facility] [id number] N/A BCBS Bcbs [facility] [id number] N/A Medicare RHC Medicare RHC [id number] N/A Medicare Part A Medicare - Lab/Xray [id number] N/A History of Encounters Visit Date Visit Type Provider 01/26/2018 Office visit Anton Laws MD 01/12/2018 Office visit Vel Abbott MD 01/11/2018 Office visit Hemant Dallas DO 12/20/2017 Office visit Tito Adkins MD 12/16/2017 Surgery Tito Adkins MD 12/07/2017 Office visit Tito Adkins MD 12/02/2017 Office visit Vel Abbott MD 11/26/2017 [facility] Naomi Alejandro MD 11/25/2017 [facility] Shahbaz Emerson MD 11/24/2017 Surgery Vel Abbott MD 11/24/2017 [facility] Carroll Chris DO 11/23/2017 Office visit Tito Adkins MD 11/16/2017 [facility] Naomi Alejandro MD 11/11/[address] [...] Office visit Dr. Susie Sims DO 11/05/2016 [facility] Naomi Alejandro MD 11/03/[address] Susie Sims DO 10/08/2016 Office visit Neris Rinaldi SWEET PICKLED FRUIT MAKER 09/15/[address] Susie Sims DO 09/15/2016 Procedures Carroll Bonicole DO 08/31/2016 Procedures Carroll Bouman DO 08/28/[address] Susie Sims DO 08/26/2016 Office visit Tiffany Mccoy SWEET PICKLED FRUIT MAKER 08/20/2016 Office visit Tiffany Mccoy SWEET PICKLED FRUIT MAKER 08/19/2016 Office visit Carroll Chris DO 08/13/[address] Padma Humphrey MD 08/04/[address] Susie Sims DO 08/04/2016 Procedures Carroll Bonicole DO 07/22/2016 Procedures Carroll Bouman DO 07/15/2016 Office visit Chris [place] SWEET PICKLED FRUIT MAKER 06/13/2016 Office visit Shirin IBRY 03/11/2016 [facility] Naomi Alejandro MD
--- OUTSIDE RECORDS SUMMARY | 2018-10-05 11:37 | XMS REPORT ---
Author Author Vel Abbott Organization [facility] Address [address] [place] [id number] Care Team Providers Care Welfare Case Worker Name Role Phone Vel Abbott PCP Allergies [...] (10 mg) by oral route once daily Aspir-81 81 mg oral tablet,delayed release (DR/EC) 06/21/2017 take 1 tablet (81 mg) by oral route once daily for 90 days ondansetron 4 mg oral tablet,disintegrating 07/07/2017 dissolve 1 tablet by oral route As needed for 30 days Premarin 0.625 mg/gram vaginal cream 10/21/2017 insert 0.5 gram by vaginal daily for 3 weeks, then only 3 times per week thereafter (MWF) pravastatin 20 mg oral tablet 11/18/2017 take 1 tablet (20 mg) by oral route once daily for 90 days pantoprazole 40 mg oral tablet,delayed release (DR/EC) [...] each meal No rx given.Dose adjusted 01/11/18 Name Start Date Expiration Date SIG Comments [...] HC BMI BSA BMI Percentile O2 Sat(%) 01/12/2018 9:30:00 AM 134 mmHg 72 mmHg [...] rpm 98.4 F 188 lbs 61 in 35.5219 kg/m 1.9158 m 94 % 11/11/2017 9:00:00 AM 122 mmHg 78 mmHg 76 bpm 18 rpm 98.2 F 189.375 lbs 61 in 35.78 kg/m2 1.92 m2 96 % 10/21/2017 10:41:00 AM 140 mmHg 82 mmHg 75 bpm 18 rpm 97.4 F 193.375 lbs 61 in 36.5375 kg/m 1.943 m 96 % 10/06/2017 10:04:00 AM 144 mmHg 88 mmHg 75 bpm 18 rpm 96.7 F 196.5 lbs 62 in 35.94 kg/m2 1.97 m2 96 % 07/07/2017 10:06:00 AM 115 mmHg 78 mmHg 78 bpm 18 rpm 97.9 F 193 lbs 62 in 35.2998 kg/m 1.9569 m 96 % 06/21/2017 2:08:00 PM 145 mmHg [...] 12:00 AM X-RAY EXAM SERIES ABDOMEN Reviewed Results Summary Date and Description Results [...] [employer] MSD PNEUMOVAX 23 [id number] Intramuscular Left Arm 04/09/2017 11/23/2014 33 History [...] Incomplete bladder emptying Dec 02 2017 12:54PM Payers Insurance Name Company Name Plan Name Plan Number Policy Number Policy Group Number Start Date Medicare Part B Medicare [facility] [id number] N/A BCBS Bcbs [facility] [id number] N/A Medicare RHC Medicare RHC [id number] N/A Medicare Part A Medicare - Lab/Xray [id number] N/A History of Encounters Visit Date Visit Type Provider 01/12/2018 Office visit Vel Abbott MD 01/11/2018 Office visit Hemant Dallas DO 12/20/2017 Office visit Tito Adkins MD 12/16/2017 Surgery Tito Adkins MD 12/07/2017 Office visit Tito Adkins MD 12/02/2017 Office visit Vel Abbott MD 11/26/2017 Hospital Naomi Alejandro MD 11/25/2017 [facility] Shahbaz Emerson MD 11/24/2017 Surgery Vel Abbott MD 11/24/2017 [facility] Carroll Chris DO 11/23/2017 Office [...] Office visit Dr. Susie Sims DO 11/05/2016 [facility] Naoim Alejandro MD 11/03/[address] Susie Sims DO 10/08/2016 Office visit Neris Rinaldi APRN 09/15/[address] Susie Sims DO 09/15/2016 Procedures Carroll Bouman DO 08/31/2016 Procedures Carroll Bouman DO 08/28/[address] Susie Sims DO 08/26/2016 Office visit Tiffany Mccoy BATHING SUIT MAKER 08/20/2016 Office visit Tiffany Mccoy BATHING SUIT MAKER 08/19/2016 Office visit Carroll Chris DO 08/13/[address] Padma Humphrey MD 08/04/[address] Susie Sims DO 08/04/2016 Procedures Carroll Bouman DO 07/22/2016 Procedures Carroll Bouman DO 07/15/2016 Office visit Chris [place] BATHING SUIT MAKER 06/13/2016 Office visit Shirin IRBY 03/11/2016 [facility] Naomi Alejandro MD
--- OUTSIDE RECORDS SUMMARY | 2018-10-05 11:38 | XMS REPORT ---
Author Author Susie Sims [facility] Address [address] [place], [place] [id number] Care Team Providers Care Operating System Programmer Name Role Phone Susie Sims PCP Allergies and Adverse Reactions Name Reaction Notes codeine sulfate nausea/abd pain Epinephrine fast heart beat Decongestant nausea Eanuvia made her sick Actos made her sick Victoza pancreatitis lisinopril Plan of Treatment Planned Activity Comments Planned Date Planned Time Plan/Goal Lipid panel 11/03/2016 12:00 AM HEMOGLOBIN A1C 11/03/2016 12:00 AM cystocele 07/09/2016 2:00 PM cystocele Medications Active Name Start Date Estimated Completion Date SIG Comments Tylenol Extra Strength 500 mg oral tablet take 1 tablet (500 mg) by oral route every 4 hours as needed omeprazole 20 mg oral capsule,delayed release(DR/EC) take 1 capsule (20 mg) by oral route twice daily before a meal aspirin 81 mg oral tablet,delayed release (DR/EC) take 1 tablet (81 mg) by oral route once daily Calcium Citrate + D 315-200 mg-unit oral tablet 08/12/2016 02/08/2017 take 1 tablet by oral route 2 times a day for 30 days ondansetron 4 mg oral tablet,disintegrating dissolve 1 tablet by oral route As needed triamcinolone acetonide 0.1 % topical cream apply to affected area(s) by topical route As needed Vitamin D3 5,000 unit oral tablet take 1 tablet by oral route 2 times a day Vitamins B Complex oral tablet take 1 tablet by oral route daily vitamin A 8,000 unit oral capsule take 1 capsule (8,000 unit) by oral route once daily multivitamin oral tablet take 1 tablet by oral route daily Qualaquin 324 mg oral capsule take 1 capsule by oral route once daily losartan 100 mg oral tablet 09/02/2016 12/01/2016 take 1 tablet (100 mg) by oral route once daily for 90 days Novolog Flexpen 100 unit/mL subcutaneous insulin pen 09/22/2016 12/16/2017 inject 10 units by subcutaneous route with each meal and prn sliding scale Novolog Flexpen 100 unit/mL subcutaneous insulin pen 09/22/2016 12/16/2017 inject 10 units by subcutaneous route with each meal and prn sliding scale Levemir FlexTouch 100 unit/mL (3 mL) subcutaneous insulin pen 09/22/20162017 inject by subcutaneous route per prescriber's instructions. Insulin dosing requires individualization. for 90 days pravastatin 20 mg oral tablet 10/08/2016 10/03/2017 take 1 tablet (20 mg) by oral route once daily for 90 days ProAir HFA 90 mcg/actuation inhalation HFA aerosol inhaler 10/08/2016 inhale 1 puff (90 mcg) by inhalation route every 4-6 hours as needed Flonase Allergy Relief 50 mcg/actuation nasal spray,suspension 10/08/2016 spray 1 - 2 sprays (50 - 100 mcg) in each nostril by intranasal route once daily Zyrtec 10 mg oral tablet 10/08/2016 take 1 tablet (10 mg) by oral route once daily Name [...] with meals metformin 500 mg oral tablet Discontinued Name Start Date Discontinued Date SIG Comments Novolog 100 unit/mL subcutaneous solution 09/09/2016 inject by subcutaneous route 8 units at breakfast, 10 and 8 at supper, and sliding scale PRN Lantus 100 unit/mL subcutaneous solution 08/13/2016 inject by subcutaneous route 50 units at bedtime metformin 500 mg oral tablet 10/06/2016 take [...] meals. Pt c/o pain, and flu-like symptoms. Problem List Description Status Onset Hypertension Active Actinic keratosis Active 07/22/2016 Actinic keratosis Active 07/23/2016 Nevus Active 07/23/2016 Actinic keratosis Active 07/23/2016 Nasal lesion Active 09/02/2016 Vital Signs Date Time BP-Sys(mm[Hg] BP-Ashley(mm[Hg]) HR(bpm) RR(rpm) Temp WT HT HC BMI BSA BMI Percentile O2 Sat(%) 11/03/2016 1:58:00 PM 146 mmHg 72 mmHg [...] type Reviewed 08/28/2016 12:00 AM Consult/Referral Reviewed Results Summary Data and Description Results 08/04/2016 12:10 PM HGB [...] >60 FREE T4 1.07 TSH 0.50 uIU/mL History Of Immunizations Not available. History of Past Illness Name Date of [...] 2016 2:03PM Diabetes Nov 03 2016 2:03PM Payers Insurance Name Company Name Plan Name Plan Number Policy Number Policy Group Number Start Date Medicare RHC Medicare RHC [id number] N/A [facility] [id number] N/A Medicare Part B Medicare Of [place] [id number] N/A Medicare Part A Medicare - Lab/Xray [id number] N/A History of Encounters Visit Date Visit Type Provider 11/03/[address] Susie Sims DO 10/08/2016 Office visit Neris Rinaldi MODELING ANALYST 09/15/[address] Susie Sims DO 09/15/2016 Procedures Carrollbrittni Chris DO 08/31/2016 Procedures Carroll Aries DO 08/28/[address] Susie Sims DO 08/26/2016 Office visit Tiffany Mccoy MODELING ANALYST 08/20/2016 Office visit Tiffany Mccoy MODELING ANALYST 08/19/2016 Office visit Carroll Chris DO 08/13/[address] Padma Humphrey MD 08/04/[address] Susie Sims DO 08/04/2016 Procedures Carroll Chris DO 07/22/2016 Procedures Carroll Aries DO 07/15/2016 Office visit Chris Reyes MODELING ANALYST 06/13/2016 Office visit Shirin IRBY 03/11/2016 [facility] Naomi Alejandro MD
--- OUTSIDE RECORDS SUMMARY | 2018-10-05 11:38 | XMS REPORT ---
Author Author Susie Sims [facility] Address [address] [place], [place] [id number] Care Team Providers Care Manager Erp Name Role Phone Susie Sims PCP Allergies and Adverse Reactions Name Reaction Notes codeine sulfate nausea/abd pain Epinephrine fast heart beat Decongestant nausea Januvia made her sick Actos made her sick Victoza pancreatitis lisinopril Plan of Treatment Planned Activity Comments Planned Date Planned Time Plan/Goal HEMOGLOBIN A1C 02/03/2017 12:00 AM HEMOGLOBIN A1C 10/06/2017 12:00 AM Urine microalbumin measurement 10/06/2017 12:00 AM cystocele 07/09/2016 2:00 PM cystocele [...] 3 month period. Needs 3 month supply. Aspir-81 81 mg oral tablet,delayed release (DR/EC) 06/21/2017 take 1 tablet (81 mg) by oral route once daily for 90 days ondansetron 4 mg oral tablet,disintegrating 07/07/2017 dissolve 1 tablet by oral route As needed for 30 days pravastatin 20 mg oral tablet 08/04/2017 11/02/2017 take 1 tablet (20 mg) by oral [...] ONCE DAILY glipizide 10 mg oral tablet 09/02/2017 09/02/2017 TAKE ONE TABLET BY MOUTH TWICE DAILY BEFORE MEAL(S) aspirin 81 mg oral tablet,delayed release (DR/EC) 09/27/2017 09/27/2017 TAKE ONE TABLET BY MOUTH ONCE DAILY omeprazole 20 mg oral capsule,delayed release(DR/EC) 09/30/2017 09/30/2017 take 1 capsule (20 mg) by oral route daily before a meal Discontinued Name Start Date Discontinued Date SIG [...] HC BMI BSA BMI Percentile O2 Sat(%) 10/06/2017 10:04:00 AM 144 mmHg 88 mmHg 75 bpm 18 rpm 96.7 F 196.5 lbs 74 in 25.23 kg/m2 2.16 m2 96 % 07/07/2017 10:06:00 AM 115 [...] AM COMPLETE CBC W/AUTO DIFF WBC Returned Results Summary Date and Description Results 08/04/2016 [...] A1C 6.50 %Est Avg Glucose 139.9 mg/dL History Of Immunizations Name Date Admin Mfg Name Mfg Code Trade Name Lot# Route Inj Vis Given Vis Pub CVX Pneumococcal 04/02/2017 [employer] MSD Pneumovax 23 [id number] Intramuscular Left Arm 04/09/2017 11/23/2014 33 History [...] 10:07AM Essential hypertension Oct 06 2017 10:07AM Payers Insurance Name Company Name Plan Name Plan Number Policy Number Policy Group Number Start Date Medicare [facility] Medicare [facility] [id number] [id number] N/A Medicare Part B Medicare Of [place] [id number] N/A Medicare Part A Medicare - Lab/Xray [id number] N/A History of Encounters Visit Date Visit Type Provider 10/06/[address] Susie Sims DO 07/07/[address] Susie Sims DO 06/21/2017 Office visit Anton Laws MD 06/14/[address] Padma Humphrey MD 05/05/[address] Susie Sims DO 04/13/[address] Susie Sims DO 02/03/[address] Susie Sims DO 01/13/[address] Susie Sims DO 12/02/[address] Susie Sims DO 11/05/2016 [facility] Naomi Alejandro MD 11/03/[address] Susie Sims DO 10/08/2016 Office visit Neris Rinaldi MARKETING AMBASSADOR 09/15/[address] Susie Sims DO 09/15/2016 Procedures Carroll Chris DO 08/31/2016 Procedures Carroll Chris DO 08/28/[address] Susie Smis DO 08/26/2016 Office visit Tiffany Mccoy MARKETING AMBASSADOR 08/20/2016 Office visit Tiffany Mccoy MARKETING AMBASSADOR 08/19/2016 Office visit Carroll Chris DO 08/13/[address] Padma Humphrey MD 08/04/[address] Susie Sims DO 08/04/2016 Procedures Carroll Bonicole DO 07/22/2016 Procedures Carroll Bonicole DO 07/15/2016 Office visit Chris Reyes MARKETING AMBASSADOR 06/13/2016 Office visit Shirin IRBY 03/11/2016 [facility] Naomi Alejandro MD
--- OUTSIDE RECORDS SUMMARY | 2018-10-05 11:39 | XMS REPORT ---
Author Tito Arciniega [facility] Address [address] [place], [place] [id number] Care Team Providers Care Banking Services Officer Name Role Phone Tito Adkins PCP Allergies and Adverse Reactions Name Reaction [...] oral route As needed for 30 days Novolog Flexpen U-100 Insulin 100 unit/mL subcutaneous insulin pen 10/07/2017 inject 10- 17 units by subcutaneous route with each meal and prn sliding scale. uses 4500 units in 3 month period. Needs 3 month supply. Premarin 0.625 mg/gram vaginal cream 10/21/2017 insert [...] HC BMI BSA BMI Percentile O2 Sat(%) 12/02/2017 12:51:00 PM 128 mmHg 70 mmHg [...] AM COMPLETE CBC W/AUTO DIFF WBC Returned 11/16/2017 12:00 AM METABOLIC PANEL TOTAL CA Returned 11/16/2017 12:00 AM URINALYSIS AUTO W/SCOPE Returned 11/16/2017 12:00 AM ELECTROCARDIOGRAM TRACING Returned 12/02/2017 1:20 PM US URINE CAPACITY MEASURE Reviewed 12/02/2017 [...] NEGATIVE YEAST NEGATIVE CULT SET UP? NO History Of Immunizations Name Date Admin Mfg Name Mf Code Trade Name Lot# Route Inj Vis Given Vis Pub CVX Pneumococcal 04/02/2017 [employer] MSD PNEUMOVAX 23 [id number] Intramuscular Left Arm 04/09/2017 11/23/2014 33 History [...] 2017 2:36PM Constipation Dec 02 2017 12:54PM Payers Insurance Name Company Name Plan Name Plan Number Policy Number Policy Group Number Start Date Medicare Part B Medicare [facility] [id number] N/A BCBS Bcbs [facility] [id number] N/A Medicare RHC Medicare RHC [id number] N/A Medicare Part A Medicare - Lab/Xray [id number] N/A History of Encounters Visit Date Visit Type Provider 12/07/2017 Office visit Tito Adkins MD 12/02/2017 Office visit Vel Abbott MD 11/24/2017 Surgery Vel Abbott MD 11/24/2017 Hospital Carroll Chris DO 11/23/2017 Office visit Tito Adkins MD 11/11/[address] Susie Sims [...] Sims DO 10/08/2016 Office visit Neris Rinaldi GLASSIE 09/15/[address] Susie Sims DO 09/15/2016 Procedures Carroll Chris DO 08/31/2016 Procedures Carroll Chris DO 08/28/[address] Susie Sims DO 08/26/2016 Office visit Tiffany Mccoy GLASSIE 08/20/2016 Office visit Tiffany Mccoy GLASSIE 08/19/2016 Office visit Carroll Chris DO 08/13/[address] Padma Humphrey MD 08/04/[address] Susie Sims DO 08/04/2016 Procedures Carroll Chris DO 07/22/2016 Procedures Carroll Chris DO 07/15/2016 Office visit Chris [place] GLASSIE 06/13/2016 Office visit Shirin IRBY 03/11/2016 [facility] Naomi Alejandro MD
--- OUTSIDE RECORDS SUMMARY | 2018-10-05 11:40 | XMS REPORT ---
Author Author Susie Sims [facility] Address [address] [place], [place] [id number] Care Team Providers Care Second Chef Name Role Phone Susie Sims PCP Allergies and Adverse Reactions Name Reaction Notes codeine sulfate nausea/abd pain Epinephrine fast heart beat Decongestant nausea Eanuvpo made her sick Actos made her sick Victoza pancreatitis lisinopril Plan of Treatment Planned Activity Comments Planned Date Planned Time Plan/Goal cystocele 07/09/2016 2:00 PM cystocele Medications Active [...] with each meal and prn sliding scale pravastatin 20 mg oral tablet 10/08/2016 10/03/2017 [...] 3 month period. Needs 3 month supply. Name Start Date Expiration Date SIG Comments [...] 11/03/2016 12:00 AM GLYCOSYLATED HEMOGLOBIN TEST Reviewed Results Summary Data and Description Results [...] 7.30 %Est Avg Glucose 162.8 mg/ dL History Of Immunizations Not available. History of [...] Number Start Date Medicare RHC Medicare RH [id number] N/A BCBS Bcbs [facility] [id number] N/A Medicare Part B Medicare Of [place] [id number] N/A Medicare Part A Medicare - Lab/Xray [id number] N/A History of Encounters Visit Date Visit Type Provider 11/03/[address] Susie Sims DO 10/08/2016 Office visit Neris Rinaldi EYEGLASS ASSEMBLER 09/15/[address] Susie Sims DO 09/15/2016 Procedures Carroll Chris DO 08/31/2016 Procedures Carroll Chris DO 08/28/[address] Susie Sims DO 08/26/2016 Office visit Tiffany Mccoy EYEGLASS ASSEMBLER 08/20/2016 Office visit Tiffany Mccoy EYEGLASS ASSEMBLER 08/19/2016 Office visit Carroll Chris DO 08/13/[address] Padma Humphrey MD 08/04/[address] Susie Sims DO 08/04/2016 Procedures Carroll Chris DO 07/22/2016 Procedures Carroll Chris DO 07/15/2016 Office visit Chris [place] EYEGLASS ASSEMBLER 06/13/2016 Office visit Shirin IRBY 03/11/2016 [facility] Naomi Alejandro MD
--- OUTSIDE RECORDS SUMMARY | 2018-10-05 11:40 | XMS REPORT ---
Author Author Susie Sims [facility] Address [address] [place], [place] [address] Care Team Providers Care Suction Worker Name Role Phone Susie Sims PCP Allergies and Adverse Reactions Name Reaction Notes codeine sulfate nausea/abd pain Epinephrine fast heart beat Decongestant nausea Eanuvia made her sick Actos made her sick Victoza pancreatitis lisinopril Plan of Treatment Planned Activity Comments Planned Date Planned Time Plan/Goal HEMOGLOBIN A1C 02/03/2017 12:00 AM cystocele 07/09/2016 2:00 PM cystocele Medications Active Name Start Date Estimated Completion Date SIG Comments Tylenol Extra Strength 500 mg oral tablet take 1 tablet (500 mg) by oral route every 4 hours as needed omeprazole 20 mg oral capsule,delayed release(DR/EC) take 1 capsule (20 mg) by oral route twice daily before a meal triamcinolone acetonide 0.1 % topical cream apply [...] per day before meals for 30 days pravastatin 20 mg oral tablet 05/13/2017 take 1 tablet (20 mg) by oral route once daily for 90 days Aspir-81 81 mg oral tablet,delayed release (DR/EC) 06/21/2017 take 1 tablet (81 mg) by oral route once daily for 90 days ondansetron 4 mg oral tablet,disintegrating 07/07/2017 dissolve 1 tablet by oral route As needed for 30 days Name Start Date Expiration [...] 2 times per day for 14 days Flonase Allergy Relief 50 mcg/actuation nasal spray,suspension 07/20/2017 spray 1 - 2 sprays (50 - 100 mcg) in each nostril by intranasal route once daily Discontinued Name Start Date Discontinued Date SIG [...] HC BMI BSA BMI Percentile O2 Sat(%) 07/07/2017 10:06:00 AM 115 mmHg 78 mmHg [...] 07/07/2017 12:00 AM GLYCOSYLATED HEMOGLOBIN TEST Reviewed Results [...] [employer] MSD Pneumovax 23 [id number] Intramuscular Left Arm 04/09/2017 11/23/2014 33 History [...] 2017 10:09AM Hyperlipemia Jul 07 2017 10:09AM Payers Insurance Name Company Name Plan Name Plan Number Policy Number Policy Group Number Start Date Medicare RHC Medicare RHC [id number] N/A BC[facility] [id number] N/A Medicare Part B Medicare Of [place] [id number] N/A Medicare Part A Medicare - Lab/Xray [id number] N/A History of Encounters Visit Date Visit Type Provider 07/07/[address] Susie Sims DO 06/21/2017 Office visit Anton Laws MD 06/14/[address] Padma Humphrey MD 05/05/[address] Susie Sims DO 04/13/[address] Susie Sims DO 02/03/[address] Susie Sims DO 01/13/[address] Susie Sims DO 12/02/[address] Susie Sims DO 11/05/2016 [facility] Naomi Alejandro MD 11/03/[address] Susie Sims DO 10/08/2016 Office visit Neris Rinaldi APRN 09/15/[address] Susie Sims DO 09/15/2016 Procedures Carroll Chris DO 08/31/2016 Procedures Carroll Chris DO 08/28/[address] Susie Sims DO 08/26/2016 Office visit Tiffany Mccoy SUPERINTENDENT SALES 08/20/2016 Office visit Tiffany Mccoy SUPERINTENDENT SALES 08/19/2016 Office visit Carroll Chris DO 08/13/[address] Padma Humphrey MD 08/04/[address] Susie Sims DO 08/04/2016 Procedures Carroll Chris DO 07/22/2016 Procedures Carroll Chris DO 07/15/2016 Office visit Chris [place] SUPERINTENDENT SALES 06/13/2016 Office visit Shirin IRBY 03/11/2016 [facility] Naomi Alejandro MD
[2018-10-05 11:41] VITALS: BP 147/78
--- OUTSIDE RECORDS SUMMARY | 2018-10-05 11:41 | XMS REPORT ---
Author Author Tiffany Mccoy [facility] Address [address] [place], [place] [id number] Care Team Providers Care Cigarette Packing Machine Operator Name Role Phone Tiffany Mccoy PCP Unavailable Allergies and Adverse Reactions Name Reaction Notes codeine sulfate nausea/abd pain Epinephrine fast heart beat Decongestant nausea Nelda made her sick Actos made her sick Victoza pancreatitis Plan of Treatment Planned Activity Comments Planned Date Planned Time Plan/Goal cystocele 07/09/2016 2:00 PM Medications Active Name Start Date Estimated Completion Date SIG Comments losartan 100 mg oral tablet take 1 tablet (100 mg) by oral route once daily Novolog 100 unit/mL subcutaneous solution inject by subcutaneous route 8 units at breakfast, 10 and 8 at supper, and sliding scale PRN Tylenol Extra Strength 500 mg oral tablet take 1 tablet (500 mg) by oral route every 4 hours as needed omeprazole 20 mg oral capsule,delayed release(DR/EC) take 1 capsule (20 mg) by oral route twice daily before a meal aspirin 81 mg oral tablet,delayed release (DR/EC) take 1 tablet (81 mg) by oral route once daily pravastatin 20 mg oral tablet take 1 tablet (20 mg) by oral route once daily Calcium Citrate + D 315-200 mg-unit oral tablet 08/12/2016 02/08/2017 take 1 tablet by oral route 2 times a day for 30 days Levemir 100 unit/mL subcutaneous solution inject by subcutaneous route per prescriber's instructions. Insulin dosing requires individualization. ondansetron 4 mg oral tablet,disintegrating dissolve 1 [...] 1 capsule by oral route once daily metformin 500 mg oral tablet take 1 tablet (500 mg) by oral route 2 times per day with morning and evening meals Name Start Date Expiration Date SIG Comments [...] Name Start Date Discontinued Date SIG Comments Lantus 100 unit/mL subcutaneous solution 08/13/2016 inject by subcutaneous route 50 units at bedtime Problem List Description Status Onset Hypertension Active Actinic keratosis Active 07/22/2016 Actinic keratosis Active 07/23/2016 Nevus Active 07/23/2016 Actinic keratosis Active 07/23/2016 Vital Signs Date Time BP-Sys(mm[Hg] BP-Ashley(mm[Hg]) HR(bpm) RR(rpm) Temp WT HT HC BMI BSA BMI Percentile O2 Sat(%) 08/20/2016 10:06:00 AM 172 mmHg 70 mmHg [...] Reviewed 08/04/2016 12:00 AM MAMMOGRAPHY SCREENING, DIGITAL Returned 08/04/2016 12:00 AM DXA BONE DENSITY AXIAL Returned 08/04/2016 12:00 AM GLYCOSYLATED HEMOGLOBIN TEST Returned 08/04/2016 12:00 AM MICROALBUMIN QUANTITATIVE Returned 08/04/2016 12:00 AM COMPLETE CBC W/AUTO DIFF WBC Returned 08/04/2016 12:00 AM COMPREHEN METABOLIC PANEL Returned 08/04/2016 12:00 AM ASSAY OF FREE THYROXINE Returned 08/04/2016 12:00 AM ASSAY THYROID STIM HORMONE Returned 08/04/2016 12:00 AM URNLS DIP STICK/TABLET RGNT AUTO W/O MICROSCOPY Returned 08/19/2016 12:00 AM DESTRUCT PREMALG LESION Reviewed Results Summary Data and Description Results [...] Actinic keratosis 07/23/2016 Nevus 07/23/2016 Pancreatitis, acute Acute cystitis with hematuria Jun 13 2016 [...] 2016 10:09AM Cystocele Aug 20 2016 10:09AM Payers Insurance Name Company Name Plan Name Plan Number Policy Number Policy Group Number Start Date Medicare RHC Medicare RHC [id number] N/A BCBS Bcbs [facility] [id number] N/A Medicare Part B Medicare Of [place] [id number] N/A Medicare Part A Medicare - Lab/Xray [id number] N/A History of Encounters Visit Date Visit Type Provider 08/20/2016 Office visit Tiffany Mccoy SEMICONDUCTOR DIES LOADER 08/19/2016 Office visit Carroll Chris DO 08/13/[address] Padma Humphrey MD 08/04/[address] Susie Sims DO 08/04/2016 Procedures Carroll Chris DO 07/22/2016 Procedures Carroll Chris DO 07/15/2016 Office visit Chris [place] SEMICONDUCTOR DIES LOADER 06/13/2016 Office visit Shirin IRBY 03/11/2016 [facility] Naomi Alejandro MD
--- OUTSIDE RECORDS SUMMARY | 2018-10-05 11:41 | XMS REPORT ---
Author Author Vel Abbott Organization [facility] Address [address] [place], [place] [address] Care Team Providers Care Bending Shed Worker Name Role Phone Sushmasourav Vel PCP Allergies and Adverse Reactions Name Reaction Notes codeine sulfate nausea/abd pain Epinephrine fast heart beat Decongestant nausea Januvia made her sick Actos made her sick Victoza pancreatitis lisinopril Omeprazole Plan of Treatment Planned Activity Comments Planned Date Planned Time Plan/Goal HEMOGLOBIN A1C 02/03/2017 12:00 AM HEMOGLOBIN A1C 10/06/2017 12:00 AM Urine microalbumin measurement 10/06/2017 12:00 AM Mammogram, screening, bilateral 11/11/2017 12:00 AM URINALYSIS W/MICRO C&S IF IND [...] then only 3 times per week thereafter (MW) pravastatin 20 mg oral tablet 11/18/2017 take [...] HC BMI BSA BMI Percentile O2 Sat(%) 11/23/2017 2:15:00 PM 144 mmHg 80 mmHg [...] W/SCOPE Reviewed 11/04/2017 12:00 AM CYSTOSCOPY Reviewed 11/16/2017 12:00 AM COMPLETE CBC W/AUTO DIFF WBC Returned 11/16/2017 12:00 AM METABOLIC PANEL TOTAL CA Returned 11/16/2017 12:00 AM URINALYSIS AUTO W/SCOPE Returned 11/16/2017 12:00 AM ELECTROCARDIOGRAM TRACING Returned Results Summary Date and Description Results [...] [employer] MSD PNEUMOVAX 23 [id number] Intramuscular Left Arm 04/09/2017 11/23/2014 33 History [...] 2:36PM Vaginal prolapse Nov 23 2017 2:36PM Payers Insurance Name Company Name Plan Name Plan Number Policy Number Policy Group Number Start Date Medicare [facility] Medicare [facility] [id number] N/A [facility] [id number] N/A Medicare Part B Medicare Of [place] [id number] N/A Medicare Part A Medicare - Lab/Xray [id number] N/A History of Encounters Visit Date Visit Type Provider 11/24/2017 Surgery Vel Abbott MD 11/24/2017 Hospital [...] Office visit Dr. Susie Sims DO 11/05/2016 [facility] Naomi Alejandro MD 11/03/[address] Susei Sims DO 10/08/2016 Office visit Neris Rinaldi MANAGER PRODUCT 09/15/[address] Susie Sims DO 09/15/2016 Procedures Carroll Chris DO 08/31/2016 Procedures Carroll Chris DO 08/28/[address] Susie Sims DO 08/26/2016 Office visit Tiffany Mccoy MANAGER PRODUCT 08/20/2016 Office visit Tiffany Mccoy MANAGER PRODUCT 08/19/2016 Office visit Carroll Chris DO 08/13/[address] Padma Humphrey MD 08/04/[address] Susie Sims DO 08/04/2016 Procedures Carroll Bonicole DO 07/22/2016 Procedures Carroll Bouman DO 07/15/2016 Office visit Chris [place] MANAGER PRODUCT 06/13/2016 Office visit Shirin IRBY 03/11/2016 [facility] Naomi Alejandro MD
--- OUTSIDE RECORDS SUMMARY | 2018-10-05 11:42 | XMS REPORT ---
Author Author Susie Sims [facility] Address [address] [place], [place] [address] Care Team Providers Care Director Radiation Oncology Name Role Phone Susie Sims PCP Allergies [...] 3 month period. Needs 3 month supply. glipizide 10 mg oral tablet 01/13/2017 05/13/2017 take 1 tablet (10 mg) by oral route 2 times per day before meals for 30 days Name Start Date Expiration [...] with meals metformin 500 mg oral tablet losartan 100 mg oral tablet 09/02/2016 12/01/2016 take 1 tablet (100 mg) by oral route once daily for 90 days Discontinued Name Start Date [...] HC BMI BSA BMI Percentile O2 Sat(%) 01/13/2017 10:33:00 AM 126 mmHg 80 mmHg [...] 2017 10:36AM Osteopenia Jan 13 2017 10:36AM Payers Insurance Name Company Name Plan Name Plan Number Policy Number Policy Group Number Start Date Medicare RHC Medicare RHC [id number] N/A [id number] N/A Medicare Part B Medicare Of [place] [id number] N/A Medicare Part A Medicare - Lab/Xray [id number] N/A History of Encounters Visit Date Visit Type Provider 01/13/[address] Susie Sims DO 12/02/[address] Susie Sims DO 11/03/[address] Susie Sims DO 10/08/2016 Office visit Neris Rinaldi MANUAL EQUIPMENT MECHANIC 09/15/[address] Susie Sims DO 09/15/2016 Procedures Carroll Chris DO 08/31/2016 Procedures Carroll Chris DO 08/28/[address] Susie Sims DO 08/26/2016 Office visit Tiffany Mccoy MANUAL EQUIPMENT MECHANIC 08/20/2016 Office visit Tiffany Mccoy MANUAL EQUIPMENT MECHANIC 08/19/2016 Office visit Carroll Chris DO 08/13/[address] Padma Humphrey MD 08/04/[address] Susie Sims DO 08/04/2016 Procedures Carroll Chris DO 07/22/2016 Procedures Carroll Chris DO 07/15/2016 Office visit Chris [place] MANUAL EQUIPMENT MECHANIC 06/13/2016 Office visit Shirin IRBY 03/11/2016 [facility] Naomi Alejandro MD
--- OUTSIDE RECORDS SUMMARY | 2018-10-05 11:42 | XMS REPORT ---
Author Author Shirin Rosas [facility] Address [address] [place], [place] [address] Care Team Providers Care Film Processing Supervisor Name Role Phone Shirin Rosas PCP AJ ALONSO PreferredProvider Unavailable Allergies and Adverse Reactions Not available. Plan of Treatment Not available. Medications Active Name Start Date Estimated Completion Date SIG Comments pravastatin 20 mg oral tablet take 1 tablet (20 mg) by oral route once daily losartan 100 mg oral tablet take 1 tablet (100 mg) by oral route once daily Novolog 100 unit/mL subcutaneous solution inject by subcutaneous route per prescriber's instructions. Insulin dosing requires individualization. Lantus 100 unit/mL subcutaneous solution Bactrim DS 800-160 mg oral tablet 06/13/2016 06/20/2016 take 1 tablet by oral route every 12 hours for 7 days Problem List Not available. Vital Signs Date Time BP-Sys(mm[Hg] BP-Ashley(mm[Hg]) HR(bpm) RR(rpm) Temp WT HT HC BMI BSA BMI Percentile O2 Sat(%) 06/13/2016 10:39:00 AM 132 mmHg 84 mmHg 76 bpm 16 rpm 99 F 188 lbs 62 in 34.39 kg/m2 1.93 m2 94 % Social History Not available. History of Procedures Not available. Results Summary Not available. History Of Immunizations Not available. History of Past Illness Name Date of Onset Comments Acute cystitis with hematuria Jun 13 2016 10:42AM Cystocele, unspecified cystocele location Jun 13 2016 10:42AM Payers Insurance Name Company Name Plan Name Plan Number Policy Number Policy Group Number Start Date Medicare Part B Medicare [facility] [id number] N/A [id number] N/A History of Encounters Visit Date Visit Type Provider 06/13/2016 Office visit Shirin Rosas RECEIVING TELLER 03/11/2016 [facility] Naomi Alejandro MD
--- OUTSIDE RECORDS SUMMARY | 2018-10-05 11:42 | XMS REPORT ---
Author Carroll Ponce [facility] Address [address] [place], [place] [address] Care Team Providers Care Clerical Warehouseman Name Role Phone Carroll Chris PCP Unavailable AJ ALONSO PreferredProvider Unavailable Allergies and Adverse Reactions Name Reaction Notes codeine sulfate nausea/abd pain Epinephrine fast heart beat Plan of Treatment Planned Activity Comments Planned Date Planned Time Plan/Goal cystocele 07/09/2016 2:00 PM Medications Active Name Start Date Estimated Completion Date SIG Comments losartan 100 mg oral tablet take 1 tablet (100 mg) by oral route once daily Novolog 100 unit/mL subcutaneous solution inject by subcutaneous route 8 units at breakfast, 10 and 8 at supper, and sliding scale PRN Qualaquin 324 mg oral capsule take 1 capsules (324 mg) by oral route once daily Tylenol Extra Strength 500 mg oral tablet take 1 tablet (500 mg) by oral route every 4 hours as needed omeprazole 20 mg oral capsule,delayed release(DR/EC) take 1 capsule (20 mg) by oral route twice daily before a meal aspirin 81 mg oral tablet,delayed release (DR/EC) take 1 tablet (81 mg) by oral route once daily Lantus 100 unit/mL subcutaneous solution inject by subcutaneous route 50 units at bedtime pravastatin 20 mg oral tablet take 1 tablet (20 mg) by oral route once daily Name [...] by oral route once daily at bedtime Invokamet 150-1,000 mg oral tablet take 1 tablet by oral route 2 times per day with meals Problem List Description Status Onset Hypertension Active Actinic Keratosis Active 07/22/2016 Actinic Keratosis Active 07/23/2016 Nevus Active 07/23/2016 Actinic Keratosis Active 07/23/2016 Vital Signs Date Time BP-Sys(mm[Hg] BP-Ashley(mm[Hg]) HR(bpm) RR(rpm) Temp WT HT HC BMI BSA BMI Percentile O2 Sat(%) 08/04/2016 8:32:00 AM 156 mmHg 84 mmHg [...] Tobacco Former smoker Alcohol Use - Occasional 1-4 drinks weekly History of Procedures Date Ordered Description Order Status 07/22/2016 12:00 AM DESTRUCT PREMALG LESION Reviewed Results Summary Not available. History Of Immunizations Not available. History of Past Illness Name Date of Onset Comments Hypertension GERD (gastroesophageal reflux disease) Diabetes mellitus, Type 2 Spinal stenosis, Cervical region Hypercholesteremia Actinic Keratosis 07/23/2016 Nevus 07/23/2016 Acute cystitis with hematuria Jun 13 2016 10:42AM Cystocele, unspecified cystocele location Jun 13 2016 10:42AM Lesion of nose Jul 22 2016 3:14PM Actinic Keratosis Jul 22 2016 3:38PM Benign nevus Jul 22 2016 3:38PM Actinic keratosis Jul 15 2016 5:55PM Nevus Jul 15 2016 5:55PM Actinic keratosis Jul 22 2016 3:14PM Nevus Jul 22 2016 3:14PM Payers Insurance Name Company Name Plan Name Plan Number Policy Number Policy Group Number Start Date Medicare Part A Medicare RHC [id number] N/A [facility] [id number] N/A Medicare Part B Medicare Of [place] [id number] N/A Medicare Part A Medicare - Lab/Xray [id number] N/A History of Encounters Visit Date Visit Type Provider 08/04/2016 Procedures Carroll Chris DO 07/22/2016 Procedures Carroll Chris DO 07/15/2016 Office visit Chris [place] APRN 06/13/2016 Office visit Shirin IRBY 03/11/2016 [facility] Naomi Alejandro MD
--- OUTSIDE RECORDS SUMMARY | 2018-10-05 11:43 | XMS REPORT ---
Author Author Susie Sims [facility] Address [address] [place], [place] [id number] Care Team Providers Care Cover Creaser Name Role Phone Susie Sims PCP Allergies and Adverse Reactions Name Reaction Notes codeine sulfate nausea/abd pain Epinephrine fast heart beat Decongestant nausea Eanuvia made her sick Actos made her sick Victoza pancreatitis lisinopril Plan of Treatment Planned Activity Comments Planned Date Planned Time Plan/Goal HEMOGLOBIN A1C 02/03/2017 12:00 AM HEMOGLOBIN A1C 07/07/2017 12:00 AM cystocele 07/09/2016 2:00 PM cystocele [...] DIP STICK/TABLET RGNT AUTO W/O MICROSCOPY Reviewed Results Summary Date and Description Results [...] LEUK SCREEN NEGATIVE MICRO INDICATED? NOT INDICATED History Of Immunizations Name Date Admin Mfg Name Mfg Code Trade Name Lot# Route Inj Vis Given Vis Pub CVX Pneumococcal 04/02/2017 [employer]ck [employer] MSD Pneumovax 23 [id number] Intramuscular Left Arm 04/09/2017 11/23/2014 33 History [...] Group Number Start Date Medicare RHC Medicare [facility] [id number] N/A BCBS [facility] [id number] N/A Medicare Part B Medicare Of [place] [id number] N/A Medicare Part A Medicare - Lab/Xray [id number] N/A History of Encounters Visit Date Visit [...] Office visit Dr. Susie Sims DO 11/05/2016 Bong Alejandro MD 11/03/[address] Susie Sims DO 10/08/2016 Office visit Neris Rinaldi DOG HAIR CLIPPER 09/15/[address] Susie Sims DO 09/15/2016 Procedures Carroll Chris DO 08/31/2016 Procedures Carroll Chris DO 08/28/[address] Susie Sims DO 08/26/2016 Office visit Tiffany Mccoy DOG HAIR CLIPPER 08/20/2016 Office visit Tiffany Mccoy DOG HAIR CLIPPER 08/19/2016 Office visit Carroll Chris DO 08/13/[address] Padma Humphrey MD 08/04/[address] Susie Sims DO 08/04/2016 Procedures Carroll Chris DO 07/22/2016 Procedures Carroll Chris DO 07/15/2016 Office visit Chris [place] DOG HAIR CLIPPER 06/13/2016 Office visit Shirin IRBY 03/11/2016 [facility] Naomi Alejandro MD
--- OUTSIDE RECORDS SUMMARY | 2018-10-05 11:44 | XMS REPORT ---
Author Carroll Ponce [facility] Address [address] [place], [place] [address] Care Team Providers Care Rigging Engineer Name Role Phone Carroll Chris PCP Unavailable Allergies and Adverse Reactions Name [...] HC BMI BSA BMI Percentile O2 Sat(%) 08/19/2016 12:56:00 PM 157 mmHg 81 mmHg [...] Actinic Keratosis 07/23/2016 Nevus 07/23/2016 Pancreatitis, acute Acute cystitis [...] 2016 2:12PM Nevus Aug 19 2016 1:09PM Payers Insurance Name Company Name Plan Name Plan Number Policy Number Policy Group Number Start Date Medicare RHC Medicare RHC [id number] N/A BCBS Bcbs [facility] [id number] N/A Medicare Part B Medicare Of [place] [id number] N/A Medicare Part A Medicare - Lab/Xray [id number] N/A History of Encounters Visit Date Visit Type Provider 08/19/2016 Office visit Carroll Chris DO 08/13/[address] Padma Humphrey MD 08/04/[address] Susie Sims DO 08/04/2016 Procedures Carroll Chris DO 07/22/2016 Procedures Carroll Chris DO 07/15/2016 Office visit Chris [place] APRN 06/13/2016 Office visit Shirin IRBY 03/11/2016 [facility] Naomi Alejandro MD
--- OUTSIDE RECORDS SUMMARY | 2018-10-05 11:44 | XMS REPORT ---
Author Carroll Ponce [facility] Address [address] [place], [place] [address] Care Team Providers Care Media Marketing Manager Name Role Phone Carroll Chris PCP Unavailable [...] Onset Hypertension Active Actinic Keratosis Active 07/22/2016 Vital Signs Date Time BP-Sys(mm[Hg] BP-Ashley(mm[Hg]) HR(bpm) RR(rpm) Temp WT HT HC BMI BSA BMI Percentile O2 Sat(%) 07/22/2016 3:09:00 PM 141 mmHg 74 mmHg [...] Spinal stenosis, Cervical region Hypercholesteremia Actinic Keratosis 07/22/2016 Acute cystitis with hematuria Jun 13 2016 10:42AM Cystocele, unspecified cystocele location Jun 13 2016 10:42AM Lesion of nose Jul 22 2016 3:14PM Actinic Keratosis Jul 22 2016 3:38PM Benign nevus Jul 22 2016 3:38PM Payers Insurance Name Company Name Plan Name Plan Number Policy Number Policy Group Number Start Date Medicare Part A Medicare RHC [id number] N/A [facility] [id number] N/A Medicare Part B Medicare Of [place] [id number] N/A Medicare Part A Medicare - Lab/Xray [id number] N/A History of Encounters Visit Date Visit Type Provider 07/22/2016 Procedures Carroll Chris DO 07/15/2016 Office visit Chris [place] APRN 06/13/2016 Office visit Shirin IRBY 03/11/2016 Bong Alejandro MD
--- OUTSIDE RECORDS SUMMARY | 2018-10-05 11:44 | XMS REPORT ---
Author Author Susie Sims [facility] Address [address] [place], [place] [address] Care Team Providers Care Corn Crop Supervisor Name Role Phone Susie Sims PCP Allergies [...] month supply. glipizide 10 mg oral tablet 12/02/2016 01/31/2017 take 1 tablet (10 mg) by oral route once daily before a meal for 30 days Name Start Date Expiration [...] HC BMI BSA BMI Percentile O2 Sat(%) 12/02/2016 1:59:00 PM 119 mmHg 59 mmHg [...] 2:05PM Reflux gastritis Dec 02 2016 2:05PM Payers Insurance Name Company Name Plan Name Plan Number Policy Number Policy Group Number Start Date Medicare RHC Medicare [place] [id number] N/A BCBS Bcbs [facility] [id number] N/A Medicare Part B Medicare Of [place] [id number] N/A Medicare Part A Medicare - Lab/Xray [id number] N/A History of Encounters Visit Date Visit Type Provider 12/02/[address] Susie Sims DO 11/03/[address] Susie Sims DO 10/08/2016 Office visit Neris Rinaldi MATERIAL CONTROL CLERK 09/15/[address] Susie Sims DO 09/15/2016 Procedures Carroll Chris DO 08/31/2016 Procedures Carroll Chris DO 08/28/[address] Susie Sims DO 08/26/2016 Office visit Tiffany Mccoy MATERIAL CONTROL CLERK 08/20/2016 Office visit Tiffany Mccoy MATERIAL CONTROL CLERK 08/19/2016 Office visit Carroll Chris DO 08/13/[address] Padma Humphrey MD 08/04/[address] Susie Sims DO 08/04/2016 Procedures Carroll Chris DO 07/22/2016 Procedures Carroll Chris DO 07/15/2016 Office visit Chris [place] MATERIAL CONTROL CLERK 06/13/2016 Office visit Shirni IRBY 03/11/2016 [facility] Naomi Alejandro MD
--- OUTSIDE RECORDS SUMMARY | 2018-10-05 11:44 | XMS REPORT ---
Author Author Shirin Rosas [facility] Address [address] [place], [place] [address] Care Team Providers Care Relay Operator Name Role Phone Shirin Rosas PCP AJ ALONSO PreferredProvider Unavailable Allergies and Adverse Reactions Name Reaction Notes codeine sulfate Plan of Treatment Not available. Medications Active [...] requires individualization. Lantus 100 unit/mL subcutaneous solution Name Start Date Expiration Date SIG Comments Bactrim DS 800-160 mg oral tablet 06/13/2016 06/20/2016 take 1 tablet by oral route every 12 hours for 7 days Problem List Description Status Onset Hypertension Active Diabetes Active Vital Signs Date Time BP-Sys(mm[Hg] BP-Ashley(mm[Hg]) HR(bpm) RR(rpm) Temp WT HT HC BMI BSA BMI Percentile O2 Sat(%) 06/13/2016 10:39:00 AM 132 mmHg 84 mmHg 76 bpm 16 rpm 99 F 188 lbs 62 in 34.39 kg/m2 1.93 m2 94 % Social History Name Description Comments non smoker Lives with spouse Has never used alcohol History of Procedures Not available. Results Summary Not available. History Of Immunizations Not available. History of Past Illness Name Date of Onset Comments Hypertension Diabetes Acute cystitis with hematuria Jun 13 2016 10:42AM Cystocele, unspecified cystocele location Jun 13 2016 10:42AM Payers Insurance Name Company Name Plan Name Plan Number Policy Number Policy Group Number Start Date Medicare Part B Medicare [facility] [id number] N/A [facility] [id number] N/A History of Encounters Visit Date Visit Type Provider 06/13/2016 Office visit Shirin IRBY 03/11/2016 [facility] Naomi Alejandro MD
--- OUTSIDE RECORDS SUMMARY | 2018-10-05 11:45 | XMS REPORT ---
Author Author Tiffany Mccoy [facility] Address [address] [place], [place] [address] Care Team Providers Care Cleaner And Polisher Name Role Phone Tiffany Mccoy PCP Unavailable [...] HC BMI BSA BMI Percentile O2 Sat(%) 08/26/2016 10:43:00 AM 143 mmHg 65 mmHg [...] 2016 10:46AM Rectocele Aug 26 2016 10:46AM Payers Insurance Name Company Name Plan Name Plan Number Policy Number Policy Group Number Start Date Medicare RHC Medicare RH [id number] N/A BCBS Bcbs [facility] [id number] N/A Medicare Part B Medicare Of [place] [id number] N/A Medicare Part A Medicare - Lab/Xray [id number] N/A History of Encounters Visit Date Visit Type Provider 08/26/2016 Office visit Tiffany Mccoy RECEIVABLES SPECIALIST 08/20/2016 Office visit Tiffany Mccoy RECEIVABLES SPECIALIST 08/19/2016 Office visit Carroll Chris DO 08/13/[address] Padma Humphrey MD 08/04/[address] Susie Sims DO 08/04/2016 Procedures Carroll Chris DO 07/22/2016 Procedures Carroll Chris DO 07/15/2016 Office visit Chris [place] RECEIVABLES SPECIALIST 06/13/2016 Office visit Shirin IRBY 03/11/2016 Bong Alejandro MD
--- OUTSIDE RECORDS SUMMARY | 2018-10-05 11:46 | XMS REPORT ---
Author Author Padma Humphrey [facility] Address [address] [place], [place] [address] Care Team Providers Care Cover Creaser Name Role Phone Padma Humphrey PCP Unavailable Allergies and Adverse Reactions Name [...] TAKE ONE TABLET BY MOUTH ONCE DAILY Aspir-81 81 mg oral tablet,delayed release (DR/EC) take 1 tablet (81 mg ) by oral route once daily glipizide 10 mg oral tablet 04/20/2017 take [...] HC BMI BSA BMI Percentile O2 Sat(%) 06/14/2017 2:51:00 PM 161 mmHg 88 mmHg [...] [employer] MSD Pneumovax 23 [id number] Intramuscular Left Arm 04/09/2017 11/23/2014 33 History [...] 2017 2:59PM Rectocele Jun 14 2017 2:59PM Payers Insurance Name Company Name Plan Name Plan Number Policy Number Policy Group Number Start Date Medicare RHC Medicare RHC [id number] N/A [facility] [id number] N/A Medicare Part B Medicare Of [place] [id number] N/A Medicare Part A Medicare - Lab/Xray [id number] N/A History of Encounters Visit Date Visit Type Provider 06/14/[address] Padma Humphrey MD 05/05/[address] Susie Sims DO 04/13/[address] Susie Sims DO 02/03/[address] Susie Sims DO 01/13/[address] Susie Sims DO 12/02/[address] Susie Sims DO 11/05/2016 [facility] Naomi Alejandro MD 11/03/[address] Susie Sims DO 10/08/2016 Office visit Neris Rinaldi GENERAL MACHINIST 09/15/[address] Susie Sims DO 09/15/2016 Procedures Carrollbrittni Chris DO 08/31/2016 Procedures Carroll Aries DO 08/28/[address] Susie Sims DO 08/26/2016 Office visit Tiffany Mccoy GENERAL MACHINIST 08/20/2016 Office visit Tiffany Mccoy GENERAL MACHINIST 08/19/2016 Office visit Carroll Chris DO 08/13/[address] Padma Humphrey MD 08/04/[address] Susie Sims DO 08/04/2016 Procedures Carroll Bonicole DO 07/22/2016 Procedures Carroll Bouman DO 07/15/2016 Office visit Chris [place] GENERAL MACHINIST 06/13/2016 Office visit Shirin IRBY 03/11/2016 [facility] Naomi Alejandro MD
--- OUTSIDE RECORDS SUMMARY | 2018-10-05 11:46 | XMS REPORT ---
Author Author Susie Sims [facility] Address [address] [place], [place] [address] Care Team Providers Care Engine Designer Name Role Phone Susie Sims PCP Allergies [...] per day with morning and evening meals Levemir 100 unit/mL subcutaneous solution 08/28/2016 09/27/2016 26 U AM and PM Name Start Date Expiration Date SIG Comments [...] HC BMI BSA BMI Percentile O2 Sat(%) 08/28/2016 9:36:00 AM 132 mmHg 89 mmHg [...] 08/19/2016 12:00 AM DESTRUCT PREMALG LESION Reviewed 08/28/2016 12:00 AM Consult/Referral Reviewed Results Summary Data and Description Results 08/04/2016 12:10 PM HGB A1C 6.40 %Est Avg Glucose 137.0 mg/dLWBC 6.6 RBC 4.57 HGB 12.80 g/dLHCT 40.90 %MCV 90.0 fLMCH 28.0 pgHC 31.30 g/dLRDW SD 47 RDW CV 14.40 [...] unspecified cystocele location Aug 28 2016 9:41AM Payers Insurance Name Company Name Plan Name Plan Number Policy Number Policy Group Number Start Date Medicare RHC Medicare RHC [id number] N/A BCBS Bcbs [facility] [id number] N/A Medicare Part B Medicare Of [place] [id number] N/A Medicare Part A Medicare - Lab/Xray [id number] N/A History of Encounters Visit Date Visit Type Provider 08/28/[address] Susie Sims DO 08/26/2016 Office visit Tiffany Mccoy BOTTLE LABELER 08/20/2016 Office visit Tiffany Mccoy BOTTLE LABELER 08/19/2016 Office visit Carroll Chris DO 08/13/[address] Padma Humphrey MD 08/04/[address] Susie Sims DO 08/04/2016 Procedures Carroll Chris DO 07/22/2016 Procedures Carroll Chris DO 07/15/2016 Office visit Chris Reyes BOTTLE LABELER 06/13/2016 Office visit Shirin IRBY 03/11/2016 [facility] Naomi Alejandro MD
--- OUTSIDE RECORDS SUMMARY | 2018-10-05 11:47 | XMS REPORT ---
Author Author Vel Abbott Organization [facility] Address [address] [place], [place] [address] Care Team Providers Care Admitting Coordinator Name Role Phone Sushmasourav Vel PCP Allergies [...] W/MICRO C&S IF IND 11/23/2017 12:00 AM Abdomen Acute Series - Main 12/02/2017 12:00 AM cystocele 07/09/2016 2:00 PM cystocele [...] oral route once daily for 90 days Keflex 500 mg oral capsule 11/30/2017 12/03/2017 take 1 capsule (500 mg) by oral route every 12 hours for 3 days Name Start Date Expiration Date SIG [...] by oral route daily before a meal Diflucan 200 mg oral tablet 11/30/2017 12/01/2017 [...] 1:20 PM US URINE CAPACITY MEASURE Reviewed Results Summary Date and Description Results [...] [employer] MSD PNEUMOVAX 23 [id number] Intramuscular Left Arm 04/09/2017 11/23/2014 33 History [...] Number Start Date Medicare Part B Medicare [facility] [id number] N/A BCBS Bcbs [facility] [id number] N/A Medicare RHC Medicare RHC [id number] N/A Medicare Part A Medicare - Lab/Xray [id number] N/A History of Encounters Visit Date Visit Type Provider 12/02/2017 Office visit Vel Abbott MD 11/24/2017 [...] Office visit Dr. Susie Sims DO 11/05/2016 [facility] Naomi Alejandro MD 11/03/[address] Susie Sims DO 10/08/2016 Office visit Neris Rinaldi TOOL ROOM ATTENDANT 09/15/[address] Susie Sims DO 09/15/2016 Procedures Carroll Chris DO 08/31/2016 Procedures Carroll Chris DO 08/28/[address] Susie Sims DO 08/26/2016 Office visit Tiffany Mccoy TOOL ROOM ATTENDANT 08/20/2016 Office visit Tiffany Mccoy TOOL ROOM ATTENDANT 08/19/2016 Office visit Carroll Chris DO 08/13/[address] Padma Humphrey MD 08/04/[address] Susie Sims DO 08/04/2016 Procedures Carroll Chris DO 07/22/2016 Procedures Carroll Chris DO 07/15/2016 Office visit Chris [place] TOOL ROOM ATTENDANT 06/13/2016 Office visit Shirin IRBY 03/11/2016 [facility] Naomi Alejandro MD
--- OUTSIDE RECORDS SUMMARY | 2018-10-05 11:48 | XMS REPORT ---
Author Author Padma Humphrey [facility] Address [address] [place], [place] [id number] Care Team Providers Care Car Varnisher Name Role Phone Padma Humphrey PCP Unavailable [...] (20 mg) by oral route once daily metformin 500 mg oral tablet Calcium Citrate [...] take 1 tablet by oral route daily Name Start Date Expiration Date SIG [...] route 2 times per day with meals Discontinued Name Start Date Discontinued Date SIG Comments Lantus 100 unit/mL subcutaneous solution 08/13/2016 inject by subcutaneous route 50 units at bedtime Problem List Description Status Onset Hypertension Active Actinic keratosis Active 07/22/2016 Actinic keratosis Active 07/23/2016 Nevus Active 07/23/2016 Actinic keratosis Active 07/23/2016 Vital Signs Date Time BP-Sys(mm[Hg] BP-Ashley(mm[Hg]) HR(bpm) RR(rpm) Temp WT HT HC BMI BSA BMI Percentile O2 Sat(%) 08/13/2016 1:56:00 PM 151 mmHg 82 mmHg [...] DIP STICK/TABLET RGNT AUTO W/O MICROSCOPY Returned Results Summary Data and Description Results 08/04/2016 [...] Urgency of urination Aug 13 2016 2:12PM Payers Insurance Name Company Name Plan Name Plan Number Policy Number Policy Group Number Start Date Medicare [facility] Medicare [facility] [id number] N/A [facility] [id number] N/A Medicare Part B Medicare Of [place] [id number] N/A Medicare Part A Medicare - Lab/Xray [id number] N/A History of Encounters Visit Date Visit Type Provider 08/13/[address] Padma Humphrey MD 08/04/[address] Susie Sims DO 08/04/2016 Procedures Carroll Chris DO 07/22/2016 Procedures Carroll Chris DO 07/15/2016 Office visit Chris [place] APRN 06/13/2016 Office visit Shirin IRBY 03/11/2016 [facility] Naomi Alejandro MD
--- OUTSIDE RECORDS SUMMARY | 2018-10-05 11:48 | XMS REPORT ---
Author Susie Li [facility] Address [address] [place], [place] [phone] Care Team Providers Care High School Coordinator Name Role Phone Susie Sims PCP Allergies [...] AM Mammogram, screening, bilateral 11/11/2017 12:00 AM cystocele 07/09/2016 2:00 PM cystocele [...] only 3 times per week thereafter (MWF) Name Start Date Expiration Date SIG Comments [...] TAKE ONE TABLET BY MOUTH ONCE DAILY pravastatin 20 mg oral tablet 08/04/2017 11/02/2017 take 1 tablet (20 mg) by oral route once daily for 90 days glipizide 10 mg oral tablet 09/02/2017 09/02/2017 [...] HC BMI BSA BMI Percentile O2 Sat(%) 11/11/2017 9:00:00 AM 122 mmHg 78 mmHg [...] F 196.5 lbs 74 in 25.23 kg/m2 2.1572 m 96 % 07/07/2017 10:06:00 AM 115 [...] W/SCOPE Reviewed 11/04/2017 12:00 AM CYSTOSCOPY Reviewed Results Summary Date and Description Results [...] [employer] MSD PNEUMOVAX 23 [id number] Intramuscular Left Arm 04/09/2017 11/23/2014 33 History [...] 9:02AM Atrophic vaginitis Nov 11 2017 9:02AM Payers Insurance Name Company Name Plan Name Plan Number Policy Number Policy Group Number Start Date Medicare RHC Medicare RHC [id number] N/A BCBS [facility] [id number] N/A Medicare Part B Medicare Of [place] [id number] N/A Medicare Part A Medicare - Lab/Xray [id number] N/A History of Encounters Visit Date Visit Type Provider 11/11/[address] Susie Sims DO [...] Office visit Dr. Susie Sims DO 11/05/2016 [facility] Naomi Alejandro MD 11/03/[address] Susie Sims DO 10/08/2016 Office visit Neris Rinaldi HAND BOBBIN CLEANER 09/15/[address] Susie Sims DO 09/15/2016 Procedures Carroll Bouman DO 08/31/2016 Procedures Carroll Bouman DO 08/28/[address] Susie Sims DO 08/26/2016 Office visit Tiffany Mccoy HAND BOBBIN CLEANER 08/20/2016 Office visit Tiffany Mccoy HAND BOBBIN CLEANER 08/19/2016 Office visit Carroll Chris DO 08/13/[address] Padma Humphrey MD 08/04/[address] Susie Sims DO 08/04/2016 Procedures Carroll Bouman DO 07/22/2016 Procedures Carroll Bouman DO 07/15/2016 Office visit Chris [place] HAND BOBBIN CLEANER 06/13/2016 Office visit Shirin IRBY 03/11/2016 [facility] Naomi Alejandro MD
--- OUTSIDE RECORDS SUMMARY | 2018-10-05 11:49 | XMS REPORT ---
Author Author Padma Humphrey [facility] Address [address] [place], [place] [phone] Care Team Providers Care Nuclear Powerplant Mechanic Helper Name Role Phone Padma Humphrey PCP Unavailable [...] Number Policy Group Number Start Date Medicare [facility] Medicare [facility] [id number] N/A [facility] [id number] N/A Medicare Part B Medicare Of [place] [id number] N/A Medicare Part A Medicare - Lab/Xray [id number] N/A History of Encounters Visit Date Visit Type Provider 08/13/[address] Padma Humphrey MD 08/04/[address] Susie Sims DO 08/04/2016 Procedures Carroll Chris DO 07/22/2016 Procedures Carroll Chris DO 07/15/2016 Office visit Chris [place] APRN 06/13/2016 Office visit Shirin IRBY 03/11/2016 [facility] Naomi Alejandro MD
--- OUTSIDE RECORDS SUMMARY | 2018-10-05 11:49 | XMS REPORT ---
Author Author Padma Humphrey [facility] Address [address] [place], [place] [id number] Care Team Providers Care Air Cargo Specialist Name Role Phone Padma Humphrey PCP Unavailable [...] Start Date Medicare Part A Medicare RHC [id number] N/A [facility] [id number] N/A Medicare Part B Medicare Of [place] [id number] N/A Medicare Part A Medicare - Lab/Xray [id number] N/A History of Encounters Visit Date Visit Type Provider 08/13/[address] Padma Humphrey MD 08/04/[address] Susie Sims DO 08/04/2016 Procedures Carroll Chris DO 07/22/2016 Procedures Carroll Chris DO 07/15/2016 Office visit Chris [place] APRN 06/13/2016 Office visit Shirin IRBY 03/11/2016 [facility] Naomi Alejandro MD
--- OUTSIDE RECORDS SUMMARY | 2018-10-05 11:50 | XMS REPORT ---
Author Carroll Ponce [facility] Address [address] [place], [place] [phone] Care Team Providers Care Loss Control Representative Name Role Phone Carroll Chris PCP Unavailable Allergies and Adverse Reactions Name Reaction Notes codeine sulfate nausea/abd pain Epinephrine fast heart beat Decongestant nausea Nelda made her sick Actos made her sick Victoza pancreatitis Plan of Treatment Planned Activity Comments Planned Date Planned Time Plan/Goal cystocele 07/09/2016 2:00 PM cystocele Medications Active Name Start Date Estimated Completion Date SIG Comments Novolog 100 unit/mL subcutaneous solution inject by [...] 08/28/2016 09/27/2016 26 U AM and PM pravastatin 20 mg oral tablet 09/02/2016 12/01/2016 take 1 tablet (20 mg) by oral route once daily for 90 days losartan 100 mg oral tablet 09/02/2016 12/01/2016 [...] HC BMI BSA BMI Percentile O2 Sat(%) 08/31/2016 2:49:00 PM 132 mmHg 89 mmHg [...] 2016 9:41AM Nevus Aug 31 2016 2:52PM Payers Insurance Name Company Name Plan Name Plan Number Policy Number Policy Group Number Start Date Medicare RHC Medicare RHC [id number] N/[id number] N/A Medicare Part B Medicare Of [place] [id number] N/A Medicare Part A Medicare - Lab/Xray [id number] N/A History of Encounters Visit Date Visit Type Provider 08/31/2016 Procedures Carroll Chris DO 08/28/[address] Susie Sims DO 08/26/2016 Office visit Tiffany Mccoy MANAGER BUSINESS MANAGEMENT 08/20/2016 Office visit Tiffany Mccoy MANAGER BUSINESS MANAGEMENT 08/19/2016 Office visit Carroll Chris DO 08/13/[address] Padma Humphrey MD 08/04/[address] Susie Sims DO 08/04/2016 Procedures Carroll Chris DO 07/22/2016 Procedures Carroll Chris DO 07/15/2016 Office visit Chris [place] APRN 06/13/2016 Office visit Shirin IRBY 03/11/2016 [facility] Naomi Alejandro MD
--- OUTSIDE RECORDS SUMMARY | 2018-10-05 11:50 | XMS REPORT ---
Author Author Neris Rinaldi Organization [facility] Address [address] [place] [id number] Care Team Providers Care Rail Car Driver Name Role Phone Neris Rinaldi PCP Unavailable Allergies and Adverse Reactions Name [...] Insulin dosing requires individualization. for 90 days metformin 500 mg oral tablet extended release 24 hr 10/06/2016 07/03/2017 take 1 tablet (500 mg) by oral route once daily with the morning and evening meals. pravastatin 20 mg oral tablet 10/08/2016 10/03/2017 [...] per day with morning and evening meals Problem List Description Status Onset Hypertension Active Actinic Keratosis Active 07/22/2016 Actinic Keratosis Active 07/23/2016 Nevus Active 07/23/2016 Actinic Keratosis Active 07/23/2016 Nasal lesion Active 09/02/2016 Vital Signs Date Time BP-Sys(mm[Hg] BP-Ashley(mm[Hg]) HR(bpm) RR(rpm) Temp WT HT HC BMI BSA BMI Percentile O2 Sat(%) 10/08/2016 1:48:00 PM 132 mmHg 86 mmHg [...] in other diseases Oct 08 2016 1:50PM Payers Insurance Name Company Name Plan Name Plan Number Policy Number Policy Group Number Start Date Medicare RHC Medicare RH [id number] N/A [facility] [id number] N/A Medicare Part B Medicare Of [place] [id number] N/A Medicare Part A Medicare - Lab/Xray [id number] N/A History of Encounters Visit Date Visit Type Provider 10/08/2016 Office visit Neris Rinaldi TUBING MACHINE OPERATOR 09/15/[address] Susie Sims DO 09/15/2016 Procedures Carroll Chris DO 08/31/2016 Procedures Carroll Chris DO 08/28/[address] Susie Sims DO 08/26/2016 Office visit Tiffany Mccoy TUBING MACHINE OPERATOR 08/20/2016 Office visit Tiffany Mccoy TUBING MACHINE OPERATOR 08/19/2016 Office visit Carroll Chris DO 08/13/[address] Padma Humphrey MD 08/04/[address] Susie Sims DO 08/04/2016 Procedures Carroll Chris DO 07/22/2016 Procedures Carroll Chris DO 07/15/2016 Office visit Chris [place] APRN 06/13/2016 Office visit Shirin IRBY 03/11/2016 [facility] Naomi Alejandro MD
--- OUTSIDE RECORDS SUMMARY | 2018-10-05 11:51 | XMS REPORT ---
Author Author Susie Sims [facility] Address [address] [place], [place] [phone] Care Team Providers Care Silver Solderer Name Role Phone Susie Sims PCP Allergies [...] per day with morning and evening meals pravastatin 20 mg oral tablet 09/02/2016 12/01/2016 [...] Insulin dosing requires individualization. for 90 days Name Start Date Expiration [...] HC BMI BSA BMI Percentile O2 Sat(%) 09/15/2016 3:20:00 PM 138 mmHg 80 mmHg [...] 2:52PM Medication management Sep 15 2016 3:23PM Payers Insurance Name Company Name Plan Name Plan Number Policy Number Policy Group Number Start Date Medicare RHC Medicare RHC [id number] N/A [facility] [id number] N/A Medicare Part B Medicare Of [place] [id number] N/A Medicare Part A Medicare - Lab/Xray [id number] N/A History of Encounters Visit Date Visit Type Provider 09/15/[address] Susie Sims DO 09/15/2016 Procedures Carroll Chris DO 08/31/2016 Procedures Carroll Chris DO 08/28/[address] Susie Sims DO 08/26/2016 Office visit Tiffany Mccoy USER EXPERIENCE DEVELOPER 08/20/2016 Office visit Tiffnay Mccoy USER EXPERIENCE DEVELOPER 08/19/2016 Office visit Carroll Chris DO 08/13/[address] Padma Humphrey MD 08/04/[address] Susie Sims DO 08/04/2016 Procedures Carroll Chris DO 07/22/2016 Procedures Carroll Chris DO 07/15/2016 Office visit Chris [place] USER EXPERIENCE DEVELOPER 06/13/2016 Office visit Shirin IRBY 03/11/2016 [facility] Naomi Alejandro MD
--- OUTSIDE RECORDS SUMMARY | 2018-10-05 11:51 | XMS REPORT ---
Author Carroll Ponce [facility] Address [address] [place], [place] [address] Care Team Providers Care Labor Arbitrator Name Role Phone Carroll Chris PCP Unavailable [...] Novolog Flexpen 100 unit/mL subcutaneous insulin pen 09/09/2016 09/04/2017 inject 10 units by subcutaneous route with each meal and prn sliding scale Levemir FlexTouch 100 unit/mL (3 mL) subcutaneous insulin pen 09/09/20162017 inject by subcutaneous route per prescriber's instructions. Insulin dosing requires individualization. for 30 days Name Start Date Expiration [...] BMI BSA BMI Percentile O2 Sat(%) 09/15/2016 11:35:00 AM 132 mmHg 89 mmHg [...] 2:52PM Nasal lesion Aug 31 2016 2:52PM Payers Insurance Name Company Name Plan Name Plan Number Policy Number Policy Group Number Start Date Medicare [facility] Medicare [facility] [id number] N[facility] [id number] N/A Medicare Part B Medicare Of [place] [id number] N/A Medicare Part A Medicare - Lab/Xray [id number] N/A History of Encounters Visit Date Visit Type Provider 09/15/2016 Procedures Carroll Chris DO 08/31/2016 Procedures Carroll Chris DO 08/28/[address] Susie Sims DO 08/26/2016 Office visit Tiffany Mccoy VIDEO MANAGER 08/20/2016 Office visit Tiffany Mccoy VIDEO MANAGER 08/19/2016 Office visit Carroll Chris DO 08/13/[address] Padma Humphrey MD 08/04/[address] Susie Sims DO 08/04/2016 Procedures Carroll Chris DO 07/22/2016 Procedures Carroll Chris DO 07/15/2016 Office visit Chris [place] VIDEO MANAGER 06/13/2016 Office visit Shirin IRBY 03/11/2016 [facility] Naomi Alejandro MD
--- OUTSIDE RECORDS SUMMARY | 2018-10-05 11:51 | XMS REPORT ---
Author Author Susie Sims [facility] Address [address] [place], [place] [phone] Care Team Providers Care Refinery Operator Polymerization Plant Name Role Phone Susie Sims PCP Allergies [...] 2 times a day for 30 days Name Start Date Expiration [...] BMI BSA BMI Percentile O2 Sat(%) 08/04/2016 9:02:00 AM 132 mmHg 88 mmHg [...] 2016 9:04AM Osteopenia Aug 12 2016 8:20AM Payers Insurance Name Company Name Plan Name Plan Number Policy Number Policy Group Number Start Date Medicare Part A Medicare RHC [id number] N/A [facility] [id number] N/A Medicare Part B Medicare Of [place] [id number] N/A Medicare Part A Medicare - Lab/Xray [id number] N/A History of Encounters Visit Date Visit Type Provider 08/04/[address] Susie Sims DO 08/04/2016 Procedures Carroll Chris DO 07/22/2016 Procedures Carroll Chris DO 07/15/2016 Office visit Chris [place] APRN 06/13/2016 Office visit Shirin IRBY 03/11/2016 [facility] Naomi Alejandro MD
--- OUTSIDE RECORDS SUMMARY | 2018-10-05 11:52 | XMS REPORT ---
Author Author Anton Laws Organization [facility] Address [address] [place], [place] [id number] Care Team Providers Care Computer Service Technician Name Role Phone Anton Laws PCP Allergies [...] W/MICRO C&S IF IND 11/23/2017 12:00 AM Urine culture and sensitivity 01/26/2018 12:00 AM cystocele 07/09/2016 2:00 PM cystocele [...] [employer] MSD PNEUMOVAX 23 [id number] Intramuscular Left Arm 04/09/2017 11/23/2014 33 History [...] Number Start Date Medicare Part B Medicare [facility] [id number] N/A BCBS [facility] [id number] N/A Medicare RHC Medicare RHC [id number] N/A Medicare Part A Medicare - Lab/Xray [id number] N/A History of Encounters Visit Date Visit Type Provider 01/26/2018 Office visit Anton Laws MD 01/12/2018 Office visit Vel Abbott MD 01/11/2018 Office visit Hemant Dallas DO 12/20/2017 Office visit Tito Adkins MD 12/16/2017 Surgery Tito Adkins MD 12/07/2017 Office visit Tito Adkins MD 12/02/2017 Office visit Vel Abbott MD 11/26/2017 [facility] Naomi Alejandro MD 11/25/2017 [facility] Shahbaz Emerson MD 11/24/2017 Surgery Vel Abbott MD 11/24/2017 [facility] Carroll Chris DO 11/23/2017 Office [...] Office visit Dr. Susie Sims DO 11/05/2016 [facility] Naomi Alejandro MD 11/03/[address] Susie Sims DO 10/08/2016 Office visit Neris Rinaldi BACKGROUND INVESTIGATOR 09/15/[address] Susie Sims DO 09/15/2016 Procedures Carroll Chris DO 08/31/2016 Procedures Carroll Chris DO 08/28/[address] Susie Sims DO 08/26/2016 Office visit Tiffany Mccoy BACKGROUND INVESTIGATOR 08/20/2016 Office visit Tiffany Mccoy BACKGROUND INVESTIGATOR 08/19/2016 Office visit Carroll Chris DO 08/13/[address] Padma Humphrey MD 08/04/[address] Susie Sims DO 08/04/2016 Procedures Carroll Chris DO 07/22/2016 Procedures Carroll Bouman DO 07/15/2016 Office visit Chris [place] BACKGROUND INVESTIGATOR 06/13/2016 Office visit Shirin IRBY 03/11/2016 [facility] Naomi Alejandro MD
--- OUTSIDE RECORDS SUMMARY | 2018-10-05 11:54 | XMS REPORT ---
Author Author Hemant Dallas [facility] Address [address] [place], [place] [phone] Care Team Providers Care Coal Trimmer Machine Operator Name Role Phone Hemant Dallas PCP Allergies [...] one capsule by oral route twice daily Name Start Date Expiration Date SIG [...] oral route once daily for 90 days metoclopramide HCl 10 mg oral tablet 01/11/2018 [...] HC BMI BSA BMI Percentile O2 Sat(%) 01/11/2018 8:01:00 AM 130 mmHg 78 mmHg [...] 12:00 AM X-RAY EXAM SERIES ABDOMEN Reviewed 01/11/2018 12:00 AM COMPREHEN METABOLIC PANEL Returned 01/11/2018 12:00 AM GLYCOSYLATED HEMOGLOBIN TEST Reviewed 01/11/2018 12:00 AM MICROALBUMIN QUANTITATIVE Reviewed 01/11/2018 12:00 AM VITAMIN B-12 Reviewed 01/11/2018 12:00 AM ASSAY THYROID STIM HORMONE Reviewed Results Summary Date and Description Results [...] AA 87 eGFR >60 mL/min/1.73meGFR AA* >60 01/11/2018 9:32 AM MICROALBUMIN UR <0.5 ug/mLTSH 0.730 uIU/mLVITAMIN B12 572.0 pg/mLHGB A1C 6.0 %Est Avg Glucose 125.5 mg/dL History Of Immunizations Name Date Admin Mfg Name Mfg Code Trade Name Lot# Route Inj Vis Given Vis Pub CVX Pneumococcal 04/02/2017 [employer] MSD PNEUMOVAX 23 [id number] Intramuscular Left Arm 04/09/2017 11/23/2014 33 History [...] 2018 8:03AM Constipation Jan 11 2018 8:03AM Payers Insurance Name Company Name Plan Name Plan Number Policy Number Policy Group Number Start Date Medicare RHC Medicare RHC [id number] N/A BCBS [facility] [id number] N/A Medicare Part B Medicare Of [place] [id number] N/A Medicare Part A Medicare - Lab/Xray [id number] N/A History of Encounters Visit Date Visit Type Provider 01/11/2018 Office visit Hemant Dallas DO 12/20/2017 [...] Sims DO 10/08/2016 Office visit Neris Rinaldi FORGING MACHINE OPERATOR 09/15/[address] Susie Sims DO 09/15/2016 Procedures Carroll Aries DO 08/31/2016 Procedures Carroll Aries DO 08/28/[address] Susie Sims DO 08/26/2016 Office visit Tiffany Mccoy FORGING MACHINE OPERATOR 08/20/2016 Office visit Tiffany Mccoy FORGING MACHINE OPERATOR 08/19/2016 Office visit Carroll Chris DO 08/13/[address] Padma Humphrey MD 08/04/[address] Susie Sims DO 08/04/2016 Procedures Carroll Bouman DO 07/22/2016 Procedures Carroll Bouman DO 07/15/2016 Office visit Chris [place] FORGING MACHINE OPERATOR 06/13/2016 Office visit Shirin IRBY 03/11/2016 [facility] Naomi Alejandro MD
--- OUTSIDE RECORDS SUMMARY | 2018-10-05 11:55 | XMS REPORT ---
Author Author Anton Laws Organization [facility] Address [address] [place], [place] [phone] Care Team Providers Care Refrigeration Unit Repairer Name Role Phone Anton Laws PCP Allergies [...] [employer] MSD PNEUMOVAX 23 [id number] Intramuscular Left Arm 04/09/2017 11/23/2014 33 History [...] Number Start Date Medicare Part B Medicare [facility] [id number] N/A BCBS [facility] [id number] N/A Medicare RHC Medicare RHC [id number] N/A Medicare Part A Medicare - Lab/Xray [id number] N/A History of Encounters Visit Date Visit Type Provider 01/26/2018 Office visit Anton Laws MD 01/12/2018 Office visit Vel Abbott MD 01/11/2018 Office visit Hemant Dallas DO 12/20/2017 Office visit Tito Adkins MD 12/16/2017 Surgery Tito Adkins MD 12/07/2017 Office visit Tito Adkins MD 12/02/2017 Office visit Vel Abbott MD 11/26/2017 [facility] Naomi Alejandro MD 11/25/2017 [facility] Shahbaz Emerson MD 11/24/2017 Surgery Vel Abbott MD 11/24/2017 [facility] Carroll Chris DO 11/23/2017 Office visit [...] Office visit Dr. Susie Sims DO 11/05/2016 [facility] Naomi Alejandro MD 11/03/[address] Susie Sims DO 10/08/2016 Office visit Neris Rinaldi WIRE WINDER 09/15/[address] Susie Sims DO 09/15/2016 Procedures Carroll Chris DO 08/31/2016 Procedures Carroll Chris DO 08/28/[address] Susie Sims DO 08/26/2016 Office visit Tiffany Mccoy WIRE WINDER 08/20/2016 Office visit Tiffany Mccoy WIRE WINDER 08/19/2016 Office visit Carroll Chris DO 08/13/[address] Padma Humphrey MD 08/04/[address] Susie Sims DO 08/04/2016 Procedures Carroll Chris DO 07/22/2016 Procedures Carroll Bouman DO 07/15/2016 Office visit Chris [place] WIRE WINDER 06/13/2016 Office visit Shirin IRBY 03/11/2016 [facility] Naomi Alejandro MD
--- OUTSIDE RECORDS SUMMARY | 2018-10-05 11:56 | XMS REPORT ---
Author Susie Li [facility] Address [address] [place], [place] [address] Care Team Providers Care Wood Web Weaving Machine Operator Name Role Phone Susie Sims PCP Allergies [...] AM Mammogram, screening, bilateral 11/11/2017 12:00 AM CBC W/ AUTO DIFF (RFLX MAN DIFF IF IND). 11/16/2017 12:00 AM BMP 11/16/2017 12:00 AM URINALYSIS W/MICRO C&S IF IND 11/16/2017 12:00 AM EKG. 11/16/2017 12:00 AM cystocele 07/09/2016 2:00 PM cystocele [...] [employer] MSD PNEUMOVAX 23 [id number] Intramuscular Left Arm 04/09/2017 11/23/2014 33 History [...] 9:02AM Preop examination Nov 16 2017 1:09PM Payers Insurance Name Company Name Plan Name Plan Number Policy Number Policy Group Number Start Date Medicare RHC Medicare RHC [id number] N/A BCBS [facility] [id number] N/A Medicare Part B Medicare Of [place] [id number] N/A Medicare Part A Medicare - Lab/Xray [id number] N/A History of Encounters Visit Date Visit [...] Office visit Dr. Susie Sims DO 11/05/2016 [facility] Naomi Alejandro MD 11/03/[address] Susie Sims DO 10/08/2016 Office visit Neris Rinaldi DIRECTOR PRIVATE 09/15/[address] Susie Sims DO 09/15/2016 Procedures Carroll Bonicole DO 08/31/2016 Procedures Carroll Bonicole DO 08/28/[address] Susie Sims DO 08/26/2016 Office visit Tiffany Mccoy DIRECTOR PRIVATE 08/20/2016 Office visit Tiffany Mccoy DIRECTOR PRIVATE 08/19/2016 Office visit Carroll Chris DO 08/13/[address] Padma Humphrey MD 08/04/[address] Susie Sims DO 08/04/2016 Procedures Carroll Bonicole DO 07/22/2016 Procedures Carroll Bouman DO 07/15/2016 Office visit Chris [place] DIRECTOR PRIVATE 06/13/2016 Office visit Shirin IRBY 03/11/2016 [facility] Naomi Alejandro MD
--- OUTSIDE RECORDS SUMMARY | 2018-10-05 11:57 | XMS REPORT ---
Author Author Susie Sims [facility] Address [address] [place], [place] [id number] Care Team Providers Care Reeling Machine Operator Name Role Phone Susie Sims [...] meals. Pt c/o pain, and flu-like symptoms. Aspir-81 81 mg oral tablet,delayed release (DR/EC) [...] HC BMI BSA BMI Percentile O2 Sat(%) 05/05/2017 8:45:00 AM 143 mmHg 88 mmHg [...] [employer] MSD Pneumovax 23 [id number] Intramuscular Left Arm 04/09/2017 11/23/2014 33 History [...] arthropods, initial encounter May 05 2017 8:50AM Payers Insurance Name Company Name Plan Name Plan Number Policy Number Policy Group Number Start Date Medicare RHC Medicare RHC [id number] [id number] N/A Medicare Part B Medicare Of [place] [id number] N/A Medicare Part A Medicare - Lab/Xray [id number] N/A History of Encounters Visit Date Visit Type Provider 05/05/[address] Susie Sims DO 04/13/[address] Susie Sims DO 02/03/[address] Susie Sims DO 01/13/[address] Susie Sims DO 12/02/[address] Susie Sims DO 11/05/2016 Bong Alejandro MD 11/03/[address] Susie Sims DO 10/08/2016 Office visit Neris Rinaldi VERTICA ARCHITECT 09/15/[address] Susie Sims DO 09/15/2016 Procedures Carrollbrittni Chris DO 08/31/2016 Procedures Carroll Aries DO 08/28/[address] Susie Sims DO 08/26/2016 Office visit Tiffany Mccoy VERTICA ARCHITECT 08/20/2016 Office visit Tiffany Mccoy VERTICA ARCHITECT 08/19/2016 Office visit Carroll Chris DO 08/13/[address] Padma Humphrey MD 08/04/[address] Susie Sims DO 08/04/2016 Procedures Carroll Chris DO 07/22/2016 Procedures Carroll Aries DO 07/15/2016 Office visit Chris Reyes VERTICA ARCHITECT 06/13/2016 Office visit Shirin IRBY 03/11/2016 [facility] Naomi Alejandro MD
--- OUTSIDE RECORDS SUMMARY | 2018-10-05 11:57 | XMS REPORT ---
Author Author Vel Abbott Organization [facility] Address [address] [place] [id number] Care Team Providers Care Sketch Liner Name Role Phone Vel Abbott PCP Allergies [...] 3:48 PM US URINE CAPACITY MEASURE Reviewed Results [...] >60 mL/min/1.73meGFR AA* >60 01/11/2018 9:32 AM GLUCOSE 109.0 mg/dLSODIUM 143.0 [...] [employer] MSD PNEUMOVAX 23 [id number] Intramuscular Left Arm 04/09/2017 11/23/2014 33 History [...] 8:03AM Vaginal prolapse Jan 12 2018 9:39AM Payers Insurance Name Company Name Plan Name Plan Number Policy Number Policy Group Number Start Date Medicare Part B Medicare [facility] [id number] N/A BCBS Bcbs [facility] [id number] N/A Medicare RHC Medicare RHC [id number] N/A Medicare Part A Medicare - Lab/Xray [id number] N/A History of Encounters Visit Date Visit [...] Laws MD 06/14/[address] Padma Humphery MD 05/05/[address] Susie Sims DO 04/13/[address] Susie Sims DO 02/03/[address] Susie Sims DO 01/13/[address] Susie Sims DO 12/02/[address] Susie Sims DO 11/05/2016 [facility] Naomi Alejandro MD 11/03/[address] Susie Sims DO 10/08/2016 Office visit Neris Rinaldi APRN 09/15/[address] Susie Sims DO 09/15/2016 Procedures Carroll Chris DO 08/31/2016 Procedures Carrollbrittni Chris DO 08/28/[address] Susie Sims DO 08/26/2016 Office visit Tiffany Mccoy PERINATOLOGY PHYSICIAN 08/20/2016 Office visit Tiffany Mccoy PERINATOLOGY PHYSICIAN 08/19/2016 Office visit Carroll Chris DO 08/13/[address] Padma Humphrey MD 08/04/[address] Susie Sims DO 08/04/2016 Procedures Carroll Chris DO 07/22/2016 Procedures Carroll Chris DO 07/15/2016 Office visit Chris Reyes PERINATOLOGY PHYSICIAN 06/13/2016 Office visit Shirin IRBY 03/11/2016 [facility] Naomi Alejandro MD
--- OUTSIDE RECORDS SUMMARY | 2018-10-05 11:58 | XMS REPORT ---
Author Author Susie Sims [facility] Address [address] [place], [place] [id number] Care Team Providers Care Keeler Polygraph Operator Name Role Phone Susie Sims PCP Allergies and Adverse Reactions Name Reaction Notes codeine sulfate nausea/abd pain Epinephrine fast heart beat Decongestant nausea Januvia made her sick Actos made her sick Victoza pancreatitis lisinopril Plan of Treatment Planned Activity Comments Planned Date Planned Time Plan/Goal HEMOGLOBIN A1C 02/03/2017 12:00 AM Lumbar Spine 2-3 Views - MOB 04/13/2017 12:00 AM CMP 04/13/2017 12:00 AM HEMOGLOBIN A1C 04/13/2017 12:00 AM cystocele 07/09/2016 2:00 PM cystocele [...] per day before meals for 30 days losartan 100 mg oral tablet 02/08/2017 08/07/2017 take 1 tablet (100 mg) by oral route once daily for 90 days losartan 100 mg oral tablet 02/10/2017 TAKE ONE TABLET BY MOUTH ONCE DAILY Aspir-81 81 mg oral tablet,delayed release (DR/EC) take 1 tablet (81 mg ) by oral route once daily Name Start [...] HC BMI BSA BMI Percentile O2 Sat(%) 04/13/2017 8:11:00 AM 150 mmHg 88 mmHg [...] Glucose 162.8 mg/ dL History Of Immunizations Name Date Admin Mfg Name Mfg Code Trade Name Lot# Route Inj Vis Given Vis Pub CVX Pneumococcal 04/02/2017 [employer] MSD Pneumovax 23 [id number] Intramuscular Left Arm 04/09/2017 11/23/2014 33 History [...] 2017 8:17AM Myalgia Apr 13 2017 8:17AM Payers Insurance Name Company Name Plan Name Plan Number Policy Number Policy Group Number Start Date Medicare RHC Medicare RHC [id number] N/A BCBS Bcbs [facility] [id number] N/A Medicare Part B Medicare Of [place] [id number] N/A Medicare Part A Medicare - Lab/Xray [id number] N/A History of Encounters Visit Date Visit Type Provider 04/13/[address] Susie Sims DO 02/03/[address] Susie Sims DO 01/13/[address] Susie Sims DO 12/02/[address] Susie Sims DO 11/05/2016 [facility] Naomi Alejandro MD 11/03/[address] Susie Sims DO 10/08/2016 Office visit Neris Rinaldi FIELD SALES CONSULTANT 09/15/[address] Susie Sims DO 09/15/2016 Procedures Carroll Chris DO 08/31/2016 Procedures Carroll Chris DO 08/28/[address] Susie Sims DO 08/26/2016 Office visit Tiffany Mccoy FIELD SALES CONSULTANT 08/20/2016 Office visit Tiffany Mccoy FIELD SALES CONSULTANT 08/19/2016 Office visit Carroll Chris DO 08/13/[address] Padma Humphrey MD 08/04/[address] Susie Sims DO 08/04/2016 Procedures Carroll Chris DO 07/22/2016 Procedures Carroll Aries DO 07/15/2016 Office visit Chris Reyes FIELD SALES CONSULTANT 06/13/2016 Office visit Shirin IRBY 03/11/2016 [facility] Naomi Alejandro MD
--- OUTSIDE RECORDS SUMMARY | 2018-10-05 11:58 | XMS REPORT ---
Author Author Susie Sims [facility] Address [address] [place], [place] [id number] Care Team Providers Care Healthcare Receptionist Name Role Phone Susie Sims PCP Allergies [...] Number Start Date Medicare RHC Medicare RHC [id number] N/A BCBS Bcbs [facility] [id number] N/A Medicare Part B Medicare Of [place] [id number] N/A Medicare Part A Medicare - Lab/Xray [id number] N/A History of Encounters Visit Date Visit Type Provider 08/28/[address] Susie Sims DO 08/26/2016 Office visit Tiffany Mccoy KEYMODULE ASSEMBLY MACHINE TENDER 08/20/2016 Office visit Tiffany Mccoy KEYMODULE ASSEMBLY MACHINE TENDER 08/19/2016 Office visit Carroll Chris DO 08/13/[address] Padma Humphrey MD 08/04/[address] Susie Sims DO 08/04/2016 Procedures Carroll Chris DO 07/22/2016 Procedures Carroll Chris DO 07/15/2016 Office visit Chris Reyes KEYMODULE ASSEMBLY MACHINE TENDER 06/13/2016 Office visit Shirin IRBY 03/11/2016 [facility] Naomi Alejandro MD
--- OUTSIDE RECORDS SUMMARY | 2018-10-05 11:59 | XMS REPORT ---
Author Author Susie Sims [facility] Address [address] [place], [place] [id number] Care Team Providers Care Vertical Lathe Operator Name Role Phone Susie Sims PCP [...] 90 days glipizide 10 mg oral tablet 04/20/2017 take 1 tablet (10 mg) by oral route 2 times per day before meals for 30 days Aspir-81 81 mg oral tablet,delayed release (DR/EC) 06/21/2017 take 1 tablet (81 mg) by oral route once daily for 90 days ondansetron 4 mg oral tablet,disintegrating 07/07/2017 dissolve 1 tablet by oral route As needed for 30 days pravastatin 20 mg oral tablet 08/04/2017 11/02/2017 take 1 tablet (20 mg) by oral route once daily for 90 days omeprazole 20 mg oral capsule,delayed release(DR/EC) 08/04/2017 take 1 capsule (20 mg) by oral route daily before a meal Name Start Date Expiration Date SIG Comments [...] TAKE ONE TABLET BY MOUTH ONCE DAILY Discontinued Name Start Date Discontinued Date SIG [...] [employer] MSD Pneumovax 23 [id number] Intramuscular Left Arm 04/09/2017 11/23/2014 33 History [...] Number Start Date Medicare RHC Medicare RHC [id number] N/A BCBS Bcbs [facility] [id number] N/A Medicare Part B Medicare Of [place] [id number] N/A Medicare Part A Medicare - Lab/Xray [id number] N/A History of Encounters Visit Date Visit [...] Sims DO 08/26/2016 Office visit Tiffany Mccoy COMMERCIAL CORRESPONDENT 08/20/2016 Office visit Tiffany Mccoy COMMERCIAL CORRESPONDENT 08/19/2016 Office visit Carroll Chris DO 08/13/[address] Padma Humphrey MD 08/04/[address] Susie Sims DO 08/04/2016 Procedures Carroll Bouman DO 07/22/2016 Procedures Carroll Bouman DO 07/15/2016 Office visit Chris Reyes COMMERCIAL CORRESPONDENT 06/13/2016 Office visit Shirin IRBY 03/11/2016 [facility] Naomi Alejandro MD
--- OUTSIDE RECORDS SUMMARY | 2018-10-05 12:00 | XMS REPORT ---
Author Carroll Ponce [facility] Address [address] [place], [place] [address] Care Team Providers Care Low Heel Builder Name Role Phone Carroll Chris PCP Unavailable [...] Actinic keratosis Active 07/23/2016 Nevus Active 07/23/2016 Vital Signs Date Time BP-Sys(mm[Hg] [...] region Hypercholesteremia Actinic keratosis 07/23/2016 Nevus 07/23/2016 Acute cystitis with hematuria Jun 13 2016 10:42AM Cystocele, unspecified cystocele location Jun 13 2016 10:42AM Lesion of nose Jul 22 2016 3:14PM Actinic Keratosis Jul 22 2016 3:38PM Benign nevus Jul 22 2016 3:38PM Actinic keratosis Jul 15 2016 5:55PM Nevus Jul 15 2016 5:55PM Payers Insurance Name Company Name Plan Name Plan Number Policy Number Policy Group Number Start Date Medicare Part A Medicare RHC [id number] N/A [facility] [id number] N/A Medicare Part B Medicare Of [place] [id number] N/A Medicare Part A Medicare - Lab/Xray [id number] N/A History of Encounters Visit Date Visit Type Provider 07/22/2016 Procedures Carroll Chris DO 07/15/2016 Office visit Chris Reyes APRN 06/13/2016 Office visit Shirin IRBY 03/11/2016 [facility] Naomi Alejandro MD
--- OUTSIDE RECORDS SUMMARY | 2018-10-05 12:00 | XMS REPORT ---
Author Carroll Ponce [facility] Address [address] [place], [place] [address] Care Team Providers Care Scooter Mechanic Name Role Phone Carroll Chris PCP Unavailable [...] Number Start Date Medicare RHC Medicare RHC [id number] [id number] N/A Medicare Part B Medicare Of [place] [id number] N/A Medicare Part A Medicare - Lab/Xray [id number] N/A History of Encounters Visit Date Visit Type Provider 08/31/2016 Procedures Carroll Crhis DO 08/28/[address] Susie Sims DO 08/26/2016 Office visit Tiffany Mccoy TALENT ACQUISITION DIRECTOR 08/20/2016 Office visit Tiffany Mccoy TALENT ACQUISITION DIRECTOR 08/19/2016 Office visit Carroll hCris DO 08/13/[address] Padma Humphrey MD 08/04/[address] Susie Sims DO 08/04/2016 Procedures Carroll Chris DO 07/22/2016 Procedures Carroll Chris DO 07/15/2016 Office visit Chris Reyes APRN 06/13/2016 Office visit Shirin IRBY 03/11/2016 [facility] Naomi Alejandro MD
--- OUTSIDE RECORDS SUMMARY | 2018-10-05 12:00 | XMS REPORT ---
Author Carroll Ponce [facility] Address [address] [place], [place] [phone] Care Team Providers Care Rod Filler Name Role Phone Carroll Chris PCP Unavailable [...] Number Start Date Medicare RHC Medicare RHC [id number] N/[facility] [id number] N/A Medicare Part B Medicare Of [place] [id number] N/A Medicare Part A Medicare - Lab/Xray [id number] N/A History of Encounters Visit Date Visit Type Provider 08/31/2016 Christiano Chris DO 08/28/[address] Susie Sims DO 08/26/2016 Office visit Tiffany Mccoy MOBILE LOUNGE DRIVER OR OPERATOR 08/20/2016 Office visit Tiffany Mccoy MOBILE LOUNGE DRIVER OR OPERATOR 08/19/2016 Office visit Carroll Chris DO 08/13/[address] Padma Humphrey MD 08/04/[address] Susie Sims DO 08/04/2016 Procedures Carroll Chris DO 07/22/2016 Procedures Carroll Chris DO 07/15/2016 Office visit Chris Reyes MOBILE LOUNGE DRIVER OR OPERATOR 06/13/2016 Office visit Shirin IRBY 03/11/2016 [facility] Naomi Alejandro MD
--- OUTSIDE RECORDS SUMMARY | 2018-10-05 12:01 | XMS REPORT ---
Author Author Susie Sims [facility] Address [address] [place], [place] [address] Care Team Providers Care Helicopter Engineer Name Role Phone Susie Sims PCP Allergies and Adverse Reactions Name Reaction Notes codeine sulfate nausea/abd pain Epinephrine fast heart beat Decongestant nausea Januvia made her sick Actos made her sick Victoza pancreatitis lisinopril Plan of Treatment Planned Activity Comments Planned Date Planned Time Plan/Goal HEMOGLOBIN A1C 02/03/2017 12:00 AM HEMOGLOBIN A1C 10/06/2017 12:00 AM Urine microalbumin measurement 10/06/2017 12:00 AM Holter monitoring 10/06/2017 12:00 AM Treadmill Cardiolite 10/06/2017 12:00 AM cystocele 07/09/2016 2:00 PM [...] [employer] MSD Pneumovax 23 [id number] Intramuscular Left Arm 04/09/2017 11/23/2014 33 History [...] 2017 10:07AM Palpitations Oct 06 2017 11:23AM Payers Insurance Name Company Name Plan Name Plan Number Policy Number Policy Group Number Start Date Medicare RHC Medicare RHC [id number] N/A BCBS [facility] [place] [id number] N/A Medicare Part B Medicare Of [place] [id number] N/A Medicare Part A Medicare - Lab/Xray [id number] N/A History of Encounters Visit Date Visit [...] Susie Sims DO 12/02/[address] Susei Sims DO 11/05/2016 [facility] Naomi Alejandro MD 11/03/[address] Susie Sims DO 10/08/2016 Office visit Neris Rinaldi PERMIT SPECIALIST 09/15/[address] Susie Sims DO 09/15/2016 Procedures Carroll Chris DO 08/31/2016 Procedures Carroll Chris DO 08/28/[address] Susie Sims DO 08/26/2016 Office visit Tiffany Mccoy PERMIT SPECIALIST 08/20/2016 Office visit Tiffany Mccoy PERMIT SPECIALIST 08/19/2016 Office visit Carroll Chris DO 08/13/[address] Padma Humphrey MD 08/04/[address] Susie Sims DO 08/04/2016 Procedures Carroll Chris DO 07/22/2016 Procedures Carroll Aries DO 07/15/2016 Office visit Chris Reyes PERMIT SPECIALIST 06/13/2016 Office visit Shirin IRBY 03/11/2016 [facility] Naomi Alejandro MD
--- OUTSIDE RECORDS SUMMARY | 2018-10-05 12:02 | XMS REPORT ---
Author Author Susie Sims [facility] Address [address] [place], [place] [phone] Care Team Providers Care Supervisor Molding Name Role Phone Susie Sims PCP Allergies and Adverse Reactions Name Reaction Notes codeine sulfate nausea/abd pain Epinephrine fast heart beat Decongestant nausea Eanuvia made her sick Actos made her sick Victoza pancreatitis lisinopril Plan of Treatment Planned Activity Comments Planned Date Planned Time Plan/Goal HEMOGLOBIN A1C 02/03/2017 12:00 AM HEMOGLOBIN A1C 10/04/2017 12:00 AM LIPID PANEL 10/04/2017 12:00 AM CMP 10/04/2017 12:00 AM CBC W/ AUTO DIFF (RFLX MAN DIFF IF IND). 10/04/2017 12:00 AM cystocele 07/09/2016 2:00 PM cystocele [...] supply. Aspir-81 81 mg oral tablet,delayed release (/EC) 06/21/2017 take 1 tablet (81 mg) by [...] MEAL(S) aspirin 81 mg oral tablet,delayed release (/EC) 09/27/2017 09/27/2017 TAKE ONE TABLET BY MOUTH [...] TEST Reviewed 08/05/2017 12:00 AM Consult/Referral Reviewed Results Summary Date and Description Results [...] [employer] MSD Pneumovax 23 [id number] Intramuscular Left Arm 04/09/2017 11/23/2014 33 History [...] 2017 11:30AM Hyperlipidemia Oct 04 2017 11:30AM Payers Insurance Name Company Name Plan Name Plan Number Policy Number Policy Group Number Start Date Medicare RHC Medicare RHC [id number] N/A [facility] [id number] N/A Medicare Part B Medicare Of [place] [id number] N/A Medicare Part A Medicare - Lab/Xray [id number] N/A History of Encounters Visit Date Visit [...] Office visit Dr. Susie Sims DO 11/05/2016 [facility] Naomi Alejandro MD 11/03/[address] Susie Sims DO 10/08/2016 Office visit Neris Rinaldi CHARGE COORDINATOR 09/15/[address] Susie Sims DO 09/15/2016 Procedures Carroll Bouman DO 08/31/2016 Procedures Carroll Bouman DO 08/28/[address] Susie Sims DO 08/26/2016 Office visit Tiffany Mccoy CHARGE COORDINATOR 08/20/2016 Office visit Tiffany Mccoy CHARGE COORDINATOR 08/19/2016 Office visit Carroll Chris DO 08/13/[address] Padma Humphrey MD 08/04/[address] Susie Sims DO 08/04/2016 Procedures Carroll Bonicole DO 07/22/2016 Procedures Carroll Bouman DO 07/15/2016 Office visit Chris Reyes CHARGE COORDINATOR 06/13/2016 Office visit Shirin IRBY 03/11/2016 [facility] Naomi Alejandro MD
--- OUTSIDE RECORDS SUMMARY | 2018-10-05 12:03 | XMS REPORT ---
Author Author Vel Abbott Organization [facility] Address [address] [place] [id number] Care Team Providers Care Chalk Cutter Name Role Phone Vel Abbott PCP Allergies [...] [employer] MSD PNEUMOVAX 23 [id number] Intramuscular Left Arm 04/09/2017 11/23/2014 33 History [...] Date Medicare Part B Medicare Of [place] [id number] N/[id number] N/A Medicare RHC Medicare RHC [id number] N/A Medicare Part A Medicare - Lab/Xray [id number] N/A History of Encounters Visit Date Visit [...] Sims DO 10/08/2016 Office visit Neris Rinaldi AUTH SPECIALIST 09/15/[address] Susie Sims DO 09/15/2016 Procedures Carroll Chris DO 08/31/2016 Procedures Carroll Chris DO 08/28/[address] Susie Sims DO 08/26/2016 Office visit Tiffany Mccoy AUTH SPECIALIST 08/20/2016 Office visit Tiffany Mccoy AUTH SPECIALIST 08/19/2016 Office visit Carroll Chris DO 08/13/[address] Padma Humphrey MD 08/04/[address] Susie Sims DO 08/04/2016 Procedures Carroll Chris DO 07/22/2016 Procedures Carroll Chris DO 07/15/2016 Office visit Chris Reyes AUTH SPECIALIST 06/13/2016 Office visit Shirin IRBY 03/11/2016 [facility] Naomi Alejandro MD
--- OUTSIDE RECORDS SUMMARY | 2018-10-05 12:04 | XMS REPORT ---
Author Author Susie Sims [facility] Address [address] [place], [place] [address] Care Team Providers Care Credit Coordinator Name Role Phone Susie Sims PCP [...] [employer] MSD Pneumovax 23 [id number] Intramuscular Left Arm 04/09/2017 11/23/2014 33 History [...] Number Policy Group Number Start Date Medicare RH Medicare RH [id number] N/A [facility] [id number] N/A Medicare Part B Medicare Of [place] [id number] N/A Medicare Part A Medicare - Lab/Xray [id number] N/A History of Encounters Visit Date Visit [...] Sims DO 08/26/2016 Office visit Tiffany Mccoy FWS FACULTY ASSISTANT 08/20/2016 Office visit Tiffany Mccoy FWS FACULTY ASSISTANT 08/19/2016 Office visit Carroll Chris DO 08/13/[address] Padma Humphrey MD 08/04/[address] Susie Sims DO 08/04/2016 Procedures Carrollbrittni Chris DO 07/22/2016 Procedures Carroll Aries DO 07/15/2016 Office visit Chris Reyes FWS FACULTY ASSISTANT 06/13/2016 Office visit Shirin IRBY 03/11/2016 [facility] Naomi Alejandro MD
--- OUTSIDE RECORDS SUMMARY | 2018-10-05 12:05 | XMS REPORT ---
Author Author Tito Adkins [facility] Address [address] [place], [place] [address] Care Team Providers Care Database Reporting Consultant Name Role Phone Tito Adkins PCP Allergies [...] [employer] MSD PNEUMOVAX 23 [id number] Intramuscular Left Arm 04/09/2017 11/23/2014 33 History [...] Number Policy Group Number Start Date Medicare [facility] Medicare [facility] [id number] N/A [facility] [id number] N/A Medicare Part B Medicare Of [place] [id number] N/A Medicare Part A Medicare - Lab/Xray [id number] N/A History of Encounters Visit Date Visit Type Provider 11/23/2017 Office visit Tito Adkins MD 11/11/2017 [...] Dr. Susie Sims DO 11/05/2016 [facility] Naomi Alejandro MD 11/03/[address] Susie Sims DO 10/08/2016 Office visit Neris Rinaldi ROOFING APPRENTICE 09/15/[address] Susie Sims DO 09/15/2016 Procedures Carroll Chris DO 08/31/2016 Procedures Carroll Chris DO 08/28/[address] Susie Sims DO 08/26/2016 Office visit Tiffany Mccoy ROOFING APPRENTICE 08/20/2016 Office visit Tiffany Mccoy ROOFING APPRENTICE 08/19/2016 Office visit Carroll Chris DO 08/13/[address] Padma Humphrey MD 08/04/[address] Susie Sims DO 08/04/2016 Procedures Carroll Chris DO 07/22/2016 Procedures Carroll Bonicole DO 07/15/2016 Office visit Chris Reyes ROOFING APPRENTICE 06/13/2016 Office visit Shirin IRBY 03/11/2016 [facility] Naomi Alejandro MD
--- OUTSIDE RECORDS SUMMARY | 2018-10-05 12:06 | XMS REPORT ---
Author Author Susie Sims [facility] Address [address] [place], [place] [address] Care Team Providers Care Assembling Machine Operator Name Role Phone Susie Sims PCP Allergies and Adverse Reactions Name Reaction Notes codeine sulfate nausea/abd pain Epinephrine fast heart beat Decongestant nausea Januvia made her sick Actos made her sick Victoza pancreatitis lisinopril Plan of Treatment Planned Activity Comments Planned Date Planned Time Plan/Goal HEMOGLOBIN A1C 02/03/2017 12:00 AM Holter monitoring 10/06/2017 12:00 AM HEMOGLOBIN A1C 10/06/2017 12:00 AM [...] once daily for 90 days Novolog Flexpen U-100 Insulin 100 unit/mL [...] W/AUTO DIFF WBC Returned 10/06/2017 12:00 AM MYOCARDIAL SPECT MULTIPLE STUDIES Returned Results Summary Date and Description Results [...] [employer] MSD Pneumovax 23 [id number] Intramuscular Left Arm 04/09/2017 11/23/2014 33 History [...] neuropathy, unspecified Oct 06 2017 10: 07AM Payers Insurance Name Company Name Plan Name Plan Number Policy Number Policy Group Number Start Date Medicare RHC Medicare RHC [id number] N/A BCBS Bcbs [facility] [id number] N/A Medicare Part B Medicare [facility] [id number] N/A Medicare Part A Medicare - Lab/Xray [id number] N/A History of Encounters Visit Date Visit [...] Sims DO 10/08/2016 Office visit Neris Rinaldi HOME DELIVERY DRIVER 09/15/[address] Susie Sims DO 09/15/2016 Procedures Carroll Chris DO 08/31/2016 Procedures Carroll Chris DO 08/28/[address] Susie Sims DO 08/26/2016 Office visit Tiffany Mccoy HOME DELIVERY DRIVER 08/20/2016 Office visit Tiffany Mccoy HOME DELIVERY DRIVER 08/19/2016 Office visit Carroll Chris DO 08/13/[address] Padma Humphrey MD 08/04/[address] Susie Sims DO 08/04/2016 Procedures Carroll Chris DO 07/22/2016 Procedures Carroll Aries DO 07/15/2016 Office visit Chris Reyes HOME DELIVERY DRIVER 06/13/2016 Office visit Shirin IRBY 03/11/2016 [facility] aNomi Alejandro MD
--- OUTSIDE RECORDS SUMMARY | 2018-10-05 12:07 | XMS REPORT ---
Author Author Vel Abbott Organization [facility] Address [address] [place] [id number] Care Team Providers Care Taper/Finisher Name Role Phone Vel Abbott PCP Allergies [...] HC BMI BSA BMI Percentile O2 Sat(%) 10/21/2017 10:41:00 AM 140 mmHg 82 mmHg [...] [employer] MSD PNEUMOVAX 23 [id number] Intramuscular Left Arm 04/09/2017 11/23/2014 33 History [...] 10:43AM Vaginal prolapse Nov 04 2017 9:39AM Payers Insurance Name Company Name Plan Name Plan Number Policy Number Policy Group Number Start Date Medicare Part B Medicare Of [place] [id number] N/A BCBS Bc[facility] [id number] N/A Medicare RHC Medicare RHC [id number] N/A Medicare Part A Medicare - Lab/Xray [id number] N/A History of Encounters Visit Date Visit Type Provider 11/04/2017 Procedures Vel Abbott MD 10/21/2017 Office [...] Office visit Dr. Susie Sims DO 11/05/2016 [facility] Naomi Alejandro MD 11/03/[address] Susie Sims DO 10/08/2016 Office visit Neris Rinaldi APRN 09/15/[address] Susie Sims DO 09/15/2016 Procedures Carroll Bouman DO 08/31/2016 Procedures Carroll Bouman DO 08/28/[address] Susie Sims DO 08/26/2016 Office visit Tiffany Mccoy HYDRAULIC TESTER 08/20/2016 Office visit Tiffany Mccoy HYDRAULIC TESTER 08/19/2016 Office visit Carroll Chris DO 08/13/[address] Padma Humphrey MD 08/04/[address] Susie Sims DO 08/04/2016 Procedures Carroll Bouman DO 07/22/2016 Procedures Carroll Bouman DO 07/15/2016 Office visit Chris [place] HYDRAULIC TESTER 06/13/2016 Office visit Shirin IRBY 03/11/2016 [facility] Naomi Alejandro MD
--- OUTSIDE RECORDS SUMMARY | 2018-10-05 12:07 | XMS REPORT ---
Author Susie Li [facility] Address [address] [place], [place] [id number] Care Team Providers Care Preparole Counseling Aide Name Role Phone Susie Sims PCP Allergies [...] rpm 96.7 F 196.5 lbs 74 in 25.2288 kg/m 2.1572 m 96 % 07/07/2017 10:06:00 AM [...] [employer] MSD PNEUMOVAX 23 [id number] Intramuscular Left Arm 04/09/2017 11/23/2014 33 History [...] Number Start Date Medicare RHC Medicare RHC [id number] N/A [facility] [id number] N/A Medicare Part B Medicare Of [place] [id number] N/A Medicare Part A Medicare - Lab/Xray [id number] N/A History of Encounters Visit Date Visit Type Provider 11/11/[address] Susie Sims DO 11/04/2017 Procedures Vel Abbott MD 10/21/2017 Office visit Vel Abbott MD 10/06/[address] Susie iSms DO 07/07/[address] Susie Sims [...] Sims DO 10/08/2016 Office visit Neris Rinaldi BATTERY PLATE ASSEMBLER 09/15/[address] Susie Sims DO 09/15/2016 Procedures Carroll Bonicole DO 08/31/2016 Procedures Carroll Aries DO 08/28/[address] Susie Sims DO 08/26/2016 Office visit Tiffany Mccoy BATTERY PLATE ASSEMBLER 08/20/2016 Office visit Tiffany Mccoy BATTERY PLATE ASSEMBLER 08/19/2016 Office visit Carroll Chris DO 08/13/[address] Padma Humphrey MD 08/04/[address] Susie Sims DO 08/04/2016 Procedures Carroll Bonicole DO 07/22/2016 Procedures Carroll Bouman DO 07/15/2016 Office visit Chris [place] BATTERY PLATE ASSEMBLER 06/13/2016 Office visit Shirin IRBY 03/11/2016 [facility] Naomi Alejandro MD
--- OUTSIDE RECORDS SUMMARY | 2018-10-05 12:08 | XMS REPORT ---
Author Author Susie Sims [facility] Address [address] [place], [place] [id number] Care Team Providers Care Car And Yard Supervisor Name Role Phone Susie Sims PCP Allergies and Adverse Reactions Name Reaction Notes codeine sulfate nausea/abd pain Epinephrine fast heart beat Plan of Treatment Planned Activity Comments Planned Date Planned Time Plan/Goal DEXA 08/04/2016 12:00 AM HEMOGLOBIN A1C 08/04/2016 12:00 AM Urine microalbumin measurement 08/04/2016 12:00 AM CBC W/ AUTO DIFF (RFLX MAN DIFF IF IND). 08/04/2016 12:00 AM CMP 08/04/2016 12:00 AM Free T4 08/04/2016 12:00 AM TSH 08/04/2016 12:00 AM URINALYSIS ROUTINE C&S IF IND 08/04/2016 12:00 AM cystocele 07/09/2016 2:00 PM Medications Active Name [...] once daily metformin 500 mg oral tablet Name Start Date Expiration Date SIG Comments [...] 10:45AM Reflux esophagitis Aug 04 2016 9:04AM Payers Insurance Name Company Name Plan Name Plan Number Policy Number Policy Group Number Start Date Medicare Part A Medicare RHC [id number] N/A [id number] N/A Medicare Part B Medicare Of [place] [id number] N/A Medicare Part A Medicare - Lab/Xray [id number] N/A History of Encounters Visit Date Visit Type Provider 08/04/[address] Susie Sims DO 08/04/2016 Procedures Carroll Chris DO 07/22/2016 Procedures Carroll Chris DO 07/15/2016 Office visit Chris [place] APRN 06/13/2016 Office visit Shirin IRBY 03/11/2016 [facility] Naomi Alejandro MD
--- OUTSIDE RECORDS SUMMARY | 2018-10-05 12:09 | XMS REPORT ---
Author Author Susie Sims [facility] Address [address] [place], [place] [phone] Care Team Providers Care Clinical Research Monitor Name Role Phone Susie Sims PCP AJ ALONSO PreferredProvider Unavailable Allergies and Adverse Reactions Name Reaction Notes codeine sulfate nausea/abd pain Epinephrine fast heart beat Plan of Treatment Planned Activity Comments Planned Date Planned Time Plan/Goal HEMOGLOBIN A1C 08/04/2016 12:00 AM Urine microalbumin measurement 08/04/2016 12:00 AM CBC W/ AUTO DIFF (RFLX MAN DIFF IF IND). 08/04/2016 12:00 AM CMP 08/04/2016 12:00 AM Free T4 08/04/2016 12:00 AM TSH 08/04/2016 12:00 AM URINALYSIS ROUTINE C&S IF IND 08/04/2016 12:00 AM DEXA 08/04/2016 12:00 AM cystocele 07/09/2016 2:00 PM [...] 2016 10:45AM Postmenopausal Aug 04 2016 10:45AM Payers Insurance Name Company Name Plan Name Plan Number Policy Number Policy Group Number Start Date Medicare Part A Medicare RHC [id number] N/A [facility] [id number] N/A Medicare Part B Medicare Of [place] [id number] N/A Medicare Part A Medicare - Lab/Xray [id number] N/A History of Encounters Visit Date Visit Type Provider 08/04/[address] Susie Sims DO 08/04/2016 Procedures Carroll Chris DO 07/22/2016 Procedures Carroll Chris DO 07/15/2016 Office visit Chris [place] APRN 06/13/2016 Office visit Shirin IRBY 03/11/2016 [facility] Naomi Alejandro MD
--- OUTSIDE RECORDS SUMMARY | 2018-10-05 12:09 | XMS REPORT ---
Author Author Vel Abbott Organization [facility] Address [address] [place] [id number] Care Team Providers Care Editor Magazine Name Role Phone Vel Abbott PCP Allergies [...] 12:00 AM URINALYSIS W/MICRO C&S IF IND 10/21/2017 12:00 AM cystocele 07/09/2016 2:00 PM cystocele [...] [employer] MSD Pneumovax 23 [id number] Intramuscular Left Arm 04/09/2017 11/23/2014 33 History [...] 10:43AM Atrophic vaginitis Oct 21 2017 10:43AM Payers Insurance Name Company Name Plan Name Plan Number Policy Number Policy Group Number Start Date Medicare [facility] Medicare [facility] [id number] N/A BCBS Bcbs [facility] [id number] N/A Medicare Part B Medicare Of [place] [id number] N/A Medicare Part A Medicare - Lab/Xray [id number] N/A History of Encounters Visit Date Visit Type Provider 10/21/2017 Office visit Vel Abbott MD 10/06/2017 [...] Sims DO 10/08/2016 Office visit Neris Rinaldi CHIEF CUSTOMER OFFICER 09/15/[address] Susie Sims DO 09/15/2016 Procedures Carroll Chris DO 08/31/2016 Procedures Carroll Chris DO 08/28/[address] Susie Sims DO 08/26/2016 Office visit Tiffany Mccoy CHIEF CUSTOMER OFFICER 08/20/2016 Office visit Tiffany Mccoy CHIEF CUSTOMER OFFICER 08/19/2016 Office visit Carroll Chris DO 08/13/[address] Padma Humphrey MD 08/04/[address] Susie Sims DO 08/04/2016 Procedures Carroll Chris DO 07/22/2016 Procedures Carroll Chris DO 07/15/2016 Office visit Chris [place] APRN 06/13/2016 Office visit Shirin IRBY 03/11/2016 [facility] Naomi Alejandro MD
--- OUTSIDE RECORDS SUMMARY | 2018-10-05 12:10 | XMS REPORT ---
Author Tito Arciniega [facility] Address [address] [place], [place] [address] Care Team Providers Care Spring Fitter Helper Name Role Phone Tito Adkins PCP Allergies [...] HC BMI BSA BMI Percentile O2 Sat(%) 12/07/2017 2:02:00 PM 132 mmHg 82 mmHg 81 bpm 16 rpm 98.6 F 182 lbs 61 in 34.3882 kg/m 1.885 m 12/02/2017 12:51:00 PM 128 mmHg 70 mmHg 81 bpm 14 rpm 98.2 F 188 lbs 95 % 11/23/2017 2:15:00 PM 144 mmHg 80 mmHg 73 bpm 20 rpm 98.4 F 188 lbs 61 in 35.52 kg/m2 1.9158 m 94 % 11/11/2017 9:00:00 AM 122 mmHg 78 mmHg 76 bpm 18 rpm 98.2 F 189.375 lbs 61 in 35.7817 kg/m 1.92 m2 96 % 10/21/2017 10:41:00 AM 140 mmHg 82 mmHg 75 bpm 18 rpm 97.4 F 193.375 lbs 61 in 36.54 kg/m2 1.943 m 96 % 10/06/2017 10:04:00 AM [...] AA 87 eGFR >60 mL/min/1.73meGFR AA* >60 History Of Immunizations Name Date Admin Mfg Name Mfg Code Trade Name Lot# Route Inj Vis Given Vis Pub CVX Pneumococcal 04/02/2017 [employer] MSD PNEUMOVAX 23 [id number] Intramuscular Left Arm 04/09/2017 11/23/2014 33 History [...] 2017 2:07PM Constipation Dec 07 2017 2:07PM Payers Insurance Name Company Name Plan Name Plan Number Policy Number Policy Group Number Start Date Medicare Part B Medicare Of [place] [id number] N/A BCBS [facility] [id number] N/A Medicare [facility] Medicare [facility] [id number] N/A Medicare Part A Medicare - Lab/Xray [id number] N/A History of Encounters Visit Date Visit [...] Sims DO 10/08/2016 Office visit Neris Rinaldi LICENSED ELECTRICIAN 09/15/[address] Susie Sims DO 09/15/2016 Procedures Carroll Chris DO 08/31/2016 Procedures Carroll Chris DO 08/28/[address] Susie Sims DO 08/26/2016 Office visit Tiffany Mccoy LICENSED ELECTRICIAN 08/20/2016 Office visit Tiffany Mccoy LICENSED ELECTRICIAN 08/19/2016 Office visit Carroll Chris DO 08/13/[address] Padma Humphrey MD 08/04/[address] Susie Sims DO 08/04/2016 Procedures Carroll Bonicole DO 07/22/2016 Procedures Carroll Bouman DO 07/15/2016 Office visit Chris [place] LICENSED ELECTRICIAN 06/13/2016 Office visit Shirin IRBY 03/11/2016 [facility] Naomi Alejandro MD
--- OUTSIDE RECORDS SUMMARY | 2018-10-05 12:10 | XMS REPORT ---
Author Author Susie Sims [facility] Address [address] [place], [place] [phone] Care Team Providers Care Vest Baster Name Role Phone Susie Sims PCP Allergies [...] DESTRUCT PREMALG LESION Reviewed 08/04/2016 12:00 AM DXA BONE DENSITY [...] Number Start Date Medicare Part A Medicare [facility] [id number] N/A BCBS [facility] [id number] N/A Medicare Part B Medicare Of [place] [id number] N/A Medicare Part A Medicare - Lab/Xray [id number] N/A History of Encounters Visit Date Visit Type Provider 08/04/[address] Susie Sims DO 08/04/2016 Procedures Carroll Chris DO 07/22/2016 Procedures Carroll Chris DO 07/15/2016 Office visit Chris [place] APRN 06/13/2016 Office visit Shirin IRBY 03/11/2016 [facility] Naomi Alejandro MD
--- OUTSIDE RECORDS SUMMARY | 2018-10-05 12:11 | XMS REPORT ---
Author Author Susie Sims [facility] Address [address] [place], [place] [address] Care Team Providers Care Law Enforcement Officer Name Role Phone Susie Sims PCP Allergies [...] per day before meals for 30 days nystatin 100,000 unit/gram topical powder 02/03/2017 02/17/2017 apply to the affected area(s) by topical route 2 times per day for 14 days Name Start Date Expiration Date SIG [...] HC BMI BSA BMI Percentile O2 Sat(%) 02/03/2017 8:12:00 AM 156 mmHg 80 mmHg [...] virus (HSV) infection Feb 03 2017 8:16AM Payers Insurance Name Company Name Plan Name Plan Number Policy Number Policy Group Number Start Date Medicare RHC Medicare RHC [id number] N/A [facility] [id number] N/A Medicare Part B Medicare Of [place] [id number] N/A Medicare Part A Medicare - Lab/Xray [id number] N/A History of Encounters Visit Date Visit Type Provider 02/03/[address] Susie Sims DO [...] DO 08/26/2016 Office visit Tiffany Mccoy SENIOR ENLISTED ADVISOR 08/20/2016 Office visit Tiffany Mccoy SENIOR ENLISTED ADVISOR 08/19/2016 Office visit Carroll Chris DO 08/13/[address] Padma Humphrey MD 08/04/[address] Susie Sims DO 08/04/2016 Procedures Carroll Chris DO 07/22/2016 Procedures Carroll Chris DO 07/15/2016 Office visit Chris [place] SENIOR ENLISTED ADVISOR 06/13/2016 Office visit Shirin IRBY 03/11/2016 [facility] Naomi Alejandro MD
--- OUTSIDE RECORDS SUMMARY | 2018-10-05 12:12 | XMS REPORT ---
Author Author SERA MARTIN [facility] Address [address] [place] [address] Care Team Providers Care Enrollment Services Vice President Name Role Phone SERA MARTIN Unavailable PROBLEMS Type Condition ICD9-CM Code AVP18-AQ Code Onset Dates Condition Status SNOMED Code Problem Hyperlipemia E78.5 Active 08029708 Problem Type 2 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 edema E11.311 Active 84332702 Problem Essential hypertension I10 Active 66762945 Assessment Hyperlipemia E78.5 15 Apr, 2016 Active 17282017 Problem intermediate current use of insulin Z79.4 Active 830326224 Problem History of pancreatitis Z87.19 Active [id number] ALLERGIES Unknown Allergies SOCIAL HISTORY No smoking Hx information available PLAN OF CARE VITAL SIGNS MEDICATIONS Unknown Medications RESULTS No Results PROCEDURES No Known procedures IMMUNIZATIONS No Known Immunizations
--- OUTSIDE RECORDS SUMMARY | 2018-10-05 12:12 | XMS REPORT ---
Author Carroll Ponce [facility] Address [address] [place], [place] [address] Care Team Providers Care Electrical Plumbing Supervisor Name Role Phone Carroll Chris PCP Unavailable [...] Number Start Date Medicare Part A Medicare [facility] [id number] N/[facility] [id number] N/A Medicare Part B Medicare Of [place] [id number] N/A Medicare Part A Medicare - Lab/Xray [id number] N/A History of Encounters Visit Date Visit Type Provider 07/22/2016 Procedures 07/22/2016 Procedures Carroll Chris DO 07/15/2016 Office visit Chris [place] APRN 06/13/2016 Office visit Shirin IRBY 03/11/2016 [facility] Naomi Alejandro MD
--- OUTSIDE RECORDS SUMMARY | 2018-10-05 12:12 | XMS REPORT ---
Author Author Vel Abbott Organization [facility] Address [address] [place], [place] [address] Care Team Providers Care Disciplinary Hearing Officer Name Role Phone Sushmasourav Vel PCP Allergies [...] oral route once daily for 1 day Name Start Date Expiration Date SIG [...] [employer] MSD PNEUMOVAX 23 [id number] Intramuscular Left Arm 04/09/2017 11/23/2014 33 History [...] Number Start Date Medicare RHC Medicare RHC [id number] N/A BCBS [facility] [place] [id number] N/A Medicare Part B Medicare Of [place] [id number] N/A Medicare Part A Medicare - Lab/Xray [id number] N/A History of Encounters Visit Date Visit [...] Office visit Dr. Susie Sims DO 11/05/2016 [facility] Naomi Alejandro MD 11/03/[address] Susie Sims DO 10/08/2016 Office visit Neris Rinaldi MARKETING ASSISTANT 09/15/[address] Susie Sims DO 09/15/2016 Procedures Carroll Chris DO 08/31/2016 Procedures Carroll Chris DO 08/28/[address] Susie Sims DO 08/26/2016 Office visit Tiffany Mccoy MARKETING ASSISTANT 08/20/2016 Office visit Tiffany Mccoy MARKETING ASSISTANT 08/19/2016 Office visit Carroll Chris DO 08/13/[address] Padma Humphrey MD 08/04/[address] Susie Sims DO 08/04/2016 Procedures Carroll Chris DO 07/22/2016 Procedures Carroll Chris DO 07/15/2016 Office visit Chris [place] APRN 06/13/2016 Office visit Shirin IRBY 03/11/2016 [facility] Naomi Alejandro MD
--- OUTSIDE RECORDS SUMMARY | 2018-10-05 12:12 | XMS REPORT ---
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
--- OUTSIDE RECORDS SUMMARY | 2018-10-05 12:12 | XMS REPORT ---
Author Author SERA MARTIN Organization [facility] Address [address] [place] [address] Care Team Providers Care Vocal Performer Name Role Phone SERA MARTIN Unavailable PROBLEMS Type Condition ICD9-CM Code [id number] Code Onset Dates Condition Status SNOMED Code Problem Hyperlipemia E78.5 Active 23499884 Problem Type 2 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 edema E11.311 Active 76443185 Problem Essential hypertension I10 Active 52170735 Problem life skills specialist current use of insulin Z79.4 Active 530122887 Problem History of pancreatitis Z87.19 Active 36106043463591 ALLERGIES Unknown Allergies SOCIAL HISTORY No smoking Hx information available PLAN OF CARE VITAL SIGNS MEDICATIONS Medication Instructions Dosage Frequency Start Date End Date Duration Status Levemir 100 UNIT/ML Subcutaneous 2 times a day 22 units 12h 30 Mar, 2016 30 days Active NovoLog 100 UNIT/ML Subcutaneous 3 times a day with food 10 units 30 days Active RESULTS No Results PROCEDURES No Known procedures IMMUNIZATIONS No Known Immunizations
--- OUTSIDE RECORDS SUMMARY | 2018-10-05 12:13 | XMS REPORT ---
Author Author SERA MARTIN [facility] [employer] Address Unknown Phone Unavailable Care Team Providers Care Agricultural And Forestry Supervisor Name Role Phone SERA MARTIN CP Unavailable Allergies No Known Allergies Problems Problem Type Condition Code Onset Dates Condition Status Problem group home current use of insulin Z79.4 Active Problem History of pancreatitis Z87.19 Active Problem Type 2 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 edema E11.311 Active Problem Essential hypertension I10 Active Medications No Known Medications Results No Known Results Immunizations Vaccine Administration Date PCV 13 Apr 02, 2016 FLUARIX QUAD (3 & UP)-GSK-2015 Apr 02, 2016 Summary Purpose [employer] Submission
--- OUTSIDE RECORDS SUMMARY | 2018-10-05 12:13 | XMS REPORT ---
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
--- OUTSIDE RECORDS SUMMARY | 2018-10-05 12:13 | XMS REPORT ---
Author SERA Geller [facility] [employer] Address Unknown Phone Unavailable Care Team Providers Care Industrial Equipment Mechanic Name Role Phone SERA MARTIN CP Unavailable Allergies, Adverse Reactions, Alerts Substance Reaction Event Type Vicodin nausea Drug Allergy Metformin HCl heart race Drug Allergy Lipitor upset stomach Drug Allergy Januvia nausea Drug Allergy Hydrocodone Bitartrate heart race Drug Allergy Guanfacine HCl elevated blood pressure Drug Allergy EPINEPHrine heart race Drug Allergy Invokamet Info Not Available Drug Allergy Codeine-Guaifenesin nausea Drug Allergy Victoza Info Not Available Drug Allergy Claritin-D 12 Hour nausea Drug Allergy Actos nausea Drug Allergy Problems Problem Type Condition Code Onset Dates Condition Status Assessment Essential hypertension I10 Active Problem Type 2 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 edema E11.311 Active 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 use of insulin Z79.4 Active Problem Hyperlipemia E78.5 Active Assessment Type 2 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 edema E11.311 Active Assessment overhead line worker current use of insulin Z79.4 Active Problem History of pancreatitis Z87.19 Active Problem Essential hypertension I10 Active Medications Medication Code System Code Instructions Start Date End Date Status Dosage Pravastatin Sodium [facility] [address]-46 20 mg Orally Once a day Mar 30, 2016 0.5 tablet Levemir [facility] [address]-18 100 UNIT/ML Subcutaneous 2 times a day Mar 31, 2016 22 units MetFORMIN HCl ER [facility] [address]-43 500 MG Orally Once a day Apr 14, 2016 1 tablet with evening meal Omeprazole [facility] [address]-44 20 mg Orally Once a day 1 capsules Losartan Potassium [facility] [address]-72 25 MG Orally Once a day 1 tablet Aspirin [facility] [address]-13 81 MG Orally Once a day 1 tablet NovoLog [facility] [address]-63 100 UNIT/ML Subcutaneous 3 times a day with food 10 units Procedures Procedure Coding System Code Date Office Visit, Est Pt., Level 3 CPT-4 71706 Apr 23, 2016 [facility] VISIT ESTABLISHED PATIENT CPT-4 G0467 Apr 23, 2016 Vital Signs Date/Time: Apr 23, 2016 Cardiac Monitoring Heart Rate 78 bpm Weight 184.3 lbs Height 60.0 in BMI 35.99 Index Blood Pressure Diastolic 80 mmHg Blood Pressure Systolic 122 mmHg Results No Known Results Summary Purpose [employer] Submission
--- OUTSIDE RECORDS SUMMARY | 2018-10-05 12:13 | XMS REPORT ---
Author SERA Geller [facility] [employer] Address Unknown Phone Unavailable Care Team Providers Care Right Of Way Maintenance Supervisor Name Role Phone SERA MARTIN CP Unavailable Allergies No Known Allergies Problems Problem Type Condition Code Onset Dates Condition Status Problem custodial current use of insulin Z79.4 Active Problem History of pancreatitis Z87.19 Active Problem Type 2 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 edema E11.311 Active Problem Essential hypertension I10 Active Assessment Type 2 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 edema E11.311 Active Medications No Known Medications Procedures Procedure Coding System Code Date VENIPUNCT, ROUTINE* CPT-4 35611 Mar 27, 2016 [facility] C[facility] NOBLL Mar 27, 2016 Results No Known Results Summary Purpose [employer] Submission
--- OUTSIDE RECORDS SUMMARY | 2018-10-05 12:13 | XMS REPORT ---
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
--- OUTSIDE RECORDS SUMMARY | 2018-10-05 12:13 | XMS REPORT ---
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
--- OUTSIDE RECORDS SUMMARY | 2018-10-05 12:13 | XMS REPORT | Continuity of Care Document ---
Author Author [facility] Organization [facility] Address Unknown Phone Unavailable Allergies Active Description Code Type Severity Reaction Onset Reported/Identified Relationship to Patient Clinical Status Yes ACTOS 73232914 BRANDNAME N/A N/A Yes CLARITIN 14030353 BRANDNAME N/ A N/A Yes CODEINE 43974104 DRUG N/A N/A Yes DILAUDID 94502917 BRANDNAME N/ A N/A Yes EPINEPHRINE 26517382 DRUG N/A N/A Yes HYDROCODONE 99985348 DRUG N/A N/A Yes INVOKANA 81279456 BRANDNAME N/ A N/A Yes JANUVIA 53523140 BRANDNAME N/A N/A Yes LIPITOR 77230263 BRANDNAME N/A N/A Yes METFORMIN 64936345 DRUG N/A N/A Yes No Known Environmental Allergies 78187233 N/A N/A Yes No Known Food Allergies 12417468 N/A N/A Yes VICODIN 31462646 BRANDNAME N/A N/A Yes codeine [id number] Drug Allergy Mild GI UPSET 09/28/2018 Medications There is no data. Problems Date Dx Coded Attending Type Code Diagnosis Diagnosed By 07/11/2018 S E119 Type 2 diabetes mellitus without complications 07/11/2018 P I10 Essential ( primary) hypertension 09/28/2018 LAUREN BURKS DO Ot Z01.818 ENCOUNTER FOR OTHER PREPROCEDURAL EXAMIN 09/29/2018 LAUREN BURKS DO Ot Z01.818 ENCOUNTER FOR OTHER PREPROCEDURAL EXAMIN Procedures There is no data. Results There is no data. Encounters ACCT No. Visit Date/Time Discharge Status Pt. Type Provider Facility Loc./Unit Complaint [id number] 09/27/2018 15:17:18 09/27/2018 23:59:59 CLS Outpatient Naomi Alejandro [id number] 08/29/2018 10:12:11 08/29/2018 23:59:59 CLS Outpatient Vel Abbott [id number] 08/04/2018 10:18:29 08/04/2018 23:59:59 CLS Outpatient Hemant Dallas [id number] 07/22/2018 09:11:57 07/22/2018 23:59:59 CLS Outpatient Hemant Dallas [id number] 07/20/2018 09:46:34 07/20/2018 23:59:59 CLS Outpatient Carroll Chris [id number] 07/13/2018 08:58:23 07/13/2018 23:59:59 CLS Outpatient Hemant Dallas [id number] 04/28/2018 12:47:47 04/28/2018 23:59:59 CLS Outpatient Arcadio Sims [id number] 04/18/2018 16:27:42 04/18/2018 23:59:59 CLS Outpatient Hemant Dallas [id number] 04/13/2018 09:15:27 04/13/2018 23:59:59 CLS Outpatient Hemant Dallas [id number] 02/25/2018 11:33:02 02/25/2018 23:59:59 CLS Outpatient Vel Abbott [id number] 01/27/2018 11:26:22 01/27/2018 23:59:59 CLS Outpatient Anton Laws [id number] 01/12/2018 10:01:11 01/12/2018 23:59:59 CLS Outpatient Vel Abbott [id number] 01/11/2018 16:54:44 01/11/2018 23:59:59 CLS Outpatient Hemant Dallas [id number] 01/05/2018 15:12:29 01/05/2018 23:59:59 CLS Outpatient Naomi Alejandro [id number] 01/05/2018 12:06:26 01/05/2018 23:59:59 CLS Outpatient Naomi Alejandro [id number] 12/20/2017 11:49:53 12/20/2017 23:59:59 CLS Outpatient Tito Adkins [id number] 12/17/2017 12:18:31 12/17/2017 23:59:59 CLS Outpatient Tito Adkins [id number] 12/16/2017 12:14:47 12/16/2017 23:59:59 CLS Outpatient Shahbaz Emerson [id number] 12/07/2017 14:52:32 12/07/2017 23:59:59 CLS Outpatient Tito Adkins [id number] 12/02/2017 13:37:58 12/02/2017 23:59:59 CLS Outpatient Vel Abbott [id number] 11/28/2017 18:10:05 11/28/2017 23:59:59 CLS Outpatient Vel Abbott [id number] 11/26/2017 14:16:14 11/26/2017 23:59:59 CLS Outpatient Carroll Chris [id number] 11/23/2017 14:50:32 11/23/2017 23:59:59 CLS Outpatient Tito Adkins [id number] 11/11/2017 09:53:04 11/11/2017 23:59:59 CLS Outpatient Susie Sims [id number] 11/04/2017 10:18:38 11/04/2017 23:59:59 CLS Outpatient Vel Abbott [id number] 10/22/2017 13:32:59 10/22/2017 23:59:59 CLS Outpatient Vel Abbott [id number] 10/06/2017 10:44:51 10/06/2017 23:59:59 CLS Outpatient Susie Sims [id number] 07/07/2017 10:46:22 07/07/2017 23:59:59 CLS Outpatient Susie Sims [id number] 06/21/2017 14:55:59 06/21/2017 23:59:59 CLS Outpatient Anton Lawso [id number] 06/14/2017 15:28:10 06/14/2017 23:59:59 CLS Outpatient KamPadma [id number] 05/05/2017 09:42:34 05/05/2017 23:59:59 CLS Outpatient Susie Sims [id number] 04/13/2017 08:58:09 04/13/2017 23:59:59 CLS Outpatient Susie Sims [id number] 02/03/2017 08:49:14 02/03/2017 23:59:59 CLS Outpatient Susie Sims [id number] 01/15/2017 12:14:26 01/15/2017 23:59:59 CLS Outpatient Naomi Alejandro [id number] 01/13/2017 11:08:10 01/13/2017 23:59:59 CLS Outpatient Susie Sims [id number] 12/02/2016 14:52:01 12/02/2016 23:59:59 CLS Outpatient Susie Sims [id number] 11/03/2016 14:32:23 11/03/2016 23:59:59 CLS Outpatient Susie Sims [id number] 10/08/2016 14:35:54 10/08/2016 23:59:59 CLS Outpatient Neris Rinaldi [id number] 09/15/2016 16:16:06 09/15/2016 23:59:59 CLS Outpatient Susie Sims [id number] 09/15/2016 12:12:09 09/15/2016 23:59:59 CLS Outpatient Carroll Chris [id number] 08/31/2016 15:48:53 08/31/2016 23:59:59 CLS Outpatient Rio Chrisry [id number] 08/28/2016 10:26:47 08/28/2016 23:59:59 CLS Outpatient Susie Sims [id number] 08/26/2016 11:33:03 08/26/2016 23:59:59 CLS Outpatient Tiffany Mccoy [id number] 08/20/2016 10:46:17 08/20/2016 23:59:59 CLS Outpatient Tiffany Mccoy [id number] 08/19/2016 11:49:33 08/19/2016 23:59:59 CLS Outpatient Carroll Chris [id number] 08/13/2016 14:45:23 08/13/2016 23:59:59 CLS Outpatient Padma Humphrey [id number] 08/04/2016 09:37:31 08/04/2016 23:59:59 CLS Outpatient Susie Sims [id number] 08/04/2016 09:27:38 08/04/2016 23:59:59 CLS Outpatient PbnicoleCarroll [id number] 07/22/2016 15:10:40 07/22/2016 23:59:59 CLS Outpatient PbRio riverary [id number] 07/15/2016 18:30:16 07/15/2016 23:59:59 CLS Outpatient Chris Reyes [id number] 06/13/2016 11:20:05 06/13/2016 23:59:59 CLS Outpatient Shirin Rosas [id number] 04/02/2016 13:58:38 04/02/2016 23:59:59 CLS Outpatient Naomi Alejandro [id number] 07/25/2018 16:33:18 Document Registration [id number] 07/25/2018 16:21:30 Document Registration [id number] 07/19/2018 16:10:57 Document Registration [id number] 07/19/2018 16:02:45 Document Registration [id number] 07/11/2018 08:48:35 Document Registration [id number] 04/25/2018 14:18:32 Document Registration [id number] 04/25/2018 14:08:09 Document Registration [id number] 04/16/2018 00:21:02 Document Registration [id number] 04/16/2018 00:05:24 Document Registration [id number] 04/12/2018 08:07:48 Document Registration [id number] 03/08/2018 09:08:03 Document Registration [id number] 01/26/2018 14:56:40 Document Registration [id number] 12/08/2017 15:19:48 Document Registration [id number] 12/02/2017 13:44:14 Document Registration [id number] 11/26/2017 23:31:05 Document Registration [id number] 11/26/2017 23:06:10 Document Registration [id number] 11/16/2017 13:21:45 Document Registration [id number] 11/11/2017 09:31:48 Document Registration [id number] 11/04/2017 23:24:41 Document Registration [id number] 10/21/2017 11:16:34 Document Registration [id number] 10/06/2017 11:36:14 Document Registration [id number] 10/05/2017 09:46:56 Document Registration [id number] 07/07/2017 10:46:40 Document Registration [id number] 06/21/2017 16:58:06 Document Registration [id number] 05/01/2017 05:56:55 Document Registration [id number] 05/01/2017 02:26:56 Document Registration [id number] 04/13/2017 09:12:27 Document Registration [id number] 04/01/2017 13:53:26 Document Registration [id number] 03/23/2017 13:36:31 Document Registration [id number] 09/28/2018 06:50:00 09/28/2018 14:38:00 DIS Outpatient LAUREN BURKS DO [facility] PREOP COLONOSCOPY/EGD [id number] 10/05/2018 11:00:00 ACT Outpatient LAUREN BURKS DO [facility] ENDO GASTRITIS/DIVERTICULAR DISEASE
--- OUTSIDE RECORDS SUMMARY | 2018-10-05 12:13 | XMS REPORT ---
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.4 Active Assessment History of pancreatitis Z87.19 Active Problem Essential hypertension I10 Active Assessment Type 2 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 edema E11.311 Active Medications Medication Code System Code Instructions Start Date End Date Status Dosage Aspirin [facility] [address]-02 81 MG Orally Once a day 1 tablet Omeprazole [facility] [address]-88 20 mg Orally Once a day 1 capsules NovoLog [facility] [address]-90 100 UNIT/ML Subcutaneous 3 times a day 4 units sliding scale Lantus [facility] [address]-15 100 UNIT/ML Subcutaneous once daily 20 a.m units 20 units p.m Losartan Potassium [facility] [address]-09 25 MG Orally Once a day 1 tablet Procedures Procedure Coding System Code Date MICROALBUMIN, SEMIQUANT CPT-4 55257 Mar 26, 2016 [facility] VISIT NEW PATIENT CPT-4 G0466 Mar 26, 2016 MEASURE BLOOD OXYGEN LEVEL CPT-4 47618 Mar 26, 2016 Office Visit, New Pt., Level 4 CPT-4 02482 Mar 26, 2016 Vital Signs Date/Time: Mar 26, 2016 Cardiac Monitoring Heart Rate 80 bpm Weight 181.5 lbs Height 60.0 in BMI 35.44 Index Oximetry 96 % Blood Pressure Diastolic 70 mmHg Blood Pressure Systolic 118 mmHg Results No Known Results Summary Purpose [employer]ClinicalWorks Submission
--- OUTSIDE RECORDS SUMMARY | 2018-10-05 12:13 | XMS REPORT ---
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
--- OUTSIDE RECORDS SUMMARY | 2018-10-05 12:13 | XMS REPORT ---
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
--- OUTSIDE RECORDS SUMMARY | 2018-10-05 12:13 | XMS REPORT ---
Author Author SERA MARTIN Organization [employer] Address Unknown Phone Unavailable Care Team Providers Care It Generalist Name Role Phone SERA MARTIN CP Unavailable Allergies No Known Allergies Problems Problem Type Condition Code Onset Dates Condition Status Problem Type 2 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 edema E11.311 Active Problem longterm current use of insulin Z79.4 Active Problem Hyperlipemia E78.5 Active Problem History of pancreatitis Z87.19 Active Problem Essential hypertension I10 Active Medications No Known Medications Results No Known Results Summary Purpose eClinicalWorks Submission
[2018-10-05] MEDS ORDERED: MIDAZOLAM 2 MG/2 ML (VERSED) VIAL ONE (13:14)
[2018-10-05] MEDS ORDERED: PROPOFOL INJECTION 50 ML IV ONE (13:14)
[2018-10-05] MEDS ORDERED: KETAMINE HCL 100 MG/ML 5 ML VIAL ONE (14:05)
--- NOTE | 2018-10-05 14:16 | Progress Note-Post Operative ---
Post-Operative Progess Note Surgeon (s)/Seismic Engineer (s) Surgeon LAUREN BURKS DO Seismic Engineer: none Pre-Operative Diagnosis Gastritis, LLQ pain, Hx of diverticulitis Post-Operative Diagnosis Duodenal Ulcer Gastritis Hiatal hernia Esophageal ulcer and Esophagitis Diverticula Internal Hemorrhoids Procedure & Operative Findings Date of Procedure 10/05/18 Procedure Performed/Findings EGD with bx Colonoscopy Anesthesia Type IV sedation by BOW MACHINE OPERATOR Estimated Blood Loss Estimated blood loss (mL): scant Specimens/Packing Specimens Removed Duodenal ulcer bx Antral bx Esophageal ulcer bx LAUREN BURKS DO Oct 05, 2018 14:16
[2018-10-05] MEDS ORDERED: SUCR1TAB36 PO (14:22)
--- NOTE | 2018-10-05 14:24 | Endoscopy Discharge Instruct ---
Endo Procedure/Findings Findings 1.: Duodenal Ulcer, Gastritis 2.: Hiatal Hernia, Other Findings (Esophageal Ulcer) 3.: Diverticulosis 4.: Internal Hemorrhoids Discharge Instructions - Activity: You might feel a little sleepy until tomorrow. This is due to the medicine you received to relax you. Until tomorrow, you should: NOT drive a car, operate machinery or power tools. NOT drink any alcoholic beverages. NOT make any important decisions or sign importortant papers. Do not return to work until tomorrow, unless otherwise instructed. Resume previous activities tomorrow. Diet: Start by taking liquids. If you tolerate liquids, advance to solid food. make an appointment for one week Instructions: 1.: EGD in 6-8 weeks 2.: Colonscopy in 10 years Notify Physician - If you experience excessive bleeding, unusual abdominal pain, fever, or chest pain, contact your doctor immediately. Follow-Up: - I have received and understand the above instructions and will call my doctor if I have any further questions. Patient Signature Date Nurse Signature Other (Relationship) LAUREN BURKS DO Oct 05, 2018 14:24
[2018-10-05 14:35] VITALS: BP 147/82
[2018-10-05 15:05] VITALS: BP 153/82
--- NOTE | 2018-10-05 15:11 | Anesthesia-General Post-Op ---
MAC Patient Condition Mental Status/LOC: Same as Preop Cardiovascular: Satisfactory Nausea/Vomiting: Absent Respiratory: Satisfactory Pain: Controlled Complications: Absent Post Op Complications Complications None Follow Up Care/Instructions Patient Instructions None needed. Anesthesiology Discharge Order Discharge Order Patient is doing well, no complaints, stable vital signs, no apparent adverse anesthesia problems. LISA CUETO DO Oct 05, 2018 15:10
[2018-10-05 15:45] VITALS: BP 153/82
--- NOTE | 2018-10-06 00:07 | OPERATIVE REPORT ---
DATE OF SERVICE: PREOPERATIVE DIAGNOSES: 1. Gastritis. 2. Left lower quadrant pain. 3. History of diverticulitis. POSTOPERATIVE DIAGNOSES: 1. Duodenal ulcer. 2. Gastritis. 3. Hiatal hernia. 4. Esophagitis with esophageal ulcer. 5. Diverticulosis. 6. Internal hemorrhoids. PROCEDURES: 1. EGD with biopsy. 2. Colonoscopy. SURGEON: Lukas Arriaza DO AIRPLANE DESIGNER: None. ANESTHESIA: IV sedation by WOOD GANG SAWYER. SPECIMEN: One biopsy from duodenal ulcer, one biopsy from the antrum, biopsy of the esophageal ulcer at the GE junction. BLOOD LOSS: Scant. FLUIDS: Per anesthesia. POSTOPERATIVE CONDITION: Stable. INDICATION FOR PROCEDURE: The patient is a 68-year-old female who has been having gastritis and GERD symptoms, needed EGD as well. She has been having continued left lower quadrant pain with a history of diverticulitis, recently treated with outpatient antibiotics. FINDINGS: The patient had duodenal ulcer only in the first portion of the duodenum, some gastritis, small hiatal hernia and esophagitis with esophageal ulcer in the colon. She had some diverticulosis mostly in the sigmoid and descending colon, which actually had some on the right side as well. Sigmoid colon little bit narrowed possibly, but did not appear to be any active diverticulitis, saw a small internal hemorrhoid as well. PROCEDURE NOTE: After informed consent was obtained, the patient was brought to the endoscopy suite, placed in bed in left lateral decubitus position. She was administered IV sedation by the WOOD GANG SAWYER who then monitored her vitals the entire time, heart rate, blood pressure, pulse ox and the scope was inserted down the mouth through the esophagus and into the stomach. Upon entering the stomach, noted some gastritis, took a picture, pushed into the first portion of duodenum and saw a duodenal ulcer, took a picture. Pushed into the second portion of duodenum looked clear. Pulled back into the first portion, saw a larger ulcer. We would look to do a biopsy of these, got a good specimen and then back up into the antrum, did a biopsy of antrum and then retroflexed the scope, saw very small hiatal hernia, pulled the scope back up into the GE junction and saw what looked like another esophageal ulcer, did some biopsies at this ulcer. Only scant bleeding suctioned out the stomach, pulled the scope up, the rest of the esophagus, which looked fine and then out the mouth. Switched gloves and switched scopes, went down below, started the colonoscopy. Pushed the scope in all the way about 140 cm through the sigmoid and descending colon, saw some diverticula, took pictures, little bit narrowed through here, able to get all the way to cecum, took a picture of appendiceal orifice, noted the ileocecal valve and then slowly withdrew the scope insufflating to look circumferentially at the lux looking the cecum, up the ascending colon to the hepatic flexure. On the right side, there were some mild scattered diverticula. Then, from the hepatic flexure, down the transverse colon, the splenic flexure into the descending colon into the sigmoid colon, saw lot of diverticula throughout here. There is also a little bit of possibly narrowing in the sigmoid colon. I could still easily get the scope through with extra space around it. Did not see any polyps through here, little bit of erythema possibly due to some scope trauma on the way in. Did not appear to be acute diverticulitis. Continued through here and down in the rectum, retroflexed the rectal vault, saw some internal hemorrhoids, took a picture of this and then removed the scope. The patient tolerated the procedure and she was recovered in the endoscopy suite. Job ID: [id number] DocumentID: [id number] Dictated Date: 10/05/2018 14:32:46 Tapper Bit Date: 10/06/2018 00:06:10 Dictated By: DO LEXI MCMAHON
== END 2018-10-05 15:45 | disposition home or self-care (01) ==
LOC: ENDO 11:00
PROVIDERS: ATTEND Surgery
DX: K26.9 Duodenal ulcer, unspecified as acute or chronic, without hemorrhage or perforation (principal); K29.50 Unspecified chronic gastritis without bleeding; K44.9 Diaphragmatic hernia without obstruction or gangrene; K21.0 Gastro-esophageal reflux disease with esophagitis; K22.10 Ulcer of esophagus without bleeding; K57.30 Diverticulosis of large intestine without perforation or abscess without bleeding; K64.8 Other hemorrhoids; E11.9 Type 2 diabetes mellitus without complications; E78.5 Hyperlipidemia, unspecified; Z87.19 Personal history of other diseases of the digestive system; I10 Essential (primary) hypertension; Z87.891 Personal history of nicotine dependence; Z79.82 Long term (current) use of aspirin; Z79.899 Other long term (current) drug therapy

== ENCOUNTER 2018-12-08 05:46 | Outpatient (CLI) | payer MEDICARE, BC ==
[~2018-12-08] VITALS: Ht 154.9 cm; Wt 81.6 kg
[~2018-12-08 05:46] MED LIST changes: +SUCR1TAB36 PO
[2018-12-08] MEDS ORDERED: PIOG30TA38 PO (11:15)
== END 2018-12-08 11:19 | disposition home or self-care (01) ==
LOC: PREOP 05:46
PROVIDERS: ATTEND Surgery
DX: Z01.818 Encounter for other preprocedural examination (principal)

== ENCOUNTER 2018-12-12 07:36 | Day surgery (SDC) | payer MEDICARE, BC ==
[~2018-12-12] VITALS: Ht 154.9 cm; Wt 81.6 kg
[~2018-12-12 07:36] MED LIST changes: +PIOG30TA38 PO
[2018-12-12] MEDS ORDERED: LACTATED RINGERS 1,000 ML IV ONE (07:42)
--- OUTSIDE RECORDS SUMMARY | 2018-12-12 07:42 | XMS REPORT ---
Author Author Hemant Dallas [facility] Address [address] [place], [place] [id number] Care Team Providers Care Gizzard Skin Remover Name Role Phone Hemant Dallas PCP Hemant [...] C&S IF IND 11/23/2017 12:00 AM Urine dipstick test without microscopy 08/29/2018 12:00 AM cystocele 07/09/2016 2:00 PM cystocele [...] 2 times per day for 90 days Augmentin 875-125 mg oral tablet take 1 tablet by oral route every 12 hours for 7 days losartan 100 mg oral tablet 10/06/2018 TAKE 1 TABLET BY MOUTH ONCE DAILY Name Start [...] oral route once daily for 1 day sulfamethoxazole-trimethoprim 800-160 mg oral tablet 07/22/2018 07/29/2018 [...] taking because her calcium has vitamen D3 glipizide 10 mg oral tablet 03/01/2018 10/11/2018 take 1 tablet (10 mg) by oral route 2 times per day before meals for 90 days Not taking regularly pantoprazole 40 mg oral tablet,delayed release (DR/EC) [...] HC BMI BSA BMI Percentile O2 Sat(%) 10/11/2018 8:42:00 AM 130 mmHg 82 mmHg 75 bpm 18 rpm 98.6 F 188.375 lbs 61 in 35.5928 kg/m 1.9177 m 95 % 08/29/2018 9:27:00 AM 152 mmHg 90 mmHg 71 bpm 16 rpm 98.4 F 188.375 lbs 61 in 35.59 kg/m2 1.92 m2 95 % 08/04/2018 9:29:00 AM 128 mmHg 70 mmHg [...] 07/08/2018 12:00 AM GLYCOSYLATED HEMOGLOBIN TEST Reviewed 08/29/2018 9:59 AM URINALYSIS AUTO W/O SCOPE Reviewed 10/11/2018 12:00 AM GLYCOSYLATED HEMOGLOBIN TEST Reviewed Results [...] >60 MICROALBUMIN UR <0.5 HGB A1C 7.0 %Est Avg Glucose 154.2 07/11/2018 9:10 AM WBC [...] AA* >60 MICROALBUMIN UR <0.5 HGB A1C 6.70 %Est Avg Glucose 145.6 VITAMIN B12 1501 07/14/2018 11:14 AM Falls in last 6 months? No Unsteady or worry about falling ? No Fall Risk Assessment Not At Risk 10/11/2018 9:32 AM HGB A1C 7.10 %Est Avg Glucose 157.1 History Of Immunizations Name Date Admin Mfg Name Mfg Code Trade Name Lot# Route Inj Vis Given Vis Pub CVX Pneumococcal 04/02/2017 [employer] MSD PNEUMOVAX 23 [id number] Intramuscular Left Arm 04/09/2017 11/23/2014 33 Influenza [...] mellitus without complications Apr 11 2018 12:01PM [facility] (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 of insulin Apr 11 2018 12:01PM Diabetes Mellitus, Type II Apr 13 2018 8:46AM Hypertension Apr 18 2018 3:39PM Supraventricular tachycardia Apr 18 2018 3:39PM Type 2 diabetes mellitus without complications Apr 18 2018 3:39PM [facility] (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 of insulin Apr 18 2018 3:39PM Hypertension Jul 08 2018 10:13AM Type 2 diabetes mellitus without complications Jul 08 2018 10:13AM [facility] (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 of insulin Jul 08 2018 10:13AM Type 2 diabetes mellitus without complications Jul 13 2018 8:09AM terminal operator (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 of insulin Jul 13 2018 8:09AM Hypertension Jul 13 2018 8:09AM Diverticulitis Jul 22 2018 8:19AM Epigastric abdominal pain Aug 04 2018 9:31AM Type 2 diabetes mellitus without complications Oct 11 2018 8:47AM terminal operator (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 of insulin Oct 11 2018 8:47AM Hypertension Oct 11 2018 8:47AM Gastritis Oct 11 2018 8:47AM Gastroesophageal Reflux Oct 11 2018 8:47AM Payers Insurance Name Company Name Plan Name Plan Number Policy Number Policy Group Number Start Date [facility] [id number] Friday, 2015 BCBS [facility] [id number] N/A [facility] [id number] N/A Medicare Part A Medicare - Lab/Xray [id number] N/A Medicare Part B Medicare Of [place] [id number] N/A Medicare Part B Medicare [place] [id number] N/A History of Encounters Visit Date Visit Type Provider 10/11/2018 Office visit Hemant Dallas DO 08/29/2018 Office visit Vel Abbott MD 08/04/2018 Office visit Hemant Dallas DO 07/25/2018 [facility] Naomi Alejandro MD 07/22/2018 Office visit Hemant Celena DO 07/19/2018 Hospital Carroll Chris DO 07/13/2018 Office visit Hemant Celena DO 04/18/2018 Office visit Hemant Celena DO 04/16/2018 [facility] Arcadio Sims DO 04/13/2018 Office visit Hemant Celena DO 03/08/2018 Office visit Hemant Celena DO 02/25/2018 Office visit Vel Abbott MD 01/26/2018 Office visit Atnon Laws MD 01/12/2018 Office visit Vel Abbott MD 01/11/2018 Office visit Hemant Dallas DO 12/20/2017 Office visit Tito Adkins MD 12/16/2017 Surgery Tito Adkins MD 12/07/2017 Office visit Tito Adkins MD 12/02/2017 Office visit Vel Abbott MD 11/26/2017 [facility] Naomi Alejandro MD 11/25/2017 [facility] Shahbaz Emerson MD 11/24/2017 Surgery Vel Abbott MD 11/24/2017 [facility] Carroll Chris DO 11/23/2017 Office [...] Office visit Dr. Susie Sims DO 11/05/2016 [facility] Naomi Alejandro MD 11/03/[address] Susie Sims DO 10/08/2016 Office visit Neris Rinaldi FEEDER ASSOCIATE 09/15/[address] Susie Sims DO 09/15/2016 Procedures Carroll Bonicole DO 08/31/2016 Procedures Carroll Bouman DO 08/28/[address] Susie Sims DO 08/26/2016 Office visit Tiffany Mccoy FEEDER ASSOCIATE 08/20/2016 Office visit Tiffany Mccoy FEEDER ASSOCIATE 08/19/2016 Office visit Carroll Chris DO 08/13/[address] Padma Humphrey MD 08/04/[address] Susie Sims DO 08/04/2016 Procedures Carroll Bonicole DO 07/22/2016 Procedures Carroll Bouman DO 07/15/2016 Office visit Chris Reyes FEEDER ASSOCIATE 06/13/2016 Office visit Shirin IRBY 03/11/2016 [facility] Naomi Alejandro MD
--- OUTSIDE RECORDS SUMMARY | 2018-12-12 07:43 | XMS REPORT ---
Author Author Hemant Dallas [facility] Address [address] [place], [place] [address] Care Team Providers Care Supply Chain Logistics Manager Name Role Phone Hemant Dallas PCP Hemant [...] [employer] MSD PNEUMOVAX 23 [id number] Intramuscular Left Arm 04/09/2017 11/23/2014 33 Influenza [...] mellitus without complications Apr 11 2018 12:01PM longterm (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 of insulin Apr 11 2018 12:01PM Diabetes Mellitus, Type II Apr 13 2018 8:46AM Hypertension Apr 18 2018 3:39PM Supraventricular tachycardia Apr 18 2018 3:39PM Type 2 diabetes mellitus without complications Apr 18 2018 3:39PM longterm (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 of insulin Apr 18 2018 3:39PM Hypertension Jul 08 2018 10:13AM Type 2 diabetes mellitus without complications Jul 08 2018 10:13AM longterm (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 of insulin Jul 08 2018 10:13AM Type 2 diabetes mellitus without complications Jul 13 2018 8:09AM terminal 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 (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 of insulin Jul 13 2018 8:09AM Hypertension Jul 13 2018 8:09AM Diverticulitis Jul 22 2018 8:19AM Epigastric abdominal pain Aug 04 2018 9:31AM Type 2 diabetes mellitus without complications Oct 11 2018 8:47AM terminal 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 (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 of insulin Oct 11 2018 8:47AM Hypertension Oct 11 2018 8:47AM Gastritis Oct 11 2018 8:47AM Gastroesophageal Reflux Oct 11 2018 8:47AM Payers Insurance Name Company Name Plan Name Plan Number Policy Number Policy Group Number Start Date Medicare [facility] Medicare [facility] [id number] Friday, 2015 BCBS [facility] [id number] N/A Medicare [facility] Medicare [facility] [id number] N/A Medicare Part A Medicare - Lab/Xray [id number] N/A Medicare Part B Medicare [place] [id number] N/A Medicare Part B Medicare [place] [id number] N/A History of Encounters Visit Date Visit Type Provider 10/11/2018 Office visit Hemant Dallas DO 08/29/2018 Office visit Vel Abbott MD 08/04/2018 Office visit Hemant Dallas DO 07/25/2018 [facility] Naomi Alejandro MD 07/22/2018 Office visit Hemant Celena DO 07/19/2018 Hospital Carroll Chris DO 07/13/2018 Office visit Hemant Celena DO 04/18/2018 Office visit Hemant Celena DO 04/16/2018 [facility] Arcadio Sims DO 04/13/2018 Office visit [...] 12/02/2017 Office visit Vel Abbott MD 11/26/2017 [facility] Naomi Alejandro MD 11/25/2017 [facility] Shahbaz Emerson MD 11/24/2017 Surgery Vel Abbott MD 11/24/2017 [facility] Carroll Chris DO 11/23/2017 Office visit [...] Sims DO 10/08/2016 Office visit Neris Rinaldi LAUNDRY TECH 09/15/[address] Susie Sims DO 09/15/2016 Procedures Carroll Bonicole DO 08/31/2016 Procedures Carroll Bouman DO 08/28/[address] Susie Sims DO 08/26/2016 Office visit Tiffany Mccoy LAUNDRY TECH 08/20/2016 Office visit Tiffany Mccoy LAUNDRY TECH 08/19/2016 Office visit Carroll Chris DO 08/13/[address] Padma Humphrey MD 08/04/[address] Susie Sims DO 08/04/2016 Procedures Carroll Bonicole DO 07/22/2016 Procedures Carroll Bouman DO 07/15/2016 Office visit Chris Reyes LAUNDRY TECH 06/13/2016 Office visit Shirin IRBY 03/11/2016 [facility] Naomi Alejandro MD
[2018-12-12] MEDS ORDERED: HURRICAINE EXT TUBE (BENZOCAINE) XX PRN (07:45)
[2018-12-12] MEDS ORDERED: LACTATED RINGERS 1,000 ML IV STA (07:45)
--- OUTSIDE RECORDS SUMMARY | 2018-12-12 07:45 | XMS REPORT ---
Author Author Vel Abbott Organization [facility] Address [address] [place] [id number] Care Team Providers Care Customer Care Associate Name Role Phone Vel Abbott PCP Celena Hemant PreferredProvider Allergies and Adverse Reactions Name Reaction [...] HC BMI BSA BMI Percentile O2 Sat(%) 08/29/2018 9:27:00 AM 152 mmHg 90 mmHg 71 bpm 16 rpm 98.4 F 188.375 lbs 61 in 35.5928 kg/m 1.9177 m 95 % 08/04/2018 9:29:00 AM 128 mmHg 70 mmHg 73 bpm 20 rpm 99.3 F 179 lbs 61 in 33.82 kg/m2 1.87 m2 96 % 07/22/2018 8:17:00 AM 154 mmHg [...] 9:59 AM URINALYSIS AUTO W/O SCOPE Reviewed Results Summary Date and Description Results [...] [employer] 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 operator (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 of insulin Apr 18 2018 3:39PM Hypertension Jul 08 2018 10:13AM Type 2 diabetes mellitus without complications Jul 08 2018 10:13AM prison (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 of insulin Jul 08 2018 10:13AM Type 2 diabetes mellitus without complications Jul 13 2018 8:09AM prison (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 of insulin Jul 13 2018 8:09AM Hypertension Jul 13 2018 8:09AM Diverticulitis Jul 22 2018 8:19AM Epigastric abdominal pain Aug 04 2018 9:31AM Payers Insurance Name Company Name Plan Name Plan Number Policy Number Policy Group Number Start Date Medicare Part B Medicare [place] [id number] N/[id number] N/A Medicare [facility] Medicare [facility] [id number] N/A Medicare Part A Medicare - Lab/Xray [id number] N/A Medicare [facility] Medicare [facility] [id number] Friday, January 30, 2015 Medicare Part B Medicare [place] [id number] N/A History of Encounters Visit Date Visit Type Provider 08/29/2018 Office visit Vel Abbott MD 08/04/2018 Office visit Hemant Dallas DO 07/25/2018 [facility] Naomi Alejandro MD 07/22/2018 Office visit Hemant Dallas DO 07/19/2018 [facility] Carroll Chris DO 07/13/2018 Office visit Hemant Dallas DO 04/18/2018 Office visit Hemant Dallas DO 04/16/2018 Hospital Arcadio Elliephilomena DO 04/13/2018 Office visit Hemant Dallas DO [...] Office visit Tito Adkins MD 11/16/2017 Hospital aNomi Alejandro MD 11/11/[address] Susie Sims DO 11/04/2017 Procedures Vel Abbott MD 10/21/2017 Office visit Vel Abbott MD 10/06/[address] Susie Sims DO 07/07/[address] Susie Sims DO 06/21/2017 Office visit Antno Laws MD 06/14/[address] Padma Humphrey MD 05/05/[address] Susie Sims DO 04/13/[address] Susie Sims DO 02/03/[address] Susie Sims DO 01/13/[address] Susie Sims DO 12/02/[address] Susie Sims DO 11/05/2016 [facility] Naomi Alejandro MD 11/03/[address] Susie Sims DO 10/08/2016 Office visit Neris Rinaldi APRN 09/15/[address] Susie Sims DO 09/15/2016 Procedures Carroll Chris DO 08/31/2016 Procedures Carroll Chris DO 08/28/[address] Susie Sims DO 08/26/2016 Office visit Tiffany Mccoy SMOOTH PLATER 08/20/2016 Office visit Tiffany Mccoy SMOOTH PLATER 08/19/2016 Office visit Carroll Chris DO 08/13/[address] Padma Humphrey MD 08/04/[address] Susie Sims DO 08/04/2016 Procedures Carroll Chris DO 07/22/2016 Procedures Carroll Chris DO 07/15/2016 Office visit Chris Reyes SMOOTH PLATER 06/13/2016 Office visit Shirin IRBY 03/11/2016 [facility] Naomi Alejandro MD
[2018-12-12 08:03] VITALS: BP 140/76
--- NOTE | 2018-12-12 08:24 | Progress Note-Pre Operative ---
Pre-Operative Progress Note H&P Reviewed The H&P was reviewed, patient examined and no changes noted. Time Seen by Provider: 08:18 Date H&P Reviewed: December 12, 2018 Time H&P Reviewed: 08:15 Pre-Operative Diagnosis: Gastritis, Ulcers LAUREN BURKS DO December 12, 2018 08:24
--- OUTSIDE RECORDS SUMMARY | 2018-12-12 08:37 | XMS REPORT | Continuity of Care Document ---
Author Organization Unknown Address Unknown Allergies There is no data. Medications There is no data. Problems There is no data. Procedures There is no data. Results There is no data. Encounters ACCT No. Visit Date/Time Discharge Status Pt. Type Provider Facility Loc./Unit Complaint [id number] 12/08/2018 09:31:42 12/08/2018 23:59:59 CLS Outpatient Maximus Jean Baptiste V [id number] 11/16/2018 10:24:30 11/16/2018 23:59:59 CLS Outpatient Maximus Jean Baptiste V [id number] 10/11/2018 09:40:15 10/11/2018 23:59:59 CLS Outpatient Hemant Dallas [id number] 09/27/2018 15:17:18 09/27/2018 23:59:59 CLS Outpatient JavonNaomi [id number] 08/29/2018 10:12:11 08/29/2018 23:59:59 CLS Outpatient Scar Vel [id number] 08/04/2018 10:18:29 08/04/2018 23:59:59 CLS Outpatient Hemant Dallas [id number] 07/22/2018 09:11:57 07/22/2018 23:59:59 CLS Outpatient Hemant Dallas [id number] 07/20/2018 09:46:34 07/20/2018 23:59:59 CLS Outpatient Carroll Chris [id number] 07/13/2018 08:58:23 07/13/2018 23:59:59 CLS Outpatient Hemant Dallas [id number] 04/28/2018 12:47:47 04/28/2018 23:59:59 CLS Outpatient Arcadio Sims [id number] 04/18/2018 16:27:42 04/18/2018 23:59:59 CLS Outpatient Hemant Dallas [id number] 04/13/2018 09:15:27 04/13/2018 23:59:59 CLS Outpatient Hemant Dallas [id number] 02/25/2018 11:33:02 02/25/2018 23:59:59 CLS Outpatient Vel Abbott [id number] 01/27/2018 11:26:22 01/27/2018 23:59:59 CLS Outpatient Anton Laws [id number] 01/12/2018 10:01:11 01/12/2018 23:59:59 CLS Outpatient Vel Abbott [id number] 01/11/2018 16:54:44 01/11/2018 23:59:59 CLS Outpatient Hemant Dallas [id number] 01/05/2018 15:12:29 01/05/2018 23:59:59 CLS Outpatient JavonNaomi [id number] 01/05/2018 12:06:26 01/05/2018 23:59:59 CLS Outpatient JavonNaomi [id number] 12/20/2017 11:49:53 12/20/2017 23:59:59 CLS Outpatient Tito Adkins [id number] 12/17/2017 12:18:31 12/17/2017 23:59:59 CLS Outpatient Tito Adkins [id number] 12/16/2017 12:14:47 12/16/2017 23:59:59 CLS Outpatient Shahbaz Emerson [id number] 12/07/2017 14:52:32 12/07/2017 23:59:59 CLS Outpatient Tito Adkins [id number] 12/02/2017 13:37:58 12/02/2017 23:59:59 CLS Outpatient Vel Abbott [id number] 11/28/2017 18:10:05 11/28/2017 23:59:59 CLS Outpatient Vel Abbott [id number] 11/26/2017 14:16:14 11/26/2017 23:59:59 CLS Outpatient PbRio riverary [id number] 11/23/2017 14:50:32 11/23/2017 23:59:59 CLS Outpatient Tito Adkins [id number] 11/11/2017 09:53:04 11/11/2017 23:59:59 CLS Outpatient Susie Sims [id number] 11/04/2017 10:18:38 11/04/2017 23:59:59 CLS Outpatient Vel Abbott [id number] 10/22/2017 13:32:59 10/22/2017 23:59:59 CLS Outpatient Vel Abbott [id number] 10/06/2017 10:44:51 10/06/2017 23:59:59 CLS Outpatient Susie Sims [id number] 07/07/2017 10:46:22 07/07/2017 23:59:59 CLS Outpatient Susie Sims [id number] 06/21/2017 14:55:59 06/21/2017 23:59:59 CLS Outpatient Anton Laws [id number] 06/14/2017 15:28:10 06/14/2017 23:59:59 CLS Outpatient Padma Humphrey [id number] 05/05/2017 09:42:34 05/05/2017 23:59:59 CLS Outpatient Susie Sims [id number] 04/13/2017 08:58:09 04/13/2017 23:59:59 CLS Outpatient Eliseomaco Susie [id number] 02/03/2017 08:49:14 02/03/2017 23:59:59 CLS Outpatient Susie Sims [id number] 01/15/2017 12:14:26 01/15/2017 23:59:59 CLS Outpatient Naomi Alejandro Roberto [id number] 01/13/2017 11:08:10 01/13/2017 23:59:59 CLS Outpatient Susie Sims [id number] 12/02/2016 14:52:01 12/02/2016 23:59:59 CLS Outpatient EliseoSusie dewey [id number] 11/03/2016 14:32:23 11/03/2016 23:59:59 CLS Outpatient EliseoSusie dewey [id number] 10/08/2016 14:35:54 10/08/2016 23:59:59 CLS Outpatient Neris Rinaldi [id number] 09/15/2016 16:16:06 09/15/2016 23:59:59 CLS Outpatient Eliseoroseyphilomena Susie [id number] 09/15/2016 12:12:09 09/15/2016 23:59:59 CLS Outpatient Carroll Chris [id number] 08/31/2016 15:48:53 08/31/2016 23:59:59 CLS Outpatient Carroll Chris [id number] 08/28/2016 10:26:47 08/28/2016 23:59:59 CLS Outpatient Susie Sims [id number] 08/26/2016 11:33:03 08/26/2016 23:59:59 CLS Outpatient Darius Tiffany M [id number] 08/20/2016 10:46:17 08/20/2016 23:59:59 CLS Outpatient Tiffany Mccoy [id number] 08/19/2016 11:49:33 08/19/2016 23:59:59 CLS Outpatient Carroll Chris [id number] 08/13/2016 14:45:23 08/13/2016 23:59:59 CLS Outpatient Padma Humphrey [id number] 08/04/2016 09:37:31 08/04/2016 23:59:59 CLS Outpatient EliseoSusie dewey [id number] 08/04/2016 09:27:38 08/04/2016 23:59:59 CLS Outpatient Carroll Chris [id number] 07/22/2016 15:10:40 07/22/2016 23:59:59 CLS Outpatient Carroll Chris [id number] 07/15/2016 18:30:16 07/15/2016 23:59:59 CLS Outpatient Chris Reyes [id number] 06/13/2016 11:20:05 06/13/2016 23:59:59 CLS Outpatient Shirin Rosas [id number] 04/02/2016 13:58:38 04/02/2016 23:59:59 CLS Outpatient Naomi Alejandro
[2018-12-12] MEDS ORDERED: PROPOFOL INJECTION 50 ML IV ONE (09:09)
[2018-12-12] MEDS ORDERED: MIDAZOLAM 2 MG/2 ML (VERSED) VIAL ONE (09:09)
--- NOTE | 2018-12-12 09:29 | Progress Note-Post Operative ---
Post-Operative Progess Note Surgeon (s)/Technical Director (s) Surgeon LAUREN BURKS DO Technical Director: none Pre-Operative Diagnosis Gastritis, Ulcers Post-Operative Diagnosis Esophagitis Gastric Polyp Procedure & Operative Findings Date of Procedure 12/12/18 Procedure Performed/Findings EGD with bx Anesthesia Type IV sedation by OUTSIDE PROPERTY AGENT Estimated Blood Loss Estimated blood loss (mL): scant Specimens/Packing Specimens Removed GE jxn bx LAUREN BURKS DO December 12, 2018 09:29
--- NOTE | 2018-12-12 09:30 | Endoscopy Discharge Instruct ---
Endo Procedure/Findings Findings 1.: Other Findings (Esophagitis) Discharge Instructions - Activity: You might feel a little sleepy until tomorrow. This is due to the medicine you received to relax you. Until tomorrow, you should: NOT drive a car, operate machinery or power tools. NOT drink any alcoholic beverages. NOT make any important decisions or sign importortant papers. Do not return to work until tomorrow, unless otherwise instructed. Resume previous activities tomorrow. Diet: Start by taking liquids. If you tolerate liquids, advance to solid food. make an appointment for one week Instructions: 1.: EGD in 1 year Notify Physician - If you experience excessive bleeding, unusual abdominal pain, fever, or chest pain, contact your doctor immediately. Follow-Up: - I have received and understand the above instructions and will call my doctor if I have any further questions. Patient Signature Date Nurse Signature Other (Relationship) LAUREN BURKS DO December 12, 2018 09:30
[2018-12-12 09:50] VITALS: BP 120/65
[2018-12-12 10:20] VITALS: BP 132/69
[2018-12-12 10:35] VITALS: BP 132/69
--- NOTE | 2018-12-12 14:49 | Anesthesia-General Post-Op ---
MAC Patient Condition Mental Status/LOC: Same as Preop Cardiovascular: Satisfactory Nausea/Vomiting: Absent Respiratory: Satisfactory Pain: Controlled Complications: Absent Post Op Complications Complications None Follow Up Care/Instructions Patient Instructions None needed. Anesthesiology Discharge Order Discharge Order Patient was seen after the procedure this morning and she was doing well, no complaints, stable vital signs, no apparent adverse anesthesia problems. LISA CUETO DO December 12, 2018 14:49
--- NOTE | 2018-12-12 23:52 | OPERATIVE REPORT ---
DATE OF SERVICE: 12/12/2018 PREOPERATIVE DIAGNOSES: History of gastric and duodenal ulcers and gastritis. POSTOPERATIVE DIAGNOSES: 1. Esophagitis. 2. Gastric polyp. PROCEDURE: EGD with biopsy. SURGEON: Lukas Arriaza DO. FLOOR TRADER: None. ANESTHESIA: IV sedation by GOAL UMPIRE. SPECIMEN: Biopsy from the GE junction. BLOOD LOSS: Scant. FLUIDS: Per anesthesia. POSTOPERATIVE CONDITION: Stable. INDICATION FOR PROCEDURE: The patient is a 68-year-old female who has had some gastric and duodenal ulcers that had gotten worse, although when seen in the office she states her pain was all gone and she is doing much much better, needed to make sure that they had improved. FINDINGS: The patient did have any ulcers seen in the stomach or the duodenum. Did have some mild changes of the GE junction and biopsy done, but no other obvious pathology. PROCEDURE NOTE: After informed consent was obtained, the patient was brought to the endoscopy suite, placed in the bed in left lateral decubitus position. Administered IV sedation by the GOAL UMPIRE who then monitored her vitals the entire time, heart rate, blood pressure and pulse ox. A scope was inserted down the mouth through the esophagus into the stomach, pushed through towards the duodenum, took a picture of the duodenum. I did not see any ulcers. Pulled back in the antrum, again did not see any ulcers. Retroflexed the scope, did not see any ulcers. Did see a small gastric polyp, took a picture of this and then pulled back into the GE junction, looked like some mild esophagitis. I would like to do some biopsies here at the GE junction, but again did not see any ulcers. Pulled the scope up out of the esophagus and out the mouth. The patient tolerated the procedure and she was recovered in the endoscopy suite. Job ID: [id number] DocumentID: [id number] Dictated Date: 12/12/2018 13:29:37 Die Cast Operator Date: 12/12/2018 23:51:45 Dictated By: LUKAS ARRIAZA DO
== END 2018-12-12 10:35 | disposition home or self-care (01) ==
LOC: ENDO 07:36
PROVIDERS: ATTEND Surgery
DX: K21.0 Gastro-esophageal reflux disease with esophagitis (principal); K31.7 Polyp of stomach and duodenum; K29.50 Unspecified chronic gastritis without bleeding; I10 Essential (primary) hypertension; E78.5 Hyperlipidemia, unspecified; E11.9 Type 2 diabetes mellitus without complications; Z87.891 Personal history of nicotine dependence; K27.9 Peptic ulcer, site unspecified, unspecified as acute or chronic, without hemorrhage or perforation; Z79.899 Other long term (current) drug therapy; Z79.4 Long term (current) use of insulin; Z88.5 Allergy status to narcotic agent
CPT/HCPCS: 88305